=== PATIENT | female | born 1945 | race Caucasian/White ===

== ENCOUNTER → 2023-09-18 06:44 | Outpatient (REF) | payer MEDICARE, SELFPAY ==
[2023-09-18 07:55] LABS: Urine Albumin Trace (Neg - Trace); Urine Bilirubin Negative (Negative); Urine Character Clear (Clear); Urine Color Yellow; Urine Glucose Negative (Negative); Urine Ketone Negative (Negative); Urine Leukocyte Trace (Negative); Urine Nitrite Negative (Negative); Urine Occult Blood Negative (Negative); Urine Urobilinogen Negative (Neg - 1+)
[2023-09-18 08:10] LABS: Urine Bacteria Few (Negative); Urine Mucus Few; Urine Red Blood Cell 0-2 /HPF (0-2)
[2023-09-18 08:11] LABS: % Basophils 1.1 % (0-2); % Eosinophils 2.3 % (0-6); % Immature Granulocytes 0.2 % (0-0.5); % Lymphocytes 30.8 % (20.5-51.1); % Neutrophils 56.6 % (42.2-75.2); Absolute Basophils 0.1 10^3/uL (0-0.2); Absolute Eosinophils 0.1 10^3/uL (0-0.7); Absolute Lymphocytes 1.9 10^3/uL (1.2-3.4); Absolute Monocytes 0.6 10^3/uL (0.1-0.6); Absolute Neutrophils 3.5 10^3/uL (1.4-6.5); Hematocrit 37.8 % (37.0-47.0); Hemoglobin 12.3 g/dL (12.0-16.0); Mean Corp Hgb Conc. 32.5 g/dL (33.0-37.0); Mean Corpuscular Hgb 28.1 pg (27.0-31.0); Mean Corpuscular Volume 86.5 fL (81.0-99.0); Mean Platelet Volume 10.1 fL (7.4-10.4); Nucleated Red Blood Cells % 0 %; Platelet Count 242 10^3/uL (130-400); Red Blood Cell Count 4.37 10^6/uL (4.20-5.40); Red Cell Dist. Width 14.3 % (11.5-14.5); White Blood Cell Count 6.1 10^3/uL (4.8-10.8)
[2023-09-18 08:13] LABS: Erythrocyte Sed Rate 24 mm/hour (0-20)
[2023-09-18 08:42] LABS: ALT (SGPT) 26 U/L (0-35); AST (SGOT) 27 U/L (14-36); Albumin 3.7 g/dl (3.5-5.0); Alkaline Phosphatase 76 U/L (38-126); Blood Urea Nitrogen 29 mg/dl (7-17); Calcium 9.3 mg/dl (8.4-10.2); Carbon Dioxide 24 mmol/L (22-30); Chloride 105 mmol/L (98-107); Glucose 125 mg/dl (70-99); HDL Cholesterol 52 mg/dl; Iron 65 ug/dl (37-170); Potassium 3.9 mmol/L (3.5-5.1); Sodium 139 mmol/L (135-145); Total Bilirubin 0.5 mg/dl (0.2-1.3); Total Cholesterol 116 mg/dl (50-199); Total Protein 6.1 g/dl (6.3-8.2); eGFR > 60.00
[2023-09-18 08:52] LABS: Percent Saturation 19 % (20-50); Total Iron Binding Capacity 336 ug/dl (265-497)
[2023-09-18 09:01] LABS: LDL Cholesterol, Calculated 20 mg/dl; Triglyceride 224 mg/dl (10-149); Very Low Density Lipoprotein 44 mg/dl (0-30)
[2023-09-18 09:06] LABS: Free T4 1.33 ng/dl (0.78-2.19)
[2023-09-18 09:18] LABS: Glycohemoglobin (HgbA1c) 6.5 % (4.0-5.6)
[2023-09-18 09:24] LABS: Ferritin 33.6 ng/ml (11.1-264.0)
[2023-09-18 09:31] LABS: Vitamin D, 25-OH*** 46.7 ng/mL (30-80)
[2023-09-18 09:40] LABS: Microalbumin/creatinine Ratio 50.9 mg/g
[2023-09-18 09:52] LABS: CRP, Highly Sensitive 0.88 mg/L
[2023-09-18 09:56] LABS: Folate 13.1 ng/ml (2.76-20)
[2023-09-20 11:41] LABS: Lipoprotein a (Lp a) 8 mg/dL (<=29)
[2023-09-20 11:46] LABS: Apolipoprotein B 58 mg/dL (60-117)
[2023-09-21 17:02] LABS: Lyme Antibody Screen, EIA Negative (Negative)
[2023-09-23 13:58] LABS: TSH 1.57 uIU/ml (0.47-4.68)
== END ==
LOC: REG 06:44
PROVIDERS: ATTENDING PHYSICIAN Internal Medicine Hematology & Oncology; FAMILY PHYSICIAN Internal Medicine; REFERRING PHYSICIAN Ophthalmology Neuro-ophthalmology
DX: D50.0 Iron deficiency anemia secondary to blood loss (chronic) (principal); D51.9 Vitamin B12 deficiency anemia, unspecified; M31.6 Other giant cell arteritis; D64.9 Anemia, unspecified; Z78.9 Other specified health status; Z00.00 Encounter for general adult medical examination without abnormal findings; E55.9 Vitamin D deficiency, unspecified; E11.9 Type 2 diabetes mellitus without complications
CPT/HCPCS: 36415; 80053; 80061; 81003; 81015; 82043; 82172; 82306; 82570; 82728; 82746; 83036; 83540; 83550; 83695; 84439; 84443; 85025; 85652; 86140; 86141; 86618

== ENCOUNTER → 2023-09-28 11:19 | Outpatient (REF) | payer MEDICARE, SELFPAY | LOC: HWWDC 11:19 | PROVIDERS: ATTENDING PHYSICIAN Internal Medicine | DX: Z12.31 Encounter for screening mammogram for malignant neoplasm of breast (principal) | CPT/HCPCS: 77063; 77067 ==

== ENCOUNTER → 2023-10-05 14:36 | Outpatient (REF) | payer MEDICARE, SELFPAY | LOC: DHCBC HW 14:36 | PROVIDERS: ATTENDING PHYSICIAN Internal Medicine Cardiovascular Disease | DX: I51.7 Cardiomegaly (principal) | CPT/HCPCS: 93306 ==

== ENCOUNTER → 2023-10-07 06:54 | Outpatient (REF) | payer MEDICARE, SELFPAY | LOC: MRI 06:54 | PROVIDERS: ATTENDING PHYSICIAN Physician Assistant Medical; FAMILY PHYSICIAN Internal Medicine | DX: M48.062 Spinal stenosis, lumbar region with neurogenic claudication (principal) | CPT/HCPCS: 72148 ==

== ENCOUNTER → 2023-10-19 08:30 | Outpatient (REF) | payer MEDICARE, SELFPAY ==
[2023-10-19 10:25] LABS: % Basophils 1.3 % (0-2); % Eosinophils 1.7 % (0-6); % Immature Granulocytes 0.2 % (0-0.5); % Lymphocytes 21.9 % (20.5-51.1); % Monocytes 11.4 % (1.7-9.3); % Neutrophils 63.5 % (42.2-75.2); Absolute Basophils 0.1 10^3/uL (0-0.2); Absolute Eosinophils 0.1 10^3/uL (0-0.7); Absolute Lymphocytes 1.4 10^3/uL (1.2-3.4); Absolute Monocytes 0.7 10^3/uL (0.1-0.6); Absolute Neutrophils 4.1 10^3/uL (1.4-6.5); Hematocrit 42.2 % (37.0-47.0); Hemoglobin 13.2 g/dL (12.0-16.0); Mean Corp Hgb Conc. 31.3 g/dL (33.0-37.0); Mean Corpuscular Hgb 27.6 pg (27.0-31.0); Mean Corpuscular Volume 88.1 fL (81.0-99.0); Mean Platelet Volume 10.7 fL (7.4-10.4); Nucleated Red Blood Cells % 0 %; Platelet Count 213 10^3/uL (130-400); Red Blood Cell Count 4.79 10^6/uL (4.20-5.40); Red Cell Dist. Width 15.1 % (11.5-14.5); White Blood Cell Count 6.4 10^3/uL (4.8-10.8)
[2023-10-19 10:59] LABS: Erythrocyte Sed Rate 20 mm/hour (0-20)
[2023-10-19 11:04] LABS: Iron 42 ug/dl (37-170)
[2023-10-19 11:09] LABS: C-Reactive Protein < 5.00 mg/L (0.0-10.00)
[2023-10-19 11:16] LABS: Percent Saturation 12 % (20-50); Total Iron Binding Capacity 340 ug/dl (265-497)
[2023-10-19 11:45] LABS: Ferritin 29.2 ng/ml (11.1-264.0)
== END ==
LOC: REG 08:30
PROVIDERS: ATTENDING PHYSICIAN Internal Medicine Hematology & Oncology; FAMILY PHYSICIAN Internal Medicine; OTHER PHYSICIAN Ophthalmology; REFERRING PHYSICIAN Ophthalmology Neuro-ophthalmology
DX: D50.0 Iron deficiency anemia secondary to blood loss (chronic) (principal); D51.9 Vitamin B12 deficiency anemia, unspecified; M31.6 Other giant cell arteritis
CPT/HCPCS: 36415; 82728; 83540; 83550; 85025; 85652; 86140

== ENCOUNTER → 2023-10-21 09:13 | Outpatient (REF) | payer MEDICARE, SELFPAY | LOC: RCS 09:13 | PROVIDERS: ATTENDING PHYSICIAN Internal Medicine Cardiovascular Disease; FAMILY PHYSICIAN Internal Medicine | DX: I48.0 Paroxysmal atrial fibrillation (principal) | CPT/HCPCS: 93225; 93226 ==

== ENCOUNTER → 2023-11-25 06:54 | Outpatient (REF) | payer MEDICARE, SELFPAY ==
[2023-11-25 07:52] LABS: % Basophils 1.5 % (0-2); % Eosinophils 1.7 % (0-6); % Immature Granulocytes 0.2 % (0-0.5); % Monocytes 8.3 % (1.7-9.3); % Neutrophils 60.3 % (42.2-75.2); Absolute Basophils 0.1 10^3/uL (0-0.2); Absolute Eosinophils 0.1 10^3/uL (0-0.7); Absolute Lymphocytes 1.7 10^3/uL (1.2-3.4); Absolute Monocytes 0.5 10^3/uL (0.1-0.6); Absolute Neutrophils 3.6 10^3/uL (1.4-6.5); Hematocrit 39.6 % (37.0-47.0); Mean Corp Hgb Conc. 32.8 g/dL (33.0-37.0); Mean Corpuscular Hgb 28.3 pg (27.0-31.0); Mean Corpuscular Volume 86.1 fL (81.0-99.0); Mean Platelet Volume 9.9 fL (7.4-10.4); Nucleated Red Blood Cells % 0 %; Platelet Count 237 10^3/uL (130-400); Red Cell Dist. Width 14.5 % (11.5-14.5)
[2023-11-25 08:18] LABS: Urine Albumin Negative (Neg - Trace); Urine Bilirubin Negative (Negative); Urine Character Clear (Clear); Urine Color Yellow; Urine Glucose Negative (Negative); Urine Ketone Negative (Negative); Urine Leukocyte Negative (Negative); Urine Nitrite Negative (Negative); Urine Occult Blood Negative (Negative); Urine Specific Gravity 1.015 (<1.030); Urine Urobilinogen Negative (Neg - 1+)
[2023-11-25 09:18] LABS: Iron 66 ug/dl (37-170)
[2023-11-25 09:27] LABS: Percent Saturation 18 % (20-50); Total Iron Binding Capacity 364 ug/dl (265-497)
[2023-11-25 09:41] LABS: Erythrocyte Sed Rate 18 mm/hour (0-20)
[2023-11-25 09:53] LABS: ALT (SGPT) 38 U/L (0-35); AST (SGOT) 35 U/L (14-36)
[2023-11-25 09:55] LABS: ALT (SGPT) 38 U/L (0-35); AST (SGOT) 35 U/L (14-36); Albumin 4.3 g/dl (3.5-5.0); Alkaline Phosphatase 98 U/L (38-126); Blood Urea Nitrogen 27 mg/dl (7-17); Calcium 9.5 mg/dl (8.4-10.2); Carbon Dioxide 23 mmol/L (22-30); Chloride 109 mmol/L (98-107); Glucose 122 mg/dl (70-99); HDL Cholesterol 67 mg/dl; LDL Cholesterol, Calculated 32 mg/dl; Potassium 4.4 mmol/L (3.5-5.1); Sodium 138 mmol/L (135-145); Total Bilirubin 0.3 mg/dl (0.2-1.3); Total Cholesterol 134 mg/dl (50-199); Total Protein 6.8 g/dl (6.3-8.2); Triglyceride 177 mg/dl (10-149); Very Low Density Lipoprotein 35 mg/dl (0-30); eGFR > 60.00
[2023-11-25 10:11] LABS: C-Reactive Protein < 5.00 mg/L (0.0-10.00)
[2023-11-25 10:28] LABS: Ferritin 22.8 ng/ml (11.1-264.0)
[2023-11-25 12:12] LABS: Glycohemoglobin (HgbA1c) 6.4 % (4.0-5.6)
== END ==
LOC: REG 06:54
PROVIDERS: ATTENDING PHYSICIAN Ophthalmology; FAMILY PHYSICIAN Internal Medicine; OTHER PHYSICIAN Internal Medicine Hematology & Oncology; OTHER PHYSICIAN Ophthalmology Neuro-ophthalmology; REFERRING PHYSICIAN Internal Medicine Cardiovascular Disease
DX: D50.0 Iron deficiency anemia secondary to blood loss (chronic) (principal); D51.9 Vitamin B12 deficiency anemia, unspecified; E78.2 Mixed hyperlipidemia; E11.9 Type 2 diabetes mellitus without complications; N39.0 Urinary tract infection, site not specified; H40.013 Open angle with borderline findings, low risk, bilateral; H43.813 Vitreous degeneration, bilateral; H34.11 Central retinal artery occlusion, right eye; D50.1 Sideropenic dysphagia
CPT/HCPCS: 36415; 80053; 80061; 81003; 82728; 83036; 83540; 83550; 84450; 84460; 85025; 85652; 86140

== ENCOUNTER → 2023-12-07 13:48 | Outpatient (REF) | payer MEDICARE, SELFPAY ==
[2023-12-07 14:17] LABS: % Immature Granulocytes 0.3 % (0-0.5); % Lymphocytes 22.6 % (20.5-51.1); % Monocytes 12.7 % (1.7-9.3); % Neutrophils 62.4 % (42.2-75.2); Absolute Lymphocytes 0.9 10^3/uL (1.2-3.4); Absolute Monocytes 0.5 10^3/uL (0.1-0.6); Absolute Neutrophils 2.4 10^3/uL (1.4-6.5); Hematocrit 40.1 % (37.0-47.0); Mean Corp Hgb Conc. 32.4 g/dL (33.0-37.0); Mean Corpuscular Hgb 28.3 pg (27.0-31.0); Mean Corpuscular Volume 87.4 fL (81.0-99.0); Mean Platelet Volume 9.8 fL (7.4-10.4); Nucleated Red Blood Cells % 0 %; Platelet Count 185 10^3/uL (130-400); Red Blood Cell Count 4.59 10^6/uL (4.20-5.40); Red Cell Dist. Width 14.3 % (11.5-14.5); White Blood Cell Count 3.9 10^3/uL (4.8-10.8)
[2023-12-07 14:21] LABS: Urine Albumin Trace (Neg - Trace); Urine Bilirubin Negative (Negative); Urine Character Clear (Clear); Urine Color Yellow; Urine Glucose Negative (Negative); Urine Ketone Trace (Negative); Urine Leukocyte Negative (Negative); Urine Nitrite Negative (Negative); Urine Occult Blood Negative (Negative); Urine Specific Gravity 1.015 (<1.030); Urine Urobilinogen Negative (Neg - 1+)
[2023-12-07 14:48] LABS: ALT (SGPT) 43 U/L (0-35); AST (SGOT) 44 U/L (14-36); Alkaline Phosphatase 78 U/L (38-126); Blood Urea Nitrogen 21 mg/dl (7-17); Calcium 8.9 mg/dl (8.4-10.2); Carbon Dioxide 24 mmol/L (22-30); Chloride 105 mmol/L (98-107); Glucose 145 mg/dl (70-99); Lipase 100 U/L (23-300); Potassium 3.9 mmol/L (3.5-5.1); Sodium 136 mmol/L (135-145); Total Bilirubin 0.3 mg/dl (0.2-1.3); Total Protein 6.5 g/dl (6.3-8.2); eGFR > 60.00
[2023-12-07 15:02] LABS: Urine Mucus Few
[2023-12-07 15:03] LABS: Urine Bacteria Few (Negative); Urine Red Blood Cell 0-2 /HPF (0-2); Urine White Cell 0-2 /HPF (0-5)
== END ==
LOC: REG 13:48
PROVIDERS: ATTENDING PHYSICIAN Internal Medicine
DX: R10.9 Unspecified abdominal pain (principal)
CPT/HCPCS: 36415; 80053; 81003; 81015; 83690; 85025; 87086

== ENCOUNTER → 2023-12-08 08:08 | Outpatient (REF) | payer MEDICARE, SELFPAY | LOC: HWRAD 08:08 | PROVIDERS: ATTENDING PHYSICIAN Internal Medicine | DX: R10.9 Unspecified abdominal pain (principal) | CPT/HCPCS: 74177; Q9967 ==

== ENCOUNTER 2023-12-14 09:26 | Inpatient (IN) | payer MEDICARE, SELFPAY ==
[2023-12-11 16:24] VITALS: BP 158/71
[2023-12-11] MEDS: TYLENOL 650 MG PO (17:03)
[2023-12-11 17:07] LABS: COVID-19 Antigen Negative (Negative)
--- NOTE | 2023-12-11 19:18 | ED.GENMED ---
History of Present Illness
General
Chief Complaint: Weakness
Source: patient, spouse and physician
Exam Limitations: none
Time Seen by Provider: 12/11/23 18:58
Nursing documentation reviewed up to this point in time: agreed with
Travel History
Have you had any contact with someone who has COVID-19?: No
Do you have any symptoms of coronavirus? Fever > 100 degrees, chills, cough, shortness of breath, sore throat, loss of taste or smell, muscle aches, or headache?: No
History of Present Illness
History of Present Illness:
78-year-old female presents the emergency department complaining of weakness, numbness and tingling, back pain and neck pain. She has worse pain in her legs. She denies any fecal incontinence, she does have urinary incontinence, but is unchanged.
No groin numbness. She has been having diarrhea, and is on Augmentin for diverticulitis.
Past History
Past History
ED Past Medical History: GERD, HTN, Hypercholesterolemia, NIDDM, Valvular disease, Other (Vertigo, retinal migraine, chronic lacunar frontal lobe, COVID-19 12/2021) and Other (pancreatic cysts, fatty liver, psoriasis, iron deficiency, epidural
steroids lumbar spine)
ED Past Surgical History: Cardiac (aortic valve replacement 2009), Cholecystectomy, Gynecological (hysterectomy 1978), Orthopedic (right carpal tunnel release, cervical spine discectomy 1996, bilateral knee replacements), Tonsilectomy, Urological
(ureteral stent and removal 2013) and Other (cataract extractions OU, lumbar rhizotomy)
Social History
Tobacco: Non-smoker
Alcohol: None
Drug: None
Personal:
Living: with family
Employment: Retired
Family History
Family History: Other
Review of Systems
Review of Systems
Allergies reviewed?: Yes
All Other Systems: Not applicable
Constitutional: Reports no symptoms
EENT: Reports no symptoms
Respiratory: Reports no symptoms
Cardiac: Reports no symptoms
ABD/GI: Reports abdominal pain
: Reports no symptoms
Musculoskeletal: Reports back pain
Skin: Reports no symptoms
Neurological: Reports no symptoms
Endocrine: Reports no symptoms
Hematologic/Lymphatic: Reports no symptoms
Phy Exam
Physical Exam
Physical Exam:
Physical Exam
General: Appears uncomfortable temperature 99.5
Neck: supple. no meningeal signs. normal posterior pharynx
Heart: s1/s2 regular rate and rhythm, no murmur. equal radial
pulses.
HEENT: Pupils equal round reactive to light, EOMI
Lungs: no acute respiratory distress. clear bilaterally
Abdomen: normal bowel sounds. Diffuse abdominal tenderness. no CVAT
Neuro: alert and oriented. no focal neurological deficits cranial nerves II through XII intact
Skin: no rash
Psychiatric: well kept. interactive and cooperative
Extremities: no edema. no calf tenderness. negative homans. good distal pulses, full range of motion of the lower legs, but with pain
Course
Orders/Labs/Results
Orders:
Orders
12/11/23 16:32
Acetaminophen [Tylenol] 650 mg .ROUTE .STK-MED ONE
12/11/23 16:38
COVID-19 Antigen Urgent
Source: Nasal Swab
Influenza A+B Rapid Molecular Urgent
FRANCOISE Source: Nasal Swab
Specimen Description:
12/11/23 17:03
Acetaminophen [Tylenol] 650 mg PO NOW STA
12/11/23 19:16
Iohexol [Omnipaque] See Protocol PO NOW STA
12/11/23 19:17
CT Abd/pel W Iv And Oral Contr Urgent
Comment:
Reason For Exam: diffuse abdominal pain, worsening, diarrhea
12/11/23 19:20
Complete Blood Count/With Diff Urgent
Prothrombin Time Urgent
12/11/23 19:22
Ondansetron Injectable [Zofran] 4 mg IV NOW STA
12/11/23 19:23
Electrocardiogram (*1) Stat
Reason for Study: Fatigue / Weakness
Electrocardiogram (*1) Urgent
EKG- Treatment ONCE
12/11/23 19:46
STOOL [C difficile Antigen & Toxins] Urgent
FRANCOISE Source: Feces/Stool
Specimen Description:
Stool Culture Urgent
FRANCOISE Source: Feces/Stool
Specimen Description:
12/11/23 19:54
Basic Metabolic Panel Urgent
12/11/23 21:19
Potassium Urgent
12/11/23 21:25
CT Head W/o Iv Contrast Urgent
Comment:
Reason For Exam: headache
Abnormal Lab Results
12/11/23 12/11/23 12/11/23
19:20 19:54 22:25
Absolute Monos (auto) 0.9 H 10^3/uL
(0.1-0.6)
Lymphocytes % 19.4 L %
(20.5-51.1)
Monocytes % 11.4 H %
(1.7-9.3)
PT 29.3 H Sec
(11.4-14.6)
Chloride 108 H mmol/L
(98-107)
BUN 23 H mg/dl
(7-17)
Glucose 122 H mg/dl
(70-99)
POC Glucose 116 H mg/dl
(70-99)
12/11/23 19:20
12/11/23 21:19
Vital Signs
Initial and Last Documented VS:
Initial Vital Signs
Temp Pulse Resp BP Pulse Ox
99.5 F 74 18 158/71 99
12/11/23 16:24 12/11/23 16:24 12/11/23 16:24 12/11/23 16:24 12/11/23 16:24
Last Documented Vital Signs
Temp Pulse Resp BP Pulse Ox
98.2 F 65 14 182/57 97
12/11/23 19:41 12/11/23 21:00 12/11/23 21:00 12/11/23 21:00 12/11/23 19:45
MDM/Problems Addressed
Differential Diagnosis Includes:
Cauda equina, sepsis, diverticulitis
MDM/Problems Addressed:
78-year-old female with weakness, diarrhea, CT concerning for possible inflammatory bowel, fever. Unclear etiology of fever. Possibly viral diarrhea. Patient with difficulty walking. Will admit to hospitalist. Patient also with a headache, no
concerning neurologic findings. Low back pain with radiculopathy. Do not suspect cauda equina.
Chronic conditions affecting care: HTN and Other (Aortic stenosis)
Acute Exacerbation and/or Progression of Chronic Illness: HTN and Other (Aortic stenosis)
*Radiology
Radiology exam reviewed: radiology read reviewed (CT head no acute finding, CT abdomen pelvis shows possible inflammatory bowel disease of terminal ileum, left adrenal mass, diverticulosis, rectosigmoid nondistention)
*Pulse Oximetry
Patient hypoxic: no
*EKG
Interpreted by ED Provider?: Yes
EKG Intrepretation Date: 12/11/23
EKG Intrepretation Time: 19:40
Interpretation: abnormal
Comparison EKG: changes noted
Heart Rate: 54
Rate: bradycardiac
Rhythm: sinus
Paoli: left axis deviation
Interval: normal interval
QRS Pattern: left bundle branch block
Ischemia: no ischemia
*Resistance Machine Welder Setter Interpretation
Rate: bradycardiac
Interpretation: abnormal
Heart Rate: 55
Rhythm: sinus
*Critical Care Note
Total Time (30-74mins, 75-104mins- exclusive of procedures): Not Applicable
Data Reviewed
Source: physician (INR 3.8 at office today)
Patient Management
Social determinants of health affecting care: Living situation
Discussion with other providers: Hospitalist
Escalation/DeEscalation of care consider admission/obs:
admit indicated
ED Attending Note
-
Portions of this chart may have been created with voice recognition software.� Occasional wrong word or��sound alike� substitutions may have occurred due to the inherent limitations of voice recognition software.
Discharge Plan
Departure
Patient Disposition: Admit
Date of Disposition: 12/11/23
Time of Disposition: 23:09
Admit to: Telemetry
Presentation/result/management discussed w/ accepting MD/DO: Hospitalist
Patient with high blood pressure during this ER visit?: Yes
Condition: Fair
Discharge Problem:
Weakness, Diarrhea, Low back pain, Headache
Prescriptions:
No Action
omeprazole 40 MG capsule,delayed release(DR/EC)
40 mg PO DAILY
riboflavin (vitamin B2) 400 MG tablet
400 mg PO DAILY
warfarin 5 mg tablet
2.5 mg PO SUFRSA
Patient Comments:
12/11/2023: Pt checked INR today, and then rechecks thursday for new dose
furosemide 20 mg tablet
20 mg PO DAILY
potassium chloride 20 mEq tablet extended release
20 meq PO DAILY
rosuvastatin 20 mg tablet
20 mg PO DAILY Qty: 90 0RF
losartan 50 mg tablet
50 mg PO BID
latanoprost 0.005 % drops
1 drp BOTH EYES HS
magnesium oxide 500 mg magnesium Tablet
500 mg PO TID
dorzolamide-timolol 22.3-6.8 mg/mL drops
1 drp BOTH EYES BID
amoxicillin-pot clavulanate 875-125 mg tablet
1 tab PO Q12H
insulin glargine [Lantus Solostar U-100 Insulin] 100 unit/mL (3 mL) insulin pen
6 unit SC DAILY
PreserVision AREDS 2,148 mcg-113 mg-45 mg-17.4mg Tablet
1 tab PO DAILY
Referrals:
Silvia Pena MD [Family Provider] -
Interventions
Interventions:
*Risk Screen - Suicide Last Done: 12/11/23 16:24
*General Assessment Last Done: 12/11/23 16:24
*Neglect/Abuse Screening Last Done: 12/11/23 16:24
ED- Cardiac Assessment Last Done: 12/11/23 21:27
ED- Neurological Assessment Last Done: 12/11/23 21:27
ED- Pulmonary Assessment Last Done: 12/11/23 21:27
Discharge Date and Time
Print Language: MOLDOVAN
[2023-12-11 19:26] LABS: % Basophils 0.5 % (0-2); % Eosinophils 0.4 % (0-6); % Immature Granulocytes 0.3 % (0-0.5); % Lymphocytes 19.4 % (20.5-51.1); % Monocytes 11.4 % (1.7-9.3); Absolute Lymphocytes 1.5 10^3/uL (1.2-3.4); Absolute Monocytes 0.9 10^3/uL (0.1-0.6); Absolute Neutrophils 5.3 10^3/uL (1.4-6.5); Hemoglobin 12.2 g/dL (12.0-16.0); Mean Corpuscular Hgb 28.6 pg (27.0-31.0); Mean Corpuscular Volume 86.7 fL (81.0-99.0); Mean Platelet Volume 9.7 fL (7.4-10.4); Nucleated Red Blood Cells % 0 %; Platelet Count 208 10^3/uL (130-400); Red Blood Cell Count 4.27 10^6/uL (4.20-5.40); Red Cell Dist. Width 13.7 % (11.5-14.5); White Blood Cell Count 7.8 10^3/uL (4.8-10.8)
[2023-12-11] MEDS: OMNIPAQUE 50 ML PO (19:32)
[2023-12-11] MEDS: ZOFRAN 4 MG IV (19:32)
[2023-12-11 19:37] LABS: INR 2.79; PT 29.3 Sec (11.4-14.6)
[2023-12-11 19:41] VITALS: BP 176/61
[2023-12-11 19:42] VITALS: BP 176/61
[2023-12-11 20:34] LABS: Blood Urea Nitrogen 23 mg/dl (7-17); Calcium 8.9 mg/dl (8.4-10.2); Carbon Dioxide 22 mmol/L (22-30); Chloride 108 mmol/L (98-107); Glucose 122 mg/dl (70-99); Sodium 136 mmol/L (135-145); eGFR > 60.00
[2023-12-11 21:00] VITALS: BP 182/57
[2023-12-11 21:54] LABS: Potassium 3.7 mmol/L (3.5-5.1)
[2023-12-11 22:27] VITALS: BP 166/58
[2023-12-11 22:27] LABS: Glucose - Point of Care 116 mg/dl (70-99)
[2023-12-11 23:00] VITALS: BP 147/56
--- NOTE | 2023-12-11 23:31 | HPS.HSE ---
Family Physician
-
Family Physician: Silvia Pena
Chief Complaint
-
Ongoing diarrhea, generalized weakness, bilateral knee pain, chronic headaches, right-sided rib pain
History of Present Illness
78-year-old female complaining of acute generalized weakness arms, legs and pain in her knees today. She saw her PCP in the office today who sent her to the ER for evaluation because she had a temperature of 100 F in the office. She has history of
lumbar back pain with history of lumbar epidurals and lumbar rhizotomy left side. She has been having right-sided back pain and is scheduled for an epidural with her pain management in [place]. She also complains of right posterior back pain
along the 12th rib area denies any injury. On Thursday she reports she had abdominal cramping with some pudding-like and pencil like stools she called her PCP who placed her on Augmentin for concern of diverticulitis since she had first episode in
August. She has not told her doctor or GI doctor that she has pencil like stools and pudding-like stools with her urinary incontinence since August that is ongoing. I advised the patient we will consult GI given her CT shows possible
inflammatory bowel disease possible Crohn's. She denies sore throat, chest pain, palpitations, cough, shortness of breath, current abdominal pain, nausea, vomiting, watery diarrhea, blood in stool, mucus in stool, dysuria, suprapubic tenderness.
She is also complaining of her chronic daily migraine headaches for which she takes Tylenol 1000 mg in the a.m. She was given Tylenol 1000 mg in the ER for pain.
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
stenosis, DM2 chronic diastolic CHF, HLD, obesity, CVA small right frontal periventricular chronic hemorrhagic lacunar infarct, small chronic lacunar infarct involving the right brachium pontis, recurrent melena and iron deficiency anemia, gastric
antral vascular ectasia with GI bleed Hx, GERD, diverticulosis with colonic polyps, fatty liver, vertigo, psoriasis, COVID 19 Dec 2021.
Medical History
Past Medical History
Past Medical History: Reports Other
Additional Past Medical History:
1. Aortic stenosis with previous mechanical AVR in July
� � 2009.
2. Chronic diastolic heart failure with preserved ejection
� � fraction, EF 55-60 percent.
3. Pulmonary hypertension
4. Left bundle branch block
5. Transient complete heart block
6. Paroxysmal atrial fibrillation
7. Sick sinus syndrome
8. Recurrent melena and iron deficiency anemia.
9. 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
10.Gastroesophageal reflux disease.
11.Diverticulosis and colon polyps.
12.Diabetes.
13.Hypertension.
14.Hyperlipidemia.
15.Fatty liver.
16. Vertigo
17. Retinal migraine
18. CVA
19. Pancreatic cyts
20. Psoriasis
Past Surgical History: Reports Other
Additional Past Surgical History:
Cardiac (mechanical aortic valve replacement 2009), Cholecystectomy, Gynecological (hysterectomy 1978), Orthopedic (right carpal tunnel release, cervical spine discectomy 1996, bilateral knee replacements), Tonsilectomy, Urological (ureteral stent
and removal 2013) and Other (cataract extractions OU, lumbar rhizotomy)
Social History
Tobacco: Non-smoker
Alcohol: None
Drug: None
Personal:
Living: With Family
Family History
Family History: Not pertinent
Allergies / Home Medications
Allergies reflects when Allergies were last updated in [employer].
Home Medications with original date entered in [employer]
Allergy/Medication List:
Allergies
Allergy/AdvReac Type Severity Reaction Status Date / Time
rizatriptan Allergy Foggy/Scared Verified 12/11/23 19:29
feeling
sumatriptan Allergy Foggy/Scared Verified 12/11/23 19:29
feeling
topiramate Allergy Foggy/Scared Verified 12/11/23 19:29
feeling
valproic acid Allergy Foggy/Scared Verified 12/11/23 19:29
feeling
Home Medications
omeprazole 40 mg capsule,delayed release 40 mg PO DAILY Gastrointestinal issue 06/24/19
riboflavin (vitamin B2) 400 mg tablet 400 mg PO DAILY Supplement 02/18/22
warfarin 5 mg tablet 2.5 mg PO SUFRSA Blood clot prevention/tx 07/02/22
furosemide 20 mg tablet 20 mg PO DAILY Fluid Retention/Swelling 11/25/22
potassium chloride 20 mEq tablet,extended release 20 meq PO DAILY Electrolyte Repletion 11/25/22
rosuvastatin 20 mg tablet 20 mg PO DAILY #90 tabs 12/24/22
amoxicillin 875 mg-potassium clavulanate 125 mg tablet 1 tab PO Q12H 12/11/23
dorzolamide 22.3 mg-timolol 6.8 mg/mL eye drops 1 drp BOTH EYES BID 12/11/23
insulin glargine 100 unit/mL (3 mL) subcutaneous pen (Lantus Solostar U-100 Insulin) 6 unit SC DAILY 12/11/23
latanoprost 0.005 % eye drops 1 drp BOTH EYES HS 12/11/23
losartan 50 mg tablet 50 mg PO BID 12/11/23
magnesium oxide 500 mg PO TID 12/11/23
vitamins A,C,I-drxw-dwlvzv 2,148 mcg-113 mg-45 mg-17.4 mg tablet (PreserVision AREDS) 1 tab PO DAILY 12/11/23
Review of Systems
-
History Source: Patient
A 12 point ROS was completed and negative except as noted: Yes
Constitutional: Reports Fever; Denies Weight Gain, Weight Loss or Chills
EENT: Denies Sore Throat or Runny Nose
Respiratory: Reports Other (Right-sided rib pain along 12th rib); Denies Cough or Trouble Breathing
Cardiac: Denies Chest Pain, Diaphoresis, Palpitations or Syncope
Abdomen/GI: Reports Diarrhea (Ongoing pencillike/pudding-like stools); Denies Abdominal Pain, Nausea, Vomiting, Constipated, Bloody Stools, Black Stools or Anorexia
: Reports Incontinence (Chronic urinary); Denies Dysuria, Frequency, Flank Pain, Difficulty Voiding or Urgency
Musculoskeletal: Reports Joint Pain (Bilateral knee pain); Denies Joint Swelling or Edema
Skin: Denies Itching or Rash
Neurological: Reports Headache (Chronic daily) and Weakness (Generalized with no focal deficits); Denies Dizzy or Numbness
Endocrine: Reports No Symptoms
Hematologic/Lymphatic: Reports No Symptoms
Psych: Reports Calm
Physical Exam
Vital Signs
Vital Signs
Temp Pulse Resp BP Pulse Ox
98.2 F 65 14 182/57 97
12/11/23 19:41 12/11/23 21:00 12/11/23 21:00 12/11/23 21:00 12/11/23 19:45
Physical Exam
General: Comfortable, Conversant and Obese; No Fever or Chills
HEENT: NormoCephalic, Anicteric, Moist mucous membranes, PERRLA, [place] Conjunctivae and No Ptosis
Respiratory: Clear and Other (Tenderness along right posterior 12th rib muscle on palpation); No Wheezes, Rales or Rhonchi
Cardiac: S1/S2, Bradycardia (Sinus bradycardia) and Other (Systolic with known mechanical AVR); No Murmur, Rub, Gallop, Peripheral Edema, Calf Tenderness or JVD
Breast: Deferred by me
GI: Soft, Non Tender, Non Distended, Normal Bowel Sounds and No Hepatosplenomegaly
Rectal: Deferred by Provider
Genito-urinary: Deferred by me
Musculoskeletal: No Clubbing, No Cyanosis, No Edema and Other (History of bilateral knee replacements no joint effusions no rashes)
Skin: Warm and Dry; No Rash or Jaundice
Neuro: AO x 3, No Motor Deficits, Nonfocal/grossly intact, Cranial Nerves Intact and No Sensory Deficits; No Slurred Speech, Facial Droop or Tremors
Psych: Calm
Laboratory Results
-
12/11/23 19:20
12/11/23 21:19
Laboratory Results
PT 29.3 Sec (11.4-14.6) H 12/11/23 19:20
INR 2.79 12/11/23 19:20
Total Bilirubin Cancelled 12/11/23 19:54
AST Cancelled 12/11/23 19:54
ALT Cancelled 12/11/23 19:54
Alkaline Phosphatase Cancelled 12/11/23 19:54
Data Reviewed
-
CT Scan: Report Reviewed by me
Lab Data: Labs Reviewed by me
Impression/Plan
-
Impression/plan:
Observation MedSurg
#Ongoing diarrhea concern for inflammatory bowel disease/Rectosigmoid region mild distention cannot rule out mass
Has been taking Augmentin for diverticulitis by PCP will STOP as no diverticulitis on CT
-Stool cultures, stool WBC, C. difficile if watery diarrhea
-Consult GI
-PT/OT/case management consult
-
CT abdomen pelvis with IV and oral contrast:
1. Possible inflammatory bowel disease of the terminal ileum such as Crohn's. Peristalsis cannot be excluded�new mild left adrenal mass
2. Persistent mild nondistention of the rectosigmoid region mass cannot be excluded
3. Cystic pancreatic masses previously evaluated on MRI showed only a mass in pancreatic head no malignancy
4. Stable left adrenal mass noted to be benign adenoma by MRI
5. Diverticulosis no diverticulitis
CT head: No acute intracranial normality. Mild atrophy stable
#Acute on chronic lumbar back pain right side/rib pain due to musculoskeletal strain
#History of lumbar epidural/lumbar rhizotomy left-sided
-Patient follows with pain management Dr. Segura in [place] is due for right-sided epidural
-Lidoderm patch to right rib
#Acute on chronic daily headaches
#Retinal migraines
#Ischemic optic neuropathy right eye
-Continue Tylenol 1000 mg a.m. and as needed twice daily
-Continue latanoprost 1 drop both eyes at bedtime
-Continue B2 400 mg daily
#Acute on chronic bilateral knee pain with ambulatory dysfunction
#History of bilateral knee replacements
Follows with Dr. Dang
Continue Tylenol in a.m. and twice daily as needed follow-up with pain management
-PT/OT/case management eval
#Iron deficiency
-Patient reports has appointment end of December with Dr. Cortez for iron infusion
Hgb 12.2, MCV 86.7
#HTN�benign
BP 171/84
-Continue losartan 50 mg twice daily
#Hypomagnesemia hx
-Check mag level
-Hold Mag-Ox 500 mg 3 times daily due to persistent diarrhea
#Chronic urinary incontinence
Denies dysuria or suprapubic tenderness
#Paroxysmal A-fib on Coumadin
#Hx LBBB
EKG: Sinus bradycardia with PVCs 54 bpm, LBBB has replaced incomplete RBBB QTc 477 MS
2D echo 10/05/2023: EF 55 to 60%, no wall normality, mild to moderate MR, mechanical aortic valve with peak mean gradient 32/17 mmHg, trace aortic regurgitation. MR has progressed from mild to moderate
-Follows with [facility] cardiology
-INR 2.79
# Aortic stenosis status post mechanical AVR 2009
Patient on Coumadin INR 2.79
-Continue Coumadin 2.5 mg Thursday
-Follow INR
#Hx transient heart block/SSS
-EKG: Sinus bradycardia with PVCs 54 bpm, LBBB has replaced incomplete RBBB QTc 477 MS
#Hx CVA
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
#Chronic diastolic heart failure
I/O, daily weights
Hold Lasix 20 mg daily
#DM2
Accu-Cheks with SSI, check HgbA1c
-Lantus 6 units subcu daily
#HLD
-Continue Crestor 20 mg daily
#GERD
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
-Continue omeprazole 40 mg daily
#Obesity due to excess calorie consumption
Weight loss recommended low-fat diet
Other PMH:
recurrent melena
diverticulosis with colonic polyps
fatty liver
vertigo
psoriasis
COVID 19 Dec 2021
DVT prophylaxis
Continue [facility] Coumadin
Full code
[2023-12-11 23:56] VITALS: BMI 32.2
[2023-12-12] VITALS (9 sets, daily range): BP systolic 129–163; BP diastolic 50–84; PULSE 53; O2SAT 95; BMI 30.3
[2023-12-12] MEDS: LIDOCAINE 4% PATCH 1 PATCH TOPICAL (00:49)
[2023-12-12] MEDS: TYLENOL 650 MG PO (00:49)
--- NOTE | 2023-12-12 00:52 | W.PN.UPDATE ---
Update Note
Progress Note Update
Patient seen independently and in conjunction with RACHEAL. I agree with the findings on history and physical exam and I agree with the assessment and plan as stated.
Briefly disease a 78-year-old with multiple medical problems including history of diverticulitis, hypertension, hyperlipidemia, chronic paretic cyst, diabetes and atrial fibrillation as well chronic osteoarthritis status post bilateral knee
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
difficulties. Reviewed the patient's diarrhea is likely from prior. He has chronic incontinence with pencillike stool. She does not have watery diarrhea. She has no evidence of dehydration. She had been placed on Augmentin for abdominal cramps
after discussing with PMD few days ago. She has no fevers or chills. She has no dysuria. Urinary frequency and incontinence unchanged from prior. She has no signs of a UTI otherwise. Patient shows no focal deficits on history.
On exam she has stable vital signs she is hemodynamically stable and in no acute distress. No focal neurological deficits. Abdominal exam was benign. Labs unremarkable.
Diarrhea�I agree with the PA, and no evidence of watery diarrhea or significant volume loss. She has a change in the caliber and consistency of stool which has been persistent for several months. CT shows no evidence of acute diverticulitis. We
are discontinuing the Augmentin and she does not need for antibiotics at this time. Holding MagOx. If low mag, consider slow-MAG for supplementation. CT scan cannot rule out a mass. Patient needs urgent visualization. Will consult GI. She can
ultimately have colonoscopy as an outpatient.
Weakness/lowback pain and ambulatory dysfunction�no focal neurological deficit. She does have chronic osteoarthritis as well as chronic spinal disease. She shows no signs of myelopathy. Will consult PT evaluation. She can continue pain regimen
and follow-up with pain management as an outpatient.
Atrial fibrillation�continue current management with anticoagulation on warfarin
Diabetes�continue lispro with sliding scale insulin
Full Code
--- NOTE | 2023-12-12 03:00 | PTCARENOTE ---
Rc'd patient from ED, AAOx3. No c/o pain at this time. Ambulated to bed with one assist. POC reviewed with patient.
[2023-12-12 07:17] LABS: % Basophils 0.7 % (0-2); % Eosinophils 0.9 % (0-6); % Immature Granulocytes 0.3 % (0-0.5); % Lymphocytes 28.4 % (20.5-51.1); % Monocytes 14.9 % (1.7-9.3); % Neutrophils 54.8 % (42.2-75.2); Absolute Basophils 0.1 10^3/uL (0-0.2); Absolute Eosinophils 0.1 10^3/uL (0-0.7); Absolute Neutrophils 3.8 10^3/uL (1.4-6.5); Hematocrit 35.6 % (37.0-47.0); Hemoglobin 11.9 g/dL (12.0-16.0); Mean Corp Hgb Conc. 33.4 g/dL (33.0-37.0); Mean Corpuscular Hgb 28.4 pg (27.0-31.0); Mean Platelet Volume 9.7 fL (7.4-10.4); Nucleated Red Blood Cells % 0 %; Platelet Count 212 10^3/uL (130-400); Red Blood Cell Count 4.19 10^6/uL (4.20-5.40); Red Cell Dist. Width 13.8 % (11.5-14.5); White Blood Cell Count 6.9 10^3/uL (4.8-10.8)
[2023-12-12 07:21] LABS: INR 2.68; PT 28.4 Sec (11.4-14.6)
[2023-12-12 07:25] LABS: Glucose - Point of Care 114 mg/dl (70-99)
[2023-12-12] MEDS: NOVOLOG FLEXPEN-LOW RESISTANCE SC ×2 (08:37→16:55)
[2023-12-12] MEDS: LASIX 20 MG PO (08:52)
[2023-12-12] MEDS: CRESTOR 20 MG PO (08:52)
[2023-12-12] MEDS: KCL 20 MEQ PO (08:53)
[2023-12-12] MEDS: COZAAR 50 MG PO ×2 (08:53→19:41)
[2023-12-12] MEDS: PROTONIX 40 MG PO (08:53)
[2023-12-12 08:54] LABS: ALT (SGPT) 72 U/L (0-35); AST (SGOT) 56 U/L (14-36); Albumin 3.6 g/dl (3.5-5.0); Alkaline Phosphatase 80 U/L (38-126); Blood Urea Nitrogen 17 mg/dl (7-17); Carbon Dioxide 25 mmol/L (22-30); Chloride 107 mmol/L (98-107); Estimated Creatinine Clearance 66 ml/min; Glucose 106 mg/dl (70-99); Magnesium 2.1 mg/dl (1.6-2.3); Sodium 138 mmol/L (135-145); Total Bilirubin 0.3 mg/dl (0.2-1.3); Total Protein 6.1 g/dl (6.3-8.2); eGFR > 60.00
[2023-12-12] MEDS: LANTUS 0.0599999999999999978 UNITS SC (08:54)
[2023-12-12] MEDS: COSOPT EYE DROPS 1 DROP BOTH EYES ×2 (08:54→19:42)
[2023-12-12] MEDS: COUMADIN 2.5 MG PO (08:56)
--- NOTE | 2023-12-12 09:29 | W.PN.HOSP.TC ---
Today's Communication/Plan
-
Spoke with GI
Hold Coumadin, Heparin Bridging to start soon, anticipated colonoscopy early next week -- per GI outpatient colonoscopy would be too high risk
PT/OT
Assessment / Plan
Assessment / Plan
Physical Exam
General: Not in acute distress
HEENT: Normocephalic
Respiratory: Clear to Auscultation Bilaterally
Cardiac: S1/S2, Bradycardia, Systolic murmur with known mechanical AVR
GI: Soft, Non Tender, Non Distended, Normal Bowel Sounds
Musculoskeletal: No Cyanosis, No Edema and Other (History of bilateral knee replacements no joint effusions no rashes)
Skin: Warm and Dry
Neuro: AAO x 3, Strength 5/5 in bilateral lower extremities, Sensation grossly intact bilaterally, Cranial Nerves Grossly Intact
Psych: Calm

CT abdomen pelvis with IV and oral contrast (as per radiologist's report):
1. Possible inflammatory bowel disease of the terminal ileum such as Crohn's. Peristalsis cannot be excluded�new mild left adrenal mass
2. Persistent mild nondistention of the rectosigmoid region mass cannot be excluded
3. Cystic pancreatic masses previously evaluated on MRI showed only a mass in pancreatic head no malignancy
4. Stable left adrenal mass noted to be benign adenoma by MRI
5. Diverticulosis no diverticulitis
CT head (as per radiologist's report): No acute intracranial normality. Mild atrophy stable

Assessment/Plan
78-year-old with multiple medical problems including history of diverticulitis, hypertension, hyperlipidemia, chronic paretic cyst, diabetes and atrial fibrillation as well chronic osteoarthritis status post bilateral knee replacement, degenerative
disc disease of the lumbosacral spine, history of duodenal bleeding gastric ectasia presented to the emergency department with the immediate of complaints but mostly diarrhea, weakness, low back pain with ambulatory difficulties. On admission, it
was reviewed -- the patient's diarrhea is likely from prior. He has chronic incontinence with pencil-like stool. She does not have watery diarrhea. She has no evidence of dehydration. She had been placed on Augmentin for abdominal cramps after
discussing with PMD few days ago. She had no fevers or chills, dysuria on admission. She had no signs or symptoms or urinary tract infection on admission. Urinary frequency and incontinence unchanged from prior. Patient shows no focal neurological
deficits on history.
#Ongoing diarrhea concern for inflammatory bowel disease/Rectosigmoid region mild distention cannot rule out mass
-Has been taking Augmentin for diverticulitis by PCP -- STOPPED it as no diverticulitis on CT
-Hold MagOx as that can cause diarrhea
-Monitor magnesium level
-Initial CT imaging could not rule out a mass
-Stool cultures, stool WBC, C. difficile if watery diarrhea
-GI consulted, recommendations appreciated: inpatient colonoscopy early next week -- per GI colonoscopy would be higher risk outpatient
-Hold Coumadin, monitor daily INR
-Heparin Bridge to start once INR is less than 2 to 2.5
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
-Consulted cardiology as patient wants cardiology on board
-PT/OT/case management consult
#Generalized Weakness
-Possibly from diarrhea vs. possible mass vs. possible inflammatory process
-Reported chronic back pain but no saddle anesthesia, bowel incontinence, has chronic (but not new urinary incontinence) and on neuro exam is able to demonstrate good strength in the bilateral upper and lower extremities
-Check TSH, vitamin B12
-PT/OT
#Chronic osteoarthritis
#Chronic spinal disease
#Acute on chronic lumbar back pain right side/rib pain due to musculoskeletal strain
#History of lumbar epidural/lumbar rhizotomy left-sided
-Patient follows with pain management Dr. Segura in [place] is due for right-sided epidural
-Lidoderm patch to right rib
-Pain control
-PT/OT
#Acute on chronic daily headaches
#Retinal migraines
#Ischemic optic neuropathy right eye
-Continue Tylenol 1000 mg a.m. and as needed twice daily
-Continue latanoprost 1 drop both eyes at bedtime
-Continue B2 400 mg daily
#Acute on chronic bilateral knee pain with ambulatory dysfunction
#History of bilateral knee replacements
Follows with Dr. Dang
Continue Tylenol in a.m. and twice daily as needed follow-up with pain management
-PT/OT/case management eval
#Iron deficiency
-Patient reports has appointment end of December with Dr. Cortez for iron infusion
Hgb 12.2, MCV 86.7
#HTN�benign
BP 171/84
-Continue losartan 50 mg twice daily
#Hypomagnesemia hx
-Magnesium level okay
-Monitor magnesium level give diarrhea
-Hold Mag-Ox 500 mg 3 times daily due to persistent diarrhea
#Chronic urinary incontinence
Denies dysuria or suprapubic tenderness
#Paroxysmal A-fib on Coumadin
#Hx LBBB
-EKG: Sinus bradycardia with PVCs 54 bpm, LBBB has replaced incomplete RBBB QTc 477 MS
-2D echo 10/05/2023: EF 55 to 60%, no wall normality, mild to moderate MR, mechanical aortic valve with peak mean gradient 32/17 mmHg, trace aortic regurgitation. MR has progressed from mild to moderate
-Follows with [facility]
-INR 2.79, coming down
-Holding Coumadin for now
-Monitor INR
-Heparin Bridge soon depending on INR (patient is anticipated to get a colonoscopy)
# Aortic stenosis status post mechanical AVR 2009
-Patient on Coumadin INR 2.79
-Hold Coumadin 2.5 mg Thursday
-Heparin Bridge once INR goes down to less than 2.5
-Follow INR
#Hx transient heart block/SSS
#Hx CVA
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
#Chronic diastolic heart failure
I/O, daily weights
Hold Lasix 20 mg daily given diarrhea
#DM2
Accu-Cheks with SSI, check HgbA1c
-Lantus 6 units subcu daily
#HLD
-Continue Crestor 20 mg daily
#GERD
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
-Continue omeprazole 40 mg daily
#Obesity due to excess calorie consumption
Weight loss recommended low-fat diet
Other PMH:
recurrent melena
diverticulosis with colonic polyps
fatty liver
vertigo
psoriasis
COVID 19 Dec 2021
DVT prophylaxis -- SCDs. Hold Coumadin with anticipated Heparin Bridging soon
Full code
Anticipated Discharge: > 48 hours
Subjective/Interval History
-
Date of Service: December 12, 2023
Patient was seen and examined. She reported bilateral lower extremity weakness and bilateral upper extremity weakness, she mentioned she pain in her knees which was thought to possibly be contributing to the weakness.
Objective Data
-
Labs:
Laboratory Results
12/11/23 12/12/23
21:19 06:12
WBC 6.9
Hgb 11.9 L
Hct 35.6 L
Plt Count 212
PT 28.4 H
INR 2.68
Sodium 138
Potassium 3.7 4.0
Chloride 107
Carbon Dioxide 25
BUN 17
Creatinine 0.7
Glucose 106 H
Calcium 9.0
Total Bilirubin 0.3
AST 56 H
ALT 72 H
Alkaline Phosphatase 80
Vital Signs:
Vital Signs
Temp Pulse Resp BP Pulse Ox
97.9 F 49 16 150/60 97
12/12/23 07:10 12/12/23 08:53 12/12/23 07:10 12/12/23 08:53 12/12/23 07:10
I&O
12/11/23 12/12/23 12/13/23
06:59 06:59 06:59
Intake Total 240 / 240
Balance 240 / 240
--- NOTE | 2023-12-12 10:03 | CON.GI ---
Addendum entered and electronically signed by Jacob Mckeon MD 12/12/23 11:46:
I saw and examined the patient.
The CLEARANCE DIVER's note was reviewed and I agree with the note.
Problem list:
-Change of bowel habits/abdominal discomfort-possible differential-colitis versus post diverticulitis versus IBS etc
(Abnormal CT findings showing concern for possible inflammatory small bowel disease, mild non-distention of the rectosigmoid area). Colonoscopy 2020-colon polyp +/diverticulosis. No colitis noted
--Recent diverticulitis August 2023, first episode
- history of pancreatic cysts, last MRI in April 2023 stable
-History of GAVE
-History of severe status post aortic valve replacement on Coumadin. 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
plan
Discussed benefits and risk of colonoscopy. Patient verbalized understanding and is agreeable for the procedure. Will tentatively plan colonoscopy for next week based on INR (preferably <1.5 )
Will discuss with medical team/cardiology about holding Coumadin with heparin bridge
If diarrhea persist will recommend stool studies
Lactose-free low-fat diet
Continue PPI
Will follow
Addendum entered and electronically signed by Imelda Howell NP 12/12/23 11:23:
Weakness being work-up by primary team. TT sent to Dr. Mcmullen re: GI recommendations.
Original Note:
Consultation
-
Date/Time Consultation Requested: 12/12/23 @ 00:29
Date/Time Consultation Performed: 12/12/23 @ 10:00
Requesting Provider: RACHEAL Delgadillo
Performing Provider: RACHEAL Metcalf; Dr. Mckeon
Reason for Consultation: Rectosigmoid thickening concern for mass, ongoing diarrhea since August
Medical History
Chief Complaint / HPI
Chief Complaint: Ongoing diarrhea, generalized weakness, chronic headaches, right-sided rib
History of Present Illness:
The patient is a 78-year-old female with a past medical history significant for paroxysmal atrial fibrillation on Coumadin, history of severe aortic stenosis status post [facility] aortic valve replacement in 2009, hypertension,
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
anemia, overactive bladder, prior cholecystectomy, who presents to the emergency room with a multitude of complaints including diarrhea, generalized weakness, chronic headaches, whom we are being asked to evaluate for in regards to abnormal CT
findings with diarrhea. Upon review of prior records, she is known to Dr. Ward outpatient, following with him secondary to iron deficiency anemia and known pancreatic cyst. Noted that she does have a history of GAVE and did have GI bleeding
several years ago which was treated with APC. She does follow with hematology and is getting intermittent iron infusions. She was placed on PPI twice daily, with continued observation of her blood counts. with no obvious signs of GI bleeding. In
regards to her known pancreatic cyst she had prior EUS as noted above, with MRI imaging this past April which did not show any alarming features or changes with plans to repeat her MRI next year. Of note, she did have CT imaging in August
for left lower quadrant pain which did show moderate acute distal sigmoid colon diverticulitis without evidence of abscess or perforation. She was placed on antibiotics by her PCP and did improve clinically. She did have imaging again on 12/07 due
to recurrent abdominal pain which did not show any evidence of diverticulitis, but did show a focal area of non-distention of the rectosigmoid junction which it was recommended for direct visualization. Today she reports having acute onset of
weakness as of yesterday. She notes that she could not walk which is not baseline for her as she is normally independent. In addition in regards to her weakness, since having diverticulitis in August she has had ongoing change of bowel habits.
She notes that her bowels are often soft and a pudding consistency and at other times within described as 'wormlike.' She denies any obvious signs of bleeding such as melena or hematochezia, but does continue to be iron deficient and is following
with hematology outpatient for IV iron infusions intermittently. She does admit to some crampiness in her abdomen primarily in the lower abdomen but no overt abdominal pain. She does admit to urgency with bowel movements but denies incontinence.
She denies any unintentional weight loss and notes that she is actively trying to lose weight with changes in her diet. She notes she has been eating more leafy green vegetables. She does admit to some mild nausea but denies any vomiting. She is
on chronic PPI. She otherwise denies any fevers, chest pain, shortness of breath, dysphagia, odynophagia, constipation, diarrhea, or swelling of the lower extremities. Prior EGD and colonoscopy as noted below. She denies use of NSAIDs or alcohol.
She is on Coumadin which she takes chronically for history of aortic valve replacement and A-fib. She follows with Dr. Rasheed from cardiology outpatient. She denies any family history of IBD or colon cancers or disorders. On admission she
underwent repeat CT imaging of the abdomen and pelvis with IV and oral contrast which did show some question of inflammatory bowel disease in the terminal ileum versus peristalsis along with persistent mild non-distention of the rectosigmoid region
as seen on prior CT, along with cystic pancreatic masses and a stable left adrenal mass. Also findings of diverticulosis without diverticulitis. CT of the head was done also which showed no acute intracranial abnormalities. Routine labs on
admission showed no overtly concerning findings, but mild abnormalities include BUN of 23, glucose 122, AST 56, ALT 72, total protein 6.1, and hemoglobin 11.9. She was observed off antibiotics, placed on a regular diabetic diet, and admitted for
further evaluation by GI.
Past Medical History
Past Medical History: Arrhythmias (Paroxysmal atrial fibrillation on Coumadin), CHF, CVA (Chronic hemorrhagic lacunar infarct), GERD, HTN, Hypercholesterolemia, NIDDM, Valvular Disease (History of severe aortic stenosis status post [facility] aortic
valve replacement in 2009) and Other (Pancreatic cyst status post EUS in 2019, diverticulosis-diverticulitis, fatty liver disease, history of GAVE with GI bleeding status post APC in July 2022, chronic migraine,adenomatous colon polyps, iron
deficiency anemia, overactive bladder, chronic back pain, ischemic optic neuropathy, obesity)
Past Surgical History: Cardiac ([facility] aortic valve replacement), Cholecystectomy, Gynecological (Hysterectomy), Orthopedic (Bilateral total knee arthroplasty, cervical spine surgery with discectomy and foraminotomy, left femur fracture with samantha
placement and removal, right carpal tunnel release), Tonsilectomy and Other (Cataract extraction, ureteral stent placement and extraction)
Social History
Tobacco: Non-Smoker
Alcohol: None
Drug: None
Personal:
Living: With Family
Family History
Family History: Reviewed & Not Pertinent
Allergies / Home Medications
Allergy/AdvReac Type Severity Reaction Status Date / Time
rizatriptan Allergy Foggy/Scared Verified 12/11/23 19:29
feeling
sumatriptan Allergy Foggy/Scared Verified 12/11/23 19:29
feeling
topiramate Allergy Foggy/Scared Verified 12/11/23 19:29
feeling
valproic acid Allergy Foggy/Scared Verified 12/11/23 19:29
feeling
�Medication �Instructions �Recorded
omeprazole 40 mg capsule,delayed 40 mg PO DAILY Gastrointestinal 06/24/19
release issue
riboflavin (vitamin B2) 400 mg 400 mg PO DAILY Supplement 02/18/22
tablet
warfarin 5 mg tablet 2.5 mg PO SUFRSA Blood clot 07/02/22
prevention/tx
furosemide 20 mg tablet 20 mg PO DAILY Fluid 11/25/22
Retention/Swelling
potassium chloride 20 mEq 20 meq PO DAILY Electrolyte 11/25/22
tablet,extended release Repletion
rosuvastatin 20 mg tablet 20 mg PO DAILY #90 tabs 12/24/22
amoxicillin 875 mg-potassium 1 tab PO Q12H 12/11/23
clavulanate 125 mg tablet
dorzolamide 22.3 mg-timolol 6.8 1 drp BOTH EYES BID 12/11/23
mg/mL eye drops
insulin glargine 100 unit/mL (3 6 unit SC DAILY 12/11/23
mL) subcutaneous pen (Lantus
Solostar U-100 Insulin)
latanoprost 0.005 % eye drops 1 drp BOTH EYES HS 12/11/23
losartan 50 mg tablet 50 mg PO BID 12/11/23
magnesium oxide 500 mg PO TID 12/11/23
vitamins A,C,Q-mbdn-haadfc 2,148 1 tab PO DAILY 12/11/23
mcg-113 mg-45 mg-17.4 mg tablet
(PreserVision AREDS)
Review of Systems
-
All other systems: A 12 pt ROS was Negative except as stated above in HPI
Vital Signs
Temp Pulse Resp BP Pulse Ox
97.9 F 49 16 150/60 97
12/12/23 07:10 12/12/23 08:53 12/12/23 07:10 12/12/23 08:53 12/12/23 07:10
Physical Exam
Exam
General: Well Developed, Well Nourished and No Apparent Distress
HEENT: Normocephalic, Anicteric and Atraumatic
Respiratory: Clear
Cardiac: S1/S2 and Regular Rhythm
Breast: Deferred by me
GI: Soft, Non Distended, Normal Bowel Sounds and Tender (Mildly tender in the right lower quadrant upon palpation)
Rectal: Deferred by Provider
Musculoskeletal: No Edema
Skin: Warm and Dry
Neuro: Awake, Alert and Oriented
Psych: Calm
Results
WBC 6.9 10^3/uL (4.8-10.8) 12/12/23 06:12
Hgb 11.9 g/dL (12.0-16.0) L 12/12/23 06:12
Hct 35.6 % (37.0-47.0) L 12/12/23 06:12
MCV 85.0 fL (81.0-99.0) 12/12/23 06:12
Plt Count 212 10^3/uL (130-400) 12/12/23 06:12
Absolute Neuts (auto) 3.8 10^3/uL (1.4-6.5) 12/12/23 06:12
PT 28.4 Sec (11.4-14.6) H 12/12/23 06:12
INR 2.68 12/12/23 06:12
Sodium 138 mmol/L (135-145) 12/12/23 06:12
Potassium 4.0 mmol/L (3.5-5.1) 12/12/23 06:12
Chloride 107 mmol/L (98-107) 12/12/23 06:12
Carbon Dioxide 25 mmol/L (22-30) 12/12/23 06:12
BUN 17 mg/dl (7-17) 12/12/23 06:12
Creatinine 0.7 mg/dL (0.6-1.0) 12/12/23 06:12
Calcium 9.0 mg/dl (8.4-10.2) 12/12/23 06:12
Total Bilirubin 0.3 mg/dl (0.2-1.3) 12/12/23 06:12
AST 56 U/L (14-36) H 12/12/23 06:12
ALT 72 U/L (0-35) H 12/12/23 06:12
Alkaline Phosphatase 80 U/L (38-126) 12/12/23 06:12
Diagnostic Image Results:
12/11/23 CT Head: IMPRESSION: No acute intracranial abnormality noted. Mild atrophy. Stable
12/11/23 CT A/P w/Iv and oral contrast: IMPRESSION: 'Possible inflammatory bowel disease of the terminal ileum such as Crohn's disease. Peristalsis cannot be excluded. New. Mild. Left adrenal mass. Persistent mild nondistention of the rectosigmoid
region. A mass cannot be excluded. Direct visualization recommended. Cystic pancreatic masses. These have been previously evaluated by MRI which showed only a mass in pancreatic head and no signs of malignancy. Repeat nonurgent MRI examination
recommended to exclude pancreatic body masses. Stable left adrenal mass shown to be a benign adenoma by MRI examination. Diverticulosis. No evidence of acute diverticulitis.'
12/08/2023 CT A/P: IMPRESSION:
1. There is diverticulosis. No definite CT evidence for diverticulitis, the previous examination 08/07/2023 revealed significant sigmoid wall thickening and adjacent inflammatory stranding. This is not present on the current exam.
2. There is a focal area of nondistention at the rectosigmoid junction, direct visualization is recommended to exclude malignancy.
3. There is a small amount of free fluid in the pelvis with Hounsfield units consistent with simple fluid, nonspecific. This could be reactive or indicating very early mild diverticulitis, no abscess or discrete fluid collection. Consider
treatment for very mild diverticulitis, followed by direct visualization of the rectosigmoid region.
4. The remainder of the exam is not significantly changed. Multiple incidental findings have been followed with abdomen MRI, continued annual screening is recommended with abdomen MRI.
Prior GI Procedures:
EGD: 07/04/2022, Dr. Kerns: Small hiatal hernia. Blebs found in the esophagus. Gastric antral vascular ectasia with bleeding. Treated with argon plasma coagulation (APC) Normal examined duodenum. No specimens collected.
Colonoscopy: 04/04/2021, Dr. Akbar: One 8 mm polyp in the ascending colon, removed using injection-lift and a hot snare. Resected and retrieved. Normal mucosa in the entire examined colon. Biopsied. Diverticulosis in the sigmoid colon. Non-bleeding
internal hemorrhoids. Path showing sessile serrated adenomatous polyp with normal random biopsies of the colon.
01/27/2018, Dr. Cleary: The examined portion of the ileum was normal. One 4 mm polyp at the hepatic flexure, removed with a jumbo cold forceps. Resected and retrieved. One 6 mm polyp at the ileocecal valve, removed with a cold snare. Resected
and retrieved. One 8 mm polyp in the proximal transverse colon, removed with a cold snare. Resected and retrieved. One 4 mm polyp at 35 cm proximal to the anus, removed with a jumbo cold forceps. Resected and retrieved. Two 4 to 5 mm polyps at 25
cm proximal to the anus, removed with a cold snare. Resected and retrieved. Diverticulosis in the descending colon. Non-bleeding external hemorrhoids. Three biopsies were obtained in the descending colon and in the ascending colon. Pathology
showing 3 adenomatous polyps, otherwise benign polyps with random biopsies negative for colitis.
Assessment / Plan
-
The patient is a 78-year-old female with a past medical history significant for paroxysmal atrial fibrillation on Coumadin, history of severe aortic stenosis status post [facility] aortic valve replacement in 2009, hypertension,
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
hyperlipidemia, hypertension, iron deficiency anemia, overactive bladder, prior cholecystectomy, who presents to the emergency room with a multitude of complaints including diarrhea, generalized weakness, chronic headaches, whom we are being asked
to evaluate for in regards to abnormal CT findings with diarrhea. The patient notes a change of bowel habits after having diverticulitis in August, with ongoing softer/thin stools with intermittent abdominal cramping. Also with some complaints of
weakness in which she was unable to walk prior to presentation with bilateral knee pain. CT imaging on admission showed findings concerning for possible inflammatory disease of the small bowel at the terminal ileum with persistent mild
non-distention of the rectosigmoid region, along with cystic pancreatic masses that were previously seen on MRI, and a stable left adrenal mass of benign etiology. There was no evidence for diverticulitis therefore antibiotics were deferred. CT of
the head was also negative. She is not having any diarrhea therefore it is unlikely to have some kind of infectious stool etiology although gastroenteritis is possible. Last colonoscopy was done in 2020 with known history of sessile serrated
adenomas and several adenomatous polyps in 2018. She also does have chronic iron deficiency anemia and gets intermittent iron infusions. Her hemoglobin appears stable here. There were no signs of obvious infection such as fevers or leukocytosis.
Problem list:
-Change of bowel habits
-Abnormal CT findings showing concern for possible inflammatory small bowel disease, mild non-distention of the rectosigmoid area (and other non-GI findings as above)
-Known history of pancreatic cysts, last MRI in April 2023 stable
-History of severe status post aortic valve replacement on Coumadin
-Mildly elevated AST/ALT
-Recent diverticulitis August 2023, first episode
-Chronic anticoagulation as above
-History of GAVE
-History of adenomatous colon polyps
Other part medical history:
-Hypertension
-CVA
-Hyperlipidemia
-Fatty liver disease
-History of atrial fibrillation
-History of ocular stroke
-Overactive bladder
-History of CCY
-GERD
Recommendations:
-Etiology of abdominal pain with change of bowel habits unclear, possibly related to diverticular disease given recent episode of diverticulitis at the time of onset v inflammatory bowel disease v other. Cannot rule out stricture or mass given CT
findings.
--- She is not having any diarrhea but her stool consistency has changed to softer/pudding-like. No signs of obstruction on CT imaging, but concern for possible inflammatory disease in the small bowel along with persistent mild non-distention of
the rectosigmoid colon which is nonspecific.
-Discussed with the patient at the bedside that she ultimately will need a colonoscopy, which ideally should be done inpatient given her reported history of ocular stroke off her blood thinner and with a mechanical aortic valve. Discussed direct
visualization would be best to evaluate for change of bowel habits and CT findings. The patient is agreeable to colonoscopy. Discussed with with Dr. Mckeon, timing to be determined pending her INR and workup of her weakness.
-Trend INR daily
-Would advise initiating heparin drip and holding further Coumadin dosage in hope for plans of inpatient colonoscopy sometime this. To consider cardiology evaluation for cardiac optimization prior to procedure given her history
(She has noted Dr. Rasheed)
-Will send fecal calprotectin, ESR, and CRP to evaluate for signs of inflammation
-Can continue with diet for now, but would recommend low residue low lactose given her GI symptoms
-If overt diarrhea would send infectious stool studies but currently without signs of infection
-Continue PPI daily with history of bleeding GAVE
-Will follow
-
-
Thank you for consultation and allowing me to participate in the patient's care. Please call the merchandising execution associate GI physician during the after hours with any questions or concerns.
--- NOTE | 2023-12-12 12:06 | CM ---
Reviewed the chart notes and spoke with the patient at the bedside. [facility]AE[facility] letter provided and explained. The patient had no questions with regards to the letter.
The patient resides with her spouse in two story home with no steps to enter. The patient has in the home a cane, rolling walker, and a recliner lift chair. The patient confirmed her pharmacy of choice is the [facility].
continues to be available to patient/family and is monitoring medical plan for needs at discharge.
Plan: Discharge plans will depend on the patient's progress.
[2023-12-12 12:26] LABS: Glucose - Point of Care 197 mg/dl (70-99)
[2023-12-12 12:40] LABS: Erythrocyte Sed Rate 29 mm/hour (0-20)
[2023-12-12] MEDS: NOVOLOG FLEXPEN-LOW RESISTANCE 1 UNITS SC (13:32)
[2023-12-12 16:53] LABS: Glucose - Point of Care 109 mg/dl (70-99)
--- NOTE | 2023-12-12 17:10 | CON.CAR ---
Consultation
Consultation Request
Date/Time Consultation Requested: 12/12/23, 2pm
Date/Time Consultation Performed: 12/12/23, 3pm
Requesting Provider: Kemi
Performing Provider: Serene
Reason for Consultation: warfarin management
Medical History
-
Chief Complaint: diarrhea
History of Present Illness:
78 yo female with PMH of mechanical AVR (2009), paroxysmal A fib, on warfarin, prior retinal artery occlusion, chronic HFPEF, HTN is admitted for evaluation for diarrhea. She has no cardiac complaints. She is admitted because she will need heparin
bridge while INR sub-therapeutic.
Past Medical History
Past Medical History: CHF (chronic HFPEF), HTN, Hypercholesterolemia and Valvular Disease
Past Surgical History: Cardiac (mechanical AVR 2009)
Social History
Tobacco: Non-Smoker
Family History
Family History: Early CAD (none)
Allergies / Home Medications
Allergy/AdvReac Type Severity Reaction Status Date / Time
rizatriptan Allergy Foggy/Scared Verified 12/11/23 19:29
feeling
sumatriptan Allergy Foggy/Scared Verified 12/11/23 19:29
feeling
topiramate Allergy Foggy/Scared Verified 12/11/23 19:29
feeling
valproic acid Allergy Foggy/Scared Verified 12/11/23 19:29
feeling
�Medication �Instructions �Recorded �Confirmed �Type
omeprazole 40 mg capsule,delayed 40 mg PO DAILY Gastrointestinal 06/24/19 12/11/23 History
release issue
riboflavin (vitamin B2) 400 mg 400 mg PO DAILY Supplement 02/18/22 12/11/23 History
tablet
warfarin 5 mg tablet 2.5 mg PO SUFRSA Blood clot 07/02/22 12/11/23 History
prevention/tx
furosemide 20 mg tablet 20 mg PO DAILY Fluid 11/25/22 12/11/23 History
Retention/Swelling
potassium chloride 20 mEq 20 meq PO DAILY Electrolyte 11/25/22 12/11/23 History
tablet,extended release Repletion
rosuvastatin 20 mg tablet 20 mg PO DAILY #90 tabs 12/24/22 12/11/23 Rx
amoxicillin 875 mg-potassium 1 tab PO Q12H 12/11/23 12/11/23 History
clavulanate 125 mg tablet
dorzolamide 22.3 mg-timolol 6.8 1 drp BOTH EYES BID 12/11/23 12/11/23 History
mg/mL eye drops
insulin glargine 100 unit/mL (3 6 unit SC DAILY 12/11/23 12/11/23 History
mL) subcutaneous pen (Lantus
Solostar U-100 Insulin)
latanoprost 0.005 % eye drops 1 drp BOTH EYES HS 12/11/23 12/11/23 History
losartan 50 mg tablet 50 mg PO BID 12/11/23 12/11/23 History
magnesium oxide 500 mg PO TID 12/11/23 12/11/23 History
vitamins A,C,S-giox-tqyyqn 2,148 1 tab PO DAILY 12/11/23 12/11/23 History
mcg-113 mg-45 mg-17.4 mg tablet
(PreserVision AREDS)
Review of Systems
-
All other systems: Negative unless noted
Abdomen/GI: Diarrhea
Physical Exam
Vital Signs
Temp Pulse Resp BP Pulse Ox
98.0 F 49 16 135/61 99
12/12/23 15:31 12/12/23 15:31 12/12/23 15:31 12/12/23 15:31 12/12/23 15:31
Lab Results
12/12/23 06:12
12/12/23 06:12
Physical Exam
General: Well Developed and Well Nourished
HEENT: Normocephalic and Anicteric
Respiratory: Non Labored Respirations
Cardiac: S1/S2 (normal), Regular Rhythm, Murmur (none), Peripheral Edema (none) and Other (+mechanical valve click)
GI: Soft, Non Tender and Non Distended
Musculoskeletal: No Clubbing, No Cyanosis and No Edema
Skin: Warm and Dry
Neuro: AO x 3
Psych: Calm
Impression / Plan
-
78 yo female with PMH of mechanical AVR (2009), paroxysmal A fib, on warfarin, prior retinal artery occlusion, chronic HFPEF, HTN is admitted for evaluation for diarrhea. She has no cardiac complaints. She is admitted because she will need heparin
bridge while INR sub-therapeutic.
# Mechanical AVR
-also with paroxysmal A fib and embolic event
-at home takes coumadin and ASA 81mg, with INR goal 2.5-3.5
-high risk for holding coumadin given paroxysmal A fib and embolic event
-holding coumadin for colonoscopy, and will need heparin bridge once INR sub-therapeutic
-requires close monitoring of PTT
# Chronic HFPEF
-appears euvolemic: cont PO lasix
# Paroxysmal A fib
-stable in sinus allison with LBBB; not on AV ryan agent due to bradycardia
-plan for OAC as above
# HTN
-BP is at goal: continue losartan
Data Reviewed
-
EKG: Tracing Personally Visualized and interpreted (SB 54, LBBB)
Medical Tests (Nuc Med, Echo etc): Report Reviewed by me (echo 10/05/23: EF 55-60%, mild/mod MR, [facility] AVR (, trace AR))
Labs: Labs Reviewed by me
[2023-12-12] MEDS: LOW STRENGTH ASPIRIN 81 MG PO (17:30)
[2023-12-12] MEDS: XALATAN OPHTHALMIC SOLUTION 1 DROP BOTH EYES (21:57)
[2023-12-12 22:02] LABS: Glucose - Point of Care 116 mg/dl (70-99)
[2023-12-13] VITALS (7 sets, daily range): BP systolic 114–142; BP diastolic 42–67; PULSE 48–55; BMI 29.6
[2023-12-13 07:17] LABS: Glucose - Point of Care 140 mg/dl (70-99)
[2023-12-13] MEDS: NOVOLOG FLEXPEN-LOW RESISTANCE SC (07:45)
[2023-12-13] MEDS: CRESTOR 20 MG PO (08:05)
[2023-12-13] MEDS: COSOPT EYE DROPS 1 DROP BOTH EYES ×2 (08:05→19:22)
[2023-12-13] MEDS: LOW STRENGTH ASPIRIN 81 MG PO (08:05)
[2023-12-13] MEDS: PROTONIX 40 MG PO (08:05)
[2023-12-13] MEDS: KCL 20 MEQ PO (08:05)
[2023-12-13] MEDS: LASIX 20 MG PO (08:07)
[2023-12-13] MEDS: COZAAR 50 MG PO ×2 (08:07→19:22)
[2023-12-13] MEDS: LANTUS 0.0599999999999999978 UNITS SC (08:08)
[2023-12-13 09:16] LABS: % Basophils 1.2 % (0-2); % Eosinophils 1.8 % (0-6); % Immature Granulocytes 0.4 % (0-0.5); % Lymphocytes 30.6 % (20.5-51.1); % Monocytes 10.9 % (1.7-9.3); % Neutrophils 55.1 % (42.2-75.2); Absolute Basophils 0.1 10^3/uL (0-0.2); Absolute Eosinophils 0.1 10^3/uL (0-0.7); Absolute Lymphocytes 1.7 10^3/uL (1.2-3.4); Absolute Monocytes 0.6 10^3/uL (0.1-0.6); Absolute Neutrophils 3.1 10^3/uL (1.4-6.5); Hematocrit 34.2 % (37.0-47.0); Hemoglobin 11.2 g/dL (12.0-16.0); Mean Corp Hgb Conc. 32.7 g/dL (33.0-37.0); Mean Corpuscular Hgb 28.3 pg (27.0-31.0); Mean Corpuscular Volume 86.4 fL (81.0-99.0); Mean Platelet Volume 10.2 fL (7.4-10.4); Nucleated Red Blood Cells % 0 %; Platelet Count 221 10^3/uL (130-400); Red Blood Cell Count 3.96 10^6/uL (4.20-5.40); Red Cell Dist. Width 13.8 % (11.5-14.5); White Blood Cell Count 5.6 10^3/uL (4.8-10.8)
[2023-12-13 09:36] LABS: INR 2.84; PT 29.7 Sec (11.4-14.6)
[2023-12-13 09:46] LABS: ALT (SGPT) 48 U/L (0-35); AST (SGOT) 35 U/L (14-36); Albumin 3.2 g/dl (3.5-5.0); Alkaline Phosphatase 71 U/L (38-126); Blood Urea Nitrogen 21 mg/dl (7-17); Calcium 8.9 mg/dl (8.4-10.2); Carbon Dioxide 24 mmol/L (22-30); Chloride 106 mmol/L (98-107); Estimated Creatinine Clearance 66 ml/min; Glucose 120 mg/dl (70-99); Magnesium 2.2 mg/dl (1.6-2.3); Sodium 138 mmol/L (135-145); Total Bilirubin 0.4 mg/dl (0.2-1.3); Total Protein 5.6 g/dl (6.3-8.2); eGFR > 60.00
--- NOTE | 2023-12-13 09:58 | W.PN.UPDATE ---
Update Note
Progress Note Update
INR this am is 2.84. Coumadin on hold since 12/12/2023. Start on heparin drip when INR is <2.5 as per cardiology. Timing of colonoscopy will be decided next week based on INR value in the following days.
[2023-12-13 11:22] LABS: TSH Reflex To Free T4 2.54 uIU/ml (0.47-4.68)
[2023-12-13 11:32] LABS: Glucose - Point of Care 176 mg/dl (70-99)
[2023-12-13 11:41] LABS: Vitamin B12 840 pg/ml (239-931)
[2023-12-13] MEDS: NOVOLOG FLEXPEN-LOW RESISTANCE 1 UNITS SC ×2 (12:18→18:21)
[2023-12-13 13:24] LABS: Creatine Phosphokinase 49 U/L (30-135)
--- NOTE | 2023-12-13 14:17 | W.PN.HOSP.TC ---
Today's Communication/Plan
-
Continue monitoring INR; once INR is subtherapeutic (less than 2.5) will need Heparin Drip Bridge
Colonoscopy anticipated once INR is sufficiently low
Assessment / Plan
Assessment / Plan
Physical Exam
General: Not in acute distress
HEENT: Normocephalic
Respiratory: Clear to Auscultation Bilaterally
Cardiac: S1/S2, Bradycardia, Systolic murmur with known mechanical AVR
GI: Soft, Non Tender, Non Distended, Normal Bowel Sounds
Musculoskeletal: No Cyanosis, No Edema and Other (History of bilateral knee replacements no joint effusions no rashes)
Skin: Warm and Dry
Neuro: AAO x 3, Strength 5/5 in bilateral lower extremities, Sensation grossly intact bilaterally, Cranial Nerves Grossly Intact
Psych: Calm

CT abdomen pelvis with IV and oral contrast (as per radiologist's report):
1. Possible inflammatory bowel disease of the terminal ileum such as Crohn's. Peristalsis cannot be excluded�new mild left adrenal mass
2. Persistent mild nondistention of the rectosigmoid region mass cannot be excluded
3. Cystic pancreatic masses previously evaluated on MRI showed only a mass in pancreatic head no malignancy
4. Stable left adrenal mass noted to be benign adenoma by MRI
5. Diverticulosis no diverticulitis
CT head (as per radiologist's report): No acute intracranial normality. Mild atrophy stable

Assessment/Plan
78-year-old with multiple medical problems including history of diverticulitis, hypertension, hyperlipidemia, chronic paretic cyst, diabetes and atrial fibrillation as well chronic osteoarthritis status post bilateral knee replacement, degenerative
disc disease of the lumbosacral spine, history of duodenal bleeding gastric ectasia presented to the emergency department with the immediate of complaints but mostly diarrhea, weakness, low back pain with ambulatory difficulties. On admission, it
was reviewed -- the patient's diarrhea is likely from prior. He has chronic incontinence with pencil-like stool. She does not have watery diarrhea. She has no evidence of dehydration. She had been placed on Augmentin for abdominal cramps after
discussing with PMD few days ago. She had no fevers or chills, dysuria on admission. She had no signs or symptoms or urinary tract infection on admission. Urinary frequency and incontinence unchanged from prior. Patient shows no focal neurological
deficits on history.
#Ongoing diarrhea concern for inflammatory bowel disease/Rectosigmoid region mild distention cannot rule out mass
-Has been taking Augmentin for diverticulitis by PCP -- STOPPED it as no diverticulitis on CT
-Hold MagOx as that can cause diarrhea
-Monitor magnesium level
-Initial CT imaging could not rule out a mass
-Stool cultures, stool WBC, C. difficile if watery diarrhea
-GI consulted, recommendations appreciated: inpatient colonoscopy early next week -- per GI colonoscopy would be higher risk outpatient
-Hold Coumadin, monitor daily INR
-Heparin Bridge to start once INR is less than 2.5
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
-Consulted cardiology as patient wants cardiology on board
-PT/OT/case management consult
#Generalized Weakness - IMPROVING
#Lightheadedness
-Recheck CBC, CMP, lactic acid, troponin, ekg and CT Head on December 13, 2023 due to lightheadedness --> these were negative/unremarkable.
-Orthostatic vital signs on December 13, 2023 negative.
-Possibly from diarrhea vs. possible mass vs. possible inflammatory process
-Reported chronic back pain but no saddle anesthesia, bowel incontinence, has chronic (but not new urinary incontinence) and on neuro exam is able to demonstrate good strength in the bilateral upper and lower extremities
-TSH and Vitamin B12 within normal limits
-PT/OT
#Chronic osteoarthritis
#Chronic spinal disease
#Acute on chronic lumbar back pain right side/rib pain due to musculoskeletal strain
#History of lumbar epidural/lumbar rhizotomy left-sided
-Patient follows with pain management Dr. Segura in [place] is due for right-sided epidural
-Lidoderm patch to right rib
-Pain control
-PT/OT
#Acute on chronic daily headaches
#Retinal migraines
#Ischemic optic neuropathy right eye
-Continue Tylenol 1000 mg a.m. and as needed twice daily
-Continue latanoprost 1 drop both eyes at bedtime
-Continue Vitamin B2 400 mg daily
#Acute on chronic bilateral knee pain with ambulatory dysfunction
#History of bilateral knee replacements
-Follows with Dr. Dang
-Continue Tylenol in a.m. and twice daily as needed follow-up with pain management
-PT/OT/case management eval
#Iron deficiency
-Patient reports has appointment end of December with Dr. Cortez for iron infusion
#HTN�benign
-Continue losartan 50 mg twice daily
#Hypomagnesemia hx
-Magnesium level okay
-Monitor magnesium level give diarrhea
-Hold Mag-Ox 500 mg 3 times daily due to persistent diarrhea
#Chronic urinary incontinence
-Denies dysuria or suprapubic tenderness
#Paroxysmal A-fib on Coumadin
#Hx LBBB
-EKG: Sinus bradycardia with PVCs 54 bpm, LBBB has replaced incomplete RBBB QTc 477 MS
-2D echo 10/05/2023: EF 55 to 60%, no wall normality, mild to moderate MR, mechanical aortic valve with peak mean gradient 32/17 mmHg, trace aortic regurgitation. MR has progressed from mild to moderate
-Follows with [facility]
-INR 2.79, coming down
-Holding Coumadin for now
-Monitor INR
-Heparin Bridge once INR is subtherapeutic (INR less than 2.5)
# Aortic stenosis status post mechanical AVR 2009
-Patient on Coumadin
-Hold Coumadin
-Heparin Bridge once INR goes down to less than 2.5
-Follow INR
#Hx transient heart block/SSS
#Hx CVA
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
#Chronic diastolic heart failure
I/O, daily weights
Hold Lasix 20 mg daily given diarrhea
#DM2
Accu-Cheks with SSI, check HgbA1c
-Lantus 6 units subcu daily
#HLD
-Continue Crestor 20 mg daily
#GERD
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
-Continue omeprazole 40 mg daily
#Obesity due to excess calorie consumption
Weight loss recommended low-fat diet
Other PMH:
recurrent melena
diverticulosis with colonic polyps
fatty liver
vertigo
psoriasis
COVID 19 Dec 2021
DVT prophylaxis -- SCDs. Hold Coumadin with anticipated Heparin Bridging soon
Full code
Anticipated Discharge: > 48 hours
Subjective/Interval History
-
Date of Service: December 13, 2023
Patient was seen and examined. Earlier in the day she reported she felt better and stronger, but later in the day she reported more fatigue and lightheadedness. Orthostatic vital signs were ordered and negative.
Objective Data
-
Labs:
Laboratory Results
12/13/23 12/13/23
07:11 14:15
WBC 5.6 Pending
Hgb 11.2 L Pending
Hct 34.2 L Pending
Plt Count 221 Pending
PT 29.7 H
INR 2.84
Sodium 138 Pending
Potassium 4.0 Pending
Chloride 106 Pending
Carbon Dioxide 24 Pending
BUN 21 H Pending
Creatinine 0.7 Pending
Glucose 120 H Pending
Calcium 8.9 Pending
Total Bilirubin 0.4 Pending
AST 35 Pending
ALT 48 H Pending
Alkaline Phosphatase 71 Pending
Vital Signs:
Vital Signs
Temp Pulse Resp BP Pulse Ox
97.8 F 54 16 114/46 97
12/13/23 11:00 12/13/23 11:00 12/13/23 11:00 12/13/23 11:00 12/13/23 11:00
I&O
12/12/23 12/13/23 12/14/23
06:59 06:59 06:59
Intake Total 240 / 240 960 / 960
Balance 240 / 240 960 / 960
[2023-12-13 15:09] LABS: % Eosinophils 2.1 % (0-6); % Immature Granulocytes 0.3 % (0-0.5); % Lymphocytes 30.1 % (20.5-51.1); % Monocytes 9.1 % (1.7-9.3); % Neutrophils 57.4 % (42.2-75.2); Absolute Basophils 0.1 10^3/uL (0-0.2); Absolute Eosinophils 0.1 10^3/uL (0-0.7); Absolute Monocytes 0.6 10^3/uL (0.1-0.6); Absolute Neutrophils 3.8 10^3/uL (1.4-6.5); Hematocrit 34.8 % (37.0-47.0); Hemoglobin 11.7 g/dL (12.0-16.0); Mean Corp Hgb Conc. 33.6 g/dL (33.0-37.0); Mean Corpuscular Hgb 28.5 pg (27.0-31.0); Mean Corpuscular Volume 84.9 fL (81.0-99.0); Mean Platelet Volume 9.9 fL (7.4-10.4); Nucleated Red Blood Cells % 0 %; Platelet Count 229 10^3/uL (130-400); Red Cell Dist. Width 13.7 % (11.5-14.5); White Blood Cell Count 6.7 10^3/uL (4.8-10.8)
[2023-12-13 15:23] LABS: Lactic Acid 1.2 mmol/L (0.7-2.0)
[2023-12-13 15:24] LABS: ALT (SGPT) 47 U/L (0-35); AST (SGOT) 39 U/L (14-36); Albumin 3.4 g/dl (3.5-5.0); Alkaline Phosphatase 74 U/L (38-126); Blood Urea Nitrogen 24 mg/dl (7-17); Calcium 9.2 mg/dl (8.4-10.2); Carbon Dioxide 24 mmol/L (22-30); Chloride 106 mmol/L (98-107); Estimated Creatinine Clearance 57 ml/min; Glucose 173 mg/dl (70-99); Potassium 4.1 mmol/L (3.5-5.1); Sodium 138 mmol/L (135-145); Total Bilirubin 0.4 mg/dl (0.2-1.3); Total Protein 5.9 g/dl (6.3-8.2); eGFR > 60.00
[2023-12-13 15:34] LABS: NT-proBNP 263 pg/ml
[2023-12-13 15:50] LABS: Glucose - Point of Care 172 mg/dl (70-99)
--- NOTE | 2023-12-13 15:56 | W.PN.CD ---
Today's Communication / Plan
-
trend tele
trend INR
Impression / Plan
-
78 yo female with PMH of mechanical AVR (2009), paroxysmal A fib, on warfarin, prior retinal artery occlusion, chronic HFPEF, HTN is admitted for evaluation for diarrhea. She has no cardiac complaints. She is admitted because she will need heparin
bridge while INR sub-therapeutic.
# Mechanical AVR
-also with paroxysmal A fib and embolic event
-at home takes coumadin and ASA 81mg, with INR goal 2.5-3.5
-high risk for holding coumadin given paroxysmal A fib and embolic event
-holding coumadin for colonoscopy, and will need heparin bridge once INR sub-therapeutic
-INR is 2.84 today
# Sinus allison, LBBB
-HR 40s-60s on monitor, no advanced heart block
-she reports dizziness/weakness: I told her I did not think it was caused by HR 40s, but will continue to monitor while she is here
# Chronic HFPEF
-appears euvolemic: cont PO lasix
# Paroxysmal A fib
-stable in sinus allison with LBBB; not on AV ryan agent due to bradycardia
-plan for OAC as above
# HTN
-BP is at goal: continue losartan
Physical Exam
Vital Signs/Labs
Vital Signs
Temp Pulse Resp BP Pulse Ox
97.8 F 54 16 114/46 97
12/13/23 11:00 12/13/23 11:00 12/13/23 11:00 12/13/23 11:00 12/13/23 11:00
12/12/23 12/13/23 12/14/23
06:59 06:59 06:59
Actual Weight 77.564 kg 75.841 kg
12/13/23 14:36
12/13/23 14:36
PT 29.7 Sec (11.4-14.6) H 12/13/23 07:11
INR 2.84 12/13/23 07:11
Magnesium 2.2 mg/dl (1.6-2.3) 12/13/23 07:11
12/13/23
14:36
[id number]-M-[id number] Pept 263
Physical Exam
Constitutional: No acute distress and Comfortable
EENT: Moist mucous membranes
Cardiovascular: Rhythm & rate is regular, Pedal edema is absent, JVD pressure is normal and Other (+mechanical valve click)
Respiratory: Respiratory effort normal and Lungs clear to auscul.
GI: Soft, Distention absent and Flat
Neuro/Psych: AO x 3
Data Reviewed
-
Date of Service: December 13, 2023
EKG: Other (SR/SB 40s-60s)
Labs: Labs Reviewed by me
[2023-12-13 16:23] LABS: Troponin I < 0.012 ng/ml
[2023-12-13 19:02] LABS: Magnesium 2.1 mg/dl (1.6-2.3)
[2023-12-13] MEDS: XALATAN OPHTHALMIC SOLUTION 1 DROP BOTH EYES (20:45)
[2023-12-13 21:04] LABS: Troponin I < 0.012 ng/ml
[2023-12-13 21:38] LABS: Glucose - Point of Care 183 mg/dl (70-99)
[2023-12-14] VITALS (8 sets, daily range): BP systolic 114–161; BP diastolic 52–79; PULSE 44; O2SAT 97; BMI 29.4
[2023-12-14 02:33] LABS: Troponin I < 0.012 ng/ml
[2023-12-14 07:31] LABS: Glucose - Point of Care 138 mg/dl (70-99)
[2023-12-14] MEDS: NOVOLOG FLEXPEN-LOW RESISTANCE SC ×2 (07:39→16:44)
--- NOTE | 2023-12-14 07:59 | W.PN.HOSP.TC ---
Today's Communication/Plan
-
see bold
Assessment / Plan
Assessment / Plan
78-year-old with multiple medical problems including history of diverticulitis, hypertension, hyperlipidemia, chronic paretic cyst, diabetes and atrial fibrillation as well chronic osteoarthritis status post bilateral knee replacement, degenerative
disc disease of the lumbosacral spine, history of duodenal bleeding gastric ectasia presented to the emergency department with the immediate of complaints but mostly diarrhea, weakness, low back pain with ambulatory difficulties. On admission, it
was reviewed -- the patient's diarrhea is likely from prior. He has chronic incontinence with pencil-like stool. She does not have watery diarrhea. She has no evidence of dehydration. She had been placed on Augmentin for abdominal cramps after
discussing with PMD few days ago. She had no fevers or chills, dysuria on admission. She had no signs or symptoms or urinary tract infection on admission. Urinary frequency and incontinence unchanged from prior. Patient shows no focal neurological
deficits on history.
Gen: NAD, AAOx3.
Eyes: EOMI, PERRLA, no scleral icterus.
Neck: supple.
CV: allison, +S1/S2, no m/r/g.
Resp: CTAB, no rales, wheezes, or rhonchi.
Abd: +BS, soft, NT, ND
Skin: No rashes.
Neuro: CN 2-12 intact, non-focal.
Psych: Normal mood and affect.
CT A/P w/IV+PO:
1. Possible inflammatory bowel disease of the terminal ileum such as Crohn's. Peristalsis cannot be excluded�new mild left adrenal mass
2. Persistent mild nondistention of the rectosigmoid region mass cannot be excluded
3. Cystic pancreatic masses previously evaluated on MRI showed only a mass in pancreatic head no malignancy
4. Stable left adrenal mass noted to be benign adenoma by MRI
5. Diverticulosis no diverticulitis
CT head: No acute intracranial normality. Mild atrophy.
Ongoing diarrhea:
-concern for inflammatory bowel disease/Rectosigmoid region mild distention cannot rule out mass
-Had been taking Augmentin for diverticulitis by PCP (stopped as no diverticulitis on CT)
-Holding MgO as that can cause diarrhea
-C diff NEG, follow rest of stool studies
-GI following, for colonoscopy once INR down
-Hold Coumadin, monitor daily INR
-Heparin Bridge to start once INR is less than 2.5
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
Generalized Weakness:
-with lightheadedness
-ECG, CT brain, orthostatic VS on 12/13/23 all NEG
-PT/OT
PAF:
-on coumadin BLOCK SORTER which is on hold
-start heparin gtt as INR now <2.5 ( s/p mechanica AVR 2009)
-discussed with cardiology
Chronic osteoarthritis, spinal disease with acute on chronic lumbar back pain right side/rib pain due to musculoskeletal strain
-h/o lumbar epidural/lumbar rhizotomy left-sided
-Patient follows with pain management Dr. Segura in [place] is due for right-sided epidural
-Lidoderm patch to right rib
-Pain control
-PT/OT
Other problems:
Chronic daily headaches/Retinal migraines
Ischemic optic neuropathy right eye
Acute on chronic bilateral knee pain with ambulatory dysfunction, h/o bilateral knee replacements
Chronic Iron deficiency, pt reports has appointment end of December with Dr. Cortez for iron infusion
Essential HTN: cont Losartan
h/o Hypomagnesemia
Chronic urinary incontinence
h/o LBBB
h/o transient heart block/SSS
h/o CVA: cont ASA/statin
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
Chronic HFpEF: cont Lasix
DM2: a1c 6.4%, cont Lantus/SSI/accuchecks
HLD: cont statin
GERD: Cont PPI
Obesity due to excess calories:
FULL/SCDs
Total time spent on today's encounter was 50 minutes which included time spent in counseling the patient/family regarding diagnosis and treatment plan as listed above, goals of care, and symptom management. Case was discussed with nursing staff,
specialists, and care coordinators/case management. All labs and imaging personally reviewed by me. Remainder the time spent in detailed review of previous records, lab data, imaging, and other medical provider documentation.
Anticipated Discharge: 24 - 48 hours
Subjective/Interval History
-
Date of Service: December 14, 2023
Denies CP/SOB. No diarrhea, states she's becoming constipated.
Objective Data
-
Labs:
Laboratory Results
12/14/23
07:52
WBC Pending
Hgb Pending
Hct Pending
Plt Count Pending
PT Pending
INR Pending
Sodium Pending
Potassium Pending
Chloride Pending
Carbon Dioxide Pending
BUN Pending
Creatinine Pending
Glucose Pending
Calcium Pending
Total Bilirubin Pending
AST Pending
ALT Pending
Alkaline Phosphatase Pending
Vital Signs:
Vital Signs
Temp Pulse Resp BP Pulse Ox
97.9 F 43 16 114/52 98
12/14/23 03:33 12/14/23 03:33 12/14/23 03:33 12/14/23 03:33 12/14/23 03:33
I&O
12/13/23 12/14/23 12/15/23
06:59 06:59 06:59
Intake Total 960 / 960 480 / 480
Balance 960 / 960 480 / 480
[2023-12-14] MEDS: LANTUS 0.0599999999999999978 UNITS SC (08:10)
[2023-12-14] MEDS: LOW STRENGTH ASPIRIN 81 MG PO (08:10)
[2023-12-14] MEDS: CRESTOR 20 MG PO (08:10)
[2023-12-14] MEDS: LASIX 20 MG PO (08:10)
[2023-12-14] MEDS: PROTONIX 40 MG PO (08:10)
[2023-12-14] MEDS: KCL 20 MEQ PO (08:10)
[2023-12-14] MEDS: COSOPT EYE DROPS 1 DROP BOTH EYES ×2 (08:11→20:57)
[2023-12-14] MEDS: COZAAR 50 MG PO ×2 (08:11→20:55)
--- NOTE | 2023-12-14 08:15 | W.PN.CD ---
Addendum entered and electronically signed by Dayday Cast MD 12/14/23 09:46:
78 yo female with PMH of mechanical AVR, paroxysmal A fib, retinal artery occlusion, sinus bradycardia is being evaluated for diarrhea. She needs colonoscopy. She is admitted for heparin bridge given her high risk of thromboembolic event. Exam
with allison, regular rhythm, +mechanical valve click, no edema.
INR goal 2.5-3.5.
INR is 2.5 today with coumadin held. Start heparin drip.
Addendum entered and electronically signed by RACHEAL Berman 12/14/23 09:00:
INR 2.21- initiate heparin drip.
Original Note:
Today's Communication / Plan
-
AM labs pending including INR- will review when available. Will plan to start heparin drip when INR <2.5.
Continue to follow telemetry
Impression / Plan
-
78 yo female with PMH of mechanical AVR (2009), paroxysmal A fib, on warfarin, prior retinal artery occlusion, chronic HFPEF, HTN is admitted for evaluation for diarrhea. She has no cardiac complaints. She is admitted because she will need heparin
bridge while INR sub-therapeutic.
# Mechanical AVR
-also with paroxysmal A fib and embolic event
-at home takes coumadin and ASA 81mg, with INR goal 2.5-3.5
-high risk for holding coumadin given paroxysmal A fib and embolic event
-holding coumadin for colonoscopy, and will need heparin bridge once INR sub-therapeutic
-INR today pending- will review when available
# Sinus allison, LBBB
-HR 40s-60s on monitor, no advanced heart block
-she reports dizziness/weakness: Not likely from HR 40s, but will continue to monitor while she is here
# Chronic HFPEF
-appears euvolemic: cont PO lasix
# Paroxysmal A fib
-stable in sinus allison with LBBB; not on AV ryan agent due to bradycardia
-plan for AC as above
# HTN
-BP is at goal: continue losartan
Subjective:
Feeling less weak than when she came in
No SOB
still has dizzy feeling at times, usually in AM
Physical Exam
Vital Signs/Labs
Vital Signs
Temp Pulse Resp BP Pulse Ox
97.9 F 43 16 114/52 98
12/14/23 03:33 12/14/23 03:33 12/14/23 03:33 12/14/23 03:33 12/14/23 03:33
12/13/23 12/14/23 12/15/23
06:59 06:59 06:59
Actual Weight 75.841 kg 75.387 kg
PT 29.7 Sec (11.4-14.6) H 12/13/23 07:11
INR 2.84 12/13/23 07:11
Magnesium 2.1 mg/dl (1.6-2.3) 12/13/23 14:36
12/13/23
14:36
Idb-Q-Ukhylxmixuv Pept 263
LAB Results
12/13/23 12/13/23 12/14/23
14:36 20:25 02:01
Troponin I < 0.012 < 0.012 < 0.012
Physical Exam
Constitutional: No acute distress
EENT: Anicteric
Cardiovascular: Rhythm & rate is regular (SB ) and Other (mechanical heart sounds present)
Respiratory: Respiratory effort normal and Lungs clear to auscul.
Neuro/Psych: AO x 3
Other: Skin (warm and dry)
Data Reviewed
-
Date of Service: December 14, 2023
EKG: Other (tele SB)
[2023-12-14 08:24] LABS: INR 2.21; PT 24.4 Sec (11.4-14.6)
[2023-12-14 08:30] LABS: % Immature Granulocytes 0.2 % (0-0.5); % Lymphocytes 24.1 % (20.5-51.1); % Monocytes 8.6 % (1.7-9.3); % Neutrophils 64.1 % (42.2-75.2); Absolute Basophils 0.1 10^3/uL (0-0.2); Absolute Eosinophils 0.1 10^3/uL (0-0.7); Absolute Lymphocytes 1.5 10^3/uL (1.2-3.4); Absolute Monocytes 0.5 10^3/uL (0.1-0.6); Absolute Neutrophils 3.9 10^3/uL (1.4-6.5); Hematocrit 36.4 % (37.0-47.0); Hemoglobin 11.8 g/dL (12.0-16.0); Mean Corp Hgb Conc. 32.4 g/dL (33.0-37.0); Mean Corpuscular Hgb 28.2 pg (27.0-31.0); Mean Corpuscular Volume 87.1 fL (81.0-99.0); Mean Platelet Volume 9.8 fL (7.4-10.4); Nucleated Red Blood Cells % 0 %; Platelet Count 243 10^3/uL (130-400); Red Blood Cell Count 4.18 10^6/uL (4.20-5.40); Red Cell Dist. Width 13.7 % (11.5-14.5); White Blood Cell Count 6.1 10^3/uL (4.8-10.8)
[2023-12-14 08:35] LABS: Troponin I < 0.012 ng/ml
[2023-12-14 08:49] LABS: ALT (SGPT) 48 U/L (0-35); AST (SGOT) 34 U/L (14-36); Albumin 3.5 g/dl (3.5-5.0); Alkaline Phosphatase 71 U/L (38-126); Blood Urea Nitrogen 26 mg/dl (7-17); Carbon Dioxide 25 mmol/L (22-30); Chloride 109 mmol/L (98-107); Estimated Creatinine Clearance 65 ml/min; Glucose 122 mg/dl (70-99); Magnesium 2.2 mg/dl (1.6-2.3); Potassium 4.1 mmol/L (3.5-5.1); Sodium 140 mmol/L (135-145); Total Bilirubin 0.3 mg/dl (0.2-1.3); Total Protein 6.1 g/dl (6.3-8.2); eGFR > 60.00
[2023-12-14 09:09] LABS: APTT 51.1 Sec (23.4-35.0)
--- NOTE | 2023-12-14 09:41 | W.PN.GI.CBS2 ---
Today's Communication / Plan
-
Plan for colonoscopy when INR down with change in bowel pattern to eval for IBD, stricture, diverticular process vs other
2.21 today
will add Miralax 2 doses today then clears in AM
anticoagulation management per cardiology -- to start heparin gtt -- will need to hold prior to procedure
also noted bradycardia HR in 40's discussed with Dr. Cast stable for colonoscopy
CRP 47.5, ESR 29, fecal rachael pending
cont PPI daily
-Will follow
Assessment / Plan
-
The patient is a 78-year-old female with a past medical history significant for paroxysmal atrial fibrillation on Coumadin, history of severe aortic stenosis status post [facility] aortic valve replacement in 2009, hypertension,
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
hyperlipidemia, hypertension, iron deficiency anemia, overactive bladder, prior cholecystectomy, who presents to the emergency room with a multitude of complaints including diarrhea, generalized weakness, chronic headaches, whom we are being asked
to evaluate for in regards to abnormal CT findings with diarrhea. The patient notes a change of bowel habits after having diverticulitis in August, with ongoing softer/thin stools with intermittent abdominal cramping. Also with some complaints of
weakness in which she was unable to walk prior to presentation with bilateral knee pain. CT imaging on admission showed findings concerning for possible inflammatory disease of the small bowel at the terminal ileum with persistent mild
non-distention of the rectosigmoid region, along with cystic pancreatic masses that were previously seen on MRI, and a stable left adrenal mass of benign etiology. There was no evidence for diverticulitis therefore antibiotics were deferred. CT of
the head was also negative. She is not having any diarrhea therefore it is unlikely to have some kind of infectious stool etiology although gastroenteritis is possible. Last colonoscopy was done in 2020 with known history of sessile serrated
adenomas and several adenomatous polyps in 2018. She also does have chronic iron deficiency anemia and gets intermittent iron infusions. Her hemoglobin appears stable here. There were no signs of obvious infection such as fevers or leukocytosis.
Problem list:
-Change of bowel habits
-Abnormal CT findings showing concern for possible inflammatory small bowel disease, mild non-distention of the rectosigmoid area (and other non-GI findings as above)
-Known history of pancreatic cysts, last MRI in April 2023 stable
-History of severe status post aortic valve replacement on Coumadin
-Mildly elevated AST/ALT
-Recent diverticulitis August 2023, first episode
-Chronic anticoagulation as above
-bradycardia
-History of GAVE
-History of adenomatous colon polyps
Other part medical history:
-Hypertension
-CVA
-Hyperlipidemia
-Fatty liver disease
-History of atrial fibrillation
-History of ocular stroke
-Overactive bladder
-History of CCY
-GERD
Recommendations:
Plan for colonoscopy when INR down with change in bowel pattern to eval for IBD, stricture, diverticular process vs other
2.21 today
will add Miralax 2 doses today then clears in AM
anticoagulation management per cardiology -- to start heparin gtt -- will need to hold prior to procedure
also noted bradycardia HR in 40's discussed with Dr. Serene geller for colonoscopy
CRP 47.5, ESR 29, fecal rachael pending
cont PPI daily
-Will follow
Subjective
Subjective
Date of Service: December 14, 2023
on low residue diet, ADA diet
Objective
Data Reviewed
Laboratory Data:
Laboratory Results
12/14/23 07:52
12/14/23 07:52
Laboratory Results
PT 24.4 Sec (11.4-14.6) H 12/14/23 07:52
INR 2.21 12/14/23 07:52
APTT Cancelled 12/14/23 08:58
Magnesium 2.2 mg/dl (1.6-2.3) 12/14/23 07:52
Total Bilirubin 0.3 mg/dl (0.2-1.3) 12/14/23 07:52
AST 34 U/L (14-36) 12/14/23 07:52
ALT 48 U/L (0-35) H 12/14/23 07:52
Alkaline Phosphatase 71 U/L (38-126) 12/14/23 07:52
Vital Signs and I&O:
Vital Signs
Temp Pulse Resp BP Pulse Ox
98.4 F 44 16 115/54 98
12/14/23 08:00 12/14/23 08:11 12/14/23 08:00 12/14/23 08:11 12/14/23 08:00
I&O
12/13/23 12/14/23 12/15/23
06:59 06:59 06:59
Intake Total 960 / 960 480 / 480
Balance 960 / 960 480 / 480
Physical Exam
Physical Exam
HEENT: Anicteric and Moist mucous membranes
Cardiology: Other (bradycardia )
Pulmonary: Clear
GI: Soft, Non Distended and Non Tender
Neuro: Non Focal
[2023-12-14] MEDS: HEPARIN 4000 UNITS IV (10:41)
[2023-12-14] MEDS: MIRALAX 17 GRAMS PO ×2 (10:42→17:11)
[2023-12-14] MEDS: HEPARIN 25000 UNITS/250 ML IV (10:42)
[2023-12-14 11:24] LABS: Glucose - Point of Care 212 mg/dl (70-99)
[2023-12-14] MEDS: NOVOLOG FLEXPEN-LOW RESISTANCE 2 UNITS SC (12:34)
[2023-12-14 14:40] LABS: Troponin I < 0.012 ng/ml
--- NOTE | 2023-12-14 15:33 | CM ---
Diarrhea persists, Plan for colonoscopy when INR lowers. Therapy recommendation for HH PT. Will obtain preference and send referral for HH VN, PT/OT. Transitioned to inpatient. IMM signed.
[2023-12-14 15:57] LABS: Glucose - Point of Care 147 mg/dl (70-99)
[2023-12-14 17:52] LABS: APTT > 200 Sec (23.4-35.0)
--- NOTE | 2023-12-14 18:00 | PTCARENOTE ---
Patient started on Heparin this morning with a base PTT of 51.1, and initial rate of 9ml/hr with 4000units bolus. Repeat PTT this afternoon reads >200. Heparin drip stopped for 2hrs (per protocol) and to restart at 7ml/hr around 1950, Dr Morin
notified to make aware. Next PTT should be due at 0150am.
[2023-12-14] MEDS: XALATAN OPHTHALMIC SOLUTION 1 DROP BOTH EYES (20:57)
[2023-12-14 21:40] LABS: Glucose - Point of Care 147 mg/dl (70-99)
[2023-12-15 02:10] LABS: APTT 116.9 Sec (23.4-35.0)
[2023-12-15 03:21] VITALS: BP 125/58
[2023-12-15 06:00] VITALS: BMI 29.7
[2023-12-15 06:37] LABS: % Eosinophils 1.8 % (0-6); % Immature Granulocytes 0.2 % (0-0.5); % Lymphocytes 37.1 % (20.5-51.1); % Monocytes 9.1 % (1.7-9.3); % Neutrophils 50.8 % (42.2-75.2); Absolute Basophils 0.1 10^3/uL (0-0.2); Absolute Eosinophils 0.1 10^3/uL (0-0.7); Absolute Lymphocytes 2.3 10^3/uL (1.2-3.4); Absolute Monocytes 0.6 10^3/uL (0.1-0.6); Absolute Neutrophils 3.1 10^3/uL (1.4-6.5); Hematocrit 34.8 % (37.0-47.0); Hemoglobin 11.5 g/dL (12.0-16.0); Mean Corpuscular Hgb 28.4 pg (27.0-31.0); Mean Corpuscular Volume 85.9 fL (81.0-99.0); Mean Platelet Volume 10.1 fL (7.4-10.4); Nucleated Red Blood Cells % 0 %; Platelet Count 256 10^3/uL (130-400); Red Blood Cell Count 4.05 10^6/uL (4.20-5.40); Red Cell Dist. Width 13.4 % (11.5-14.5); White Blood Cell Count 6.2 10^3/uL (4.8-10.8)
[2023-12-15 06:48] LABS: INR 1.76; PT 20.3 Sec (11.4-14.6)
[2023-12-15 07:05] LABS: ALT (SGPT) 42 U/L (0-35); AST (SGOT) 35 U/L (14-36); Albumin 3.3 g/dl (3.5-5.0); Alkaline Phosphatase 68 U/L (38-126); Blood Urea Nitrogen 26 mg/dl (7-17); Carbon Dioxide 23 mmol/L (22-30); Chloride 108 mmol/L (98-107); Estimated Creatinine Clearance 66 ml/min; Glucose 104 mg/dl (70-99); Magnesium 2.1 mg/dl (1.6-2.3); Potassium 4.3 mmol/L (3.5-5.1); Sodium 138 mmol/L (135-145); Total Bilirubin 0.3 mg/dl (0.2-1.3); Total Protein 5.8 g/dl (6.3-8.2); eGFR > 60.00
[2023-12-15 07:11] VITALS: BP 138/59
--- NOTE | 2023-12-15 08:19 | W.PN.HOSP.TC ---
Today's Communication/Plan
-
see bold
Assessment / Plan
Assessment / Plan
78-year-old with multiple medical problems including history of diverticulitis, hypertension, hyperlipidemia, chronic paretic cyst, diabetes and atrial fibrillation as well chronic osteoarthritis status post bilateral knee replacement, degenerative
disc disease of the lumbosacral spine, history of duodenal bleeding gastric ectasia presented to the emergency department with the immediate of complaints but mostly diarrhea, weakness, low back pain with ambulatory difficulties. On admission, it
was reviewed -- the patient's diarrhea is likely from prior. He has chronic incontinence with pencil-like stool. She does not have watery diarrhea. She has no evidence of dehydration. She had been placed on Augmentin for abdominal cramps after
discussing with PMD few days ago. She had no fevers or chills, dysuria on admission. She had no signs or symptoms or urinary tract infection on admission. Urinary frequency and incontinence unchanged from prior. Patient shows no focal neurological
deficits on history.
Gen: NAD, AAOx3.
Eyes: EOMI, PERRLA, no scleral icterus.
Neck: supple.
CV: remains allison, +S1/S2, no m/r/g.
Resp: CTAB anteriorly, no rales, wheezes, or rhonchi.
Abd: remains +BS, soft, NT, ND
Skin: No rashes.
Neuro: CN 2-12 intact, non-focal.
Psych: Normal mood and affect.
CT A/P w/IV+PO:
1. Possible inflammatory bowel disease of the terminal ileum such as Crohn's. Peristalsis cannot be excluded�new mild left adrenal mass
2. Persistent mild nondistention of the rectosigmoid region mass cannot be excluded
3. Cystic pancreatic masses previously evaluated on MRI showed only a mass in pancreatic head no malignancy
4. Stable left adrenal mass noted to be benign adenoma by MRI
5. Diverticulosis no diverticulitis
CT head: No acute intracranial normality. Mild atrophy.
Ongoing diarrhea:
-concern for inflammatory bowel disease/Rectosigmoid region mild distention cannot rule out mass
-Had been taking Augmentin for diverticulitis by PCP (stopped as no diverticulitis on CT)
-Holding MgO as that can cause diarrhea
-C diff NEG, follow rest of stool studies
-GI following, for colonoscopy once INR down
-Holding Coumadin
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
Generalized Weakness:
-with lightheadedness
-ECG, CT brain, orthostatic VS on 12/13/23 all NEG
-PT/OT
PAF:
-on coumadin [facility] which is on hold
-currently on heparin gtt ( s/p mechanica AVR 2009)
Chronic osteoarthritis, spinal disease with acute on chronic lumbar back pain right side/rib pain due to musculoskeletal strain
-h/o lumbar epidural/lumbar rhizotomy left-sided
-Patient follows with pain management Dr. Segura in [place] is due for right-sided epidural
-Lidoderm patch to right rib
-Pain control
-PT/OT
Other problems:
Chronic daily headaches/Retinal migraines
Ischemic optic neuropathy right eye
Acute on chronic bilateral knee pain with ambulatory dysfunction, h/o bilateral knee replacements
Chronic Iron deficiency, pt reports has appointment end of December with Dr. Cortez for iron infusion
Essential HTN: cont Losartan
h/o Hypomagnesemia
Chronic urinary incontinence
h/o LBBB
h/o transient heart block/SSS
h/o CVA: cont ASA/statin
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
Chronic HFpEF: cont Lasix
DM2: a1c 6.4%, cont Lantus/SSI/accuchecks
HLD: cont statin
GERD: Cont PPI
Obesity due to excess calories:
FULL/SCDs
Anticipated Discharge: 24 - 48 hours
Subjective/Interval History
-
Date of Service: December 15, 2023
Denies CP/SOB/abd pain. Reports acute on chronic right lower back pain.
Objective Data
-
Labs:
Laboratory Results
12/15/23 12/15/23 12/15/23
01:49 05:26 06:28
WBC 6.2
Hgb 11.5 L
Hct 34.8 L
Plt Count 256
PT 20.3 H
INR 1.76
APTT 116.9 H 81.0 H
Sodium 138
Potassium 4.3
Chloride 108 H
Carbon Dioxide 23
BUN 26 H
Creatinine 0.7
Glucose 104 H
Calcium 9.0
Total Bilirubin 0.3
AST 35
ALT 42 H
Alkaline Phosphatase 68
Vital Signs:
Vital Signs
Temp Pulse Resp BP Pulse Ox
97.6 F 67 18 125/58 98
12/15/23 03:21 12/15/23 03:21 12/15/23 03:21 12/15/23 03:21 12/15/23 03:21
I&O
12/14/23 12/15/23 12/16/23
06:59 06:59 06:59
Intake Total 480 / 480 480 / 480
Balance 480 / 480 480 / 480
[2023-12-15 08:33] LABS: Glucose - Point of Care 123 mg/dl (70-99)
--- NOTE | 2023-12-15 09:10 | W.PN.CD ---
Today's Communication / Plan
-
hep gtt
monitor tele
gi procedure tomorrow
Impression / Plan
-
78 yo female with PMH of mechanical AVR (2009), paroxysmal A fib, on warfarin, prior retinal artery occlusion, chronic HFPEF, HTN is admitted for evaluation for diarrhea. She has no cardiac complaints. She is admitted because she will need heparin
bridge while INR sub-therapeutic.
# Mechanical AVR
-also with paroxysmal A fib and embolic event
-at home takes coumadin and ASA 81mg, with INR goal 2.5-3.5
-high risk for holding coumadin given paroxysmal A fib and embolic event
-holding coumadin for colonoscopy, now on heparin gtt
-given prior history of post c scope gi bleeding, would use heparing gtt to bridge post procedure
# Sinus alliosn, LBBB
-HR 40s-60s on monitor, no advanced heart block
-she reports dizziness/weakness: Not likely from HR 40s, but will continue to monitor while she is here
-will pursue op EP evaluation with Dr Marquez
# Chronic HFPEF
-appears euvolemic: cont PO lasix
# Paroxysmal A fib
-stable in sinus allison with LBBB; not on AV ryan agent due to bradycardia
-plan for AC as above
# HTN
-BP is at goal: continue losartan
Subjective:
feeling better awaits procedure
Physical Exam
Vital Signs/Labs
Vital Signs
Temp Pulse Resp BP Pulse Ox
98 F 48 24 138/59 96
12/15/23 07:11 12/15/23 07:11 12/15/23 07:11 12/15/23 07:11 12/15/23 07:11
12/14/23 12/15/23 12/16/23
06:59 06:59 06:59
Actual Weight 75.387 kg 76.067 kg
12/15/23 05:26
12/15/23 05:26
PT 20.3 Sec (11.4-14.6) H 12/15/23 05:26
INR 1.76 12/15/23 05:26
APTT 81.0 Sec (23.4-35.0) H 12/15/23 06:28
Magnesium 2.1 mg/dl (1.6-2.3) 12/15/23 05:26
12/13/23
14:36
Jkq-H-Bterfahjqiw Pept 263
LAB Results
12/13/23 12/13/23 12/14/23
14:36 20:25 02:01
Troponin I < 0.012 < 0.012 < 0.012
12/14/23 12/14/23
07:52 14:03
Troponin I < 0.012 < 0.012
Physical Exam
Constitutional: No acute distress
Cardiovascular: Rhythm & rate is regular, Pedal edema is absent, JVD pressure is normal and Systolic murmur absent
Respiratory: Respiratory effort normal, Lungs clear to auscul., Wheeze Absent, Crackles Absent and Rhonchi Absent
Neuro/Psych: AO x 3
Data Reviewed
-
Date of Service: December 15, 2023
Echo: Other (tele sinus with pacs)
[2023-12-15] MEDS: NOVOLOG FLEXPEN-LOW RESISTANCE SC ×3 (09:12→17:52)
[2023-12-15] MEDS: CRESTOR 20 MG PO (09:23)
[2023-12-15] MEDS: LASIX 20 MG PO (09:23)
[2023-12-15] MEDS: COZAAR 50 MG PO ×2 (09:24→19:57)
[2023-12-15] MEDS: COSOPT EYE DROPS 1 DROP BOTH EYES ×2 (09:25→19:57)
[2023-12-15] MEDS: KCL 20 MEQ PO (09:25)
[2023-12-15] MEDS: PROTONIX 40 MG PO (09:25)
[2023-12-15] MEDS: TYLENOL 650 MG PO (09:25)
[2023-12-15] MEDS: LOW STRENGTH ASPIRIN 81 MG PO (09:25)
[2023-12-15] MEDS: LANTUS 0.0599999999999999978 UNITS SC (09:37)
--- NOTE | 2023-12-15 10:25 | W.PN.GI.CBS2 ---
Addendum entered and electronically signed by Bev Yarbrough DO 12/15/23 11:16:
I saw and examined the patient.
The DELIVERY PERSON or PA's note was reviewed and I agree with the note.
Comment: INR down to 1.76 today, heparin gtt started. Plan to hold at 5 AM tomorrow morning. Will proceed with colonoscopy tomorrow. Patient agreeable to plan, all questions answered.
Original Note:
Today's Communication / Plan
-
Plan for colonoscopy tomorrow with change in bowel pattern to eval for IBD, stricture, diverticular process vs other
1.76 INR today
will give miralax now then prep later today
heparin gtt hold at 5am reviewed with cardiology
continued bradycardia reviewed with cardiology yesterday ok to proceed
CRP 47.5, ESR 29, fecal rachael pending
cont PPI daily
-Will follow
Assessment / Plan
-
The patient is a 78-year-old female with a past medical history significant for paroxysmal atrial fibrillation on Coumadin, history of severe aortic stenosis status post [facility] aortic valve replacement in 2009, hypertension,
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
hyperlipidemia, hypertension, iron deficiency anemia, overactive bladder, prior cholecystectomy, who presents to the emergency room with a multitude of complaints including diarrhea, generalized weakness, chronic headaches, whom we are being asked
to evaluate for in regards to abnormal CT findings with diarrhea. The patient notes a change of bowel habits after having diverticulitis in August, with ongoing softer/thin stools with intermittent abdominal cramping. Also with some complaints of
weakness in which she was unable to walk prior to presentation with bilateral knee pain. CT imaging on admission showed findings concerning for possible inflammatory disease of the small bowel at the terminal ileum with persistent mild
non-distention of the rectosigmoid region, along with cystic pancreatic masses that were previously seen on MRI, and a stable left adrenal mass of benign etiology. There was no evidence for diverticulitis therefore antibiotics were deferred. CT of
the head was also negative. She is not having any diarrhea therefore it is unlikely to have some kind of infectious stool etiology although gastroenteritis is possible. Last colonoscopy was done in 2020 with known history of sessile serrated
adenomas and several adenomatous polyps in 2018. She also does have chronic iron deficiency anemia and gets intermittent iron infusions. Her hemoglobin appears stable here. There were no signs of obvious infection such as fevers or leukocytosis.
Problem list:
-Change of bowel habits
-Abnormal CT findings showing concern for possible inflammatory small bowel disease, mild non-distention of the rectosigmoid area (and other non-GI findings as above)
-Known history of pancreatic cysts, last MRI in April 2023 stable
-History of severe status post aortic valve replacement on Coumadin
-Mildly elevated AST/ALT
-Recent diverticulitis August 2023, first episode
-Chronic anticoagulation as above
-bradycardia
-History of GAVE
-History of adenomatous colon polyps
Other part medical history:
-Hypertension
-CVA
-Hyperlipidemia
-Fatty liver disease
-History of atrial fibrillation
-History of ocular stroke
-Overactive bladder
-History of CCY
-GERD
Recommendations:
Plan for colonoscopy tomorrow with change in bowel pattern to eval for IBD, stricture, diverticular process vs other
1.76 INR today
will give miralax now then prep later today
heparin gtt hold at 5am reviewed with cardiology
continued bradycardia reviewed with cardiology yesterday ok to proceed
CRP 47.5, ESR 29, fecal rachael pending
cont PPI daily
-Will follow
Subjective
Subjective
Date of Service: December 15, 2023
small amount of stool on clear diet
Objective
Data Reviewed
Laboratory Data:
Laboratory Results
12/15/23 05:26
12/15/23 05:26
Laboratory Results
PT 20.3 Sec (11.4-14.6) H 12/15/23 05:26
INR 1.76 12/15/23 05:26
APTT 81.0 Sec (23.4-35.0) H 12/15/23 06:28
Magnesium 2.1 mg/dl (1.6-2.3) 12/15/23 05:26
Total Bilirubin 0.3 mg/dl (0.2-1.3) 12/15/23 05:26
AST 35 U/L (14-36) 12/15/23 05:26
ALT 42 U/L (0-35) H 12/15/23 05:26
Alkaline Phosphatase 68 U/L (38-126) 12/15/23 05:26
Vital Signs and I&O:
Vital Signs
Temp Pulse Resp BP Pulse Ox
98 F 48 24 138/59 96
12/15/23 07:11 12/15/23 09:24 12/15/23 07:11 12/15/23 09:24 12/15/23 07:11
I&O
12/14/23 12/15/23 12/16/23
06:59 06:59 06:59
Intake Total 480 / 480 480 / 480
Balance 480 / 480 480 / 480
Physical Exam
Physical Exam
HEENT: Anicteric and Moist mucous membranes
Cardiology: Normal Sinus Rhythm
Pulmonary: Clear
GI: Soft, Non Distended and Non Tender
Extremities: No Edema
Neuro: Non Focal
[2023-12-15] MEDS: MIRALAX 51 GRAMS PO (11:25)
[2023-12-15 11:49] VITALS: BP 136/62
[2023-12-15 12:15] LABS: Glucose - Point of Care 122 mg/dl (70-99)
[2023-12-15 15:10] VITALS: BP 165/68
--- NOTE | 2023-12-15 16:00 | CM ---
Colonoscopy scheduled for 12/16/23. Discharge plan at this time is home with [facility] and PT/OT. Will continue to follow should needs change.
--- NOTE | 2023-12-15 16:03 | VNURNOTE ---
Home Health Liaison met with patient and significant other at 1530 to discuss [facility] nurse/therapy, visits, schedule and homebound status. Patient is agreeable and understands that visits at home will be 2-3 x per week to assess and teach medical
management.
[facility] brochure provided with contact information. Patient is aware that [facility] will contact her for start of care in 1-2 days after discharge from .
[facility] referral completed and accepted previously in [facility].
[2023-12-15 16:47] LABS: Glucose - Point of Care 105 mg/dl (70-99)
[2023-12-15] MEDS: NULYTELY SOLUTION 4 LITERS PO (17:56)
[2023-12-15] MEDS: HEPARIN 25000 UNITS/250 ML IV (17:56)
[2023-12-15 19:33] VITALS: BP 171/68
[2023-12-15 19:56] LABS: APTT 94.4 Sec (23.4-35.0)
[2023-12-15 20:16] LABS: Calprotectin, Fecal 129 ug/g (<=49)
[2023-12-15 21:24] LABS: Glucose - Point of Care 94 mg/dl (70-99)
[2023-12-15] MEDS: XALATAN OPHTHALMIC SOLUTION 1 DROP BOTH EYES (22:06)
[2023-12-15 23:24] VITALS: BP 160/64
[2023-12-16] VITALS (11 sets, daily range): BP systolic 96–176; BP diastolic 49–81; PULSE 59; BMI 29.5
[2023-12-16 03:00] LABS: APTT 116.4 Sec (23.4-35.0)
--- NOTE | 2023-12-16 04:25 | DOWNTIME ---
There was a [employer] Downtime on 12/15/2023 from 0100 to 12/16/2023 at 0300. Downtime documentation of patient's care, including medication administrations, has been reconciled in the electronic record per guidelines. Refer to the
patient's paper chart under the miscellaneous tab to see printed paper medication records and downtime forms.
[2023-12-16 04:39] LABS: Glucose - Point of Care 94 mg/dl (70-99)
--- NOTE | 2023-12-16 05:02 | PTCARENOTE ---
Heparin gtt placed on HOLD per order for procedure later this AM. Pt aware of her current NPO status, updated on POC. Pt without questions at this time.
[2023-12-16 05:56] LABS: INR 1.45; PT 17.4 Sec (11.4-14.6)
[2023-12-16 06:14] LABS: % Basophils 1.5 % (0-2); % Eosinophils 1.7 % (0-6); % Immature Granulocytes 0.2 % (0-0.5); % Lymphocytes 34.2 % (20.5-51.1); % Monocytes 9.2 % (1.7-9.3); % Neutrophils 53.2 % (42.2-75.2); Absolute Basophils 0.1 10^3/uL (0-0.2); Absolute Eosinophils 0.1 10^3/uL (0-0.7); Absolute Lymphocytes 1.6 10^3/uL (1.2-3.4); Absolute Monocytes 0.4 10^3/uL (0.1-0.6); Absolute Neutrophils 2.5 10^3/uL (1.4-6.5); Hemoglobin 12.3 g/dL (12.0-16.0); Mean Corp Hgb Conc. 33.2 g/dL (33.0-37.0); Mean Corpuscular Hgb 28.4 pg (27.0-31.0); Mean Corpuscular Volume 85.5 fL (81.0-99.0); Mean Platelet Volume 9.7 fL (7.4-10.4); Nucleated Red Blood Cells % 0 %; Platelet Count 240 10^3/uL (130-400); Red Blood Cell Count 4.33 10^6/uL (4.20-5.40); Red Cell Dist. Width 13.5 % (11.5-14.5); White Blood Cell Count 4.7 10^3/uL (4.8-10.8)
[2023-12-16 06:29] LABS: ALT (SGPT) 59 U/L (0-35); AST (SGOT) 69 U/L (14-36); Albumin 3.6 g/dl (3.5-5.0); Alkaline Phosphatase 74 U/L (38-126); Blood Urea Nitrogen 18 mg/dl (7-17); Calcium 9.3 mg/dl (8.4-10.2); Carbon Dioxide 22 mmol/L (22-30); Chloride 110 mmol/L (98-107); Estimated Creatinine Clearance 76 ml/min; Glucose 94 mg/dl (70-99); Magnesium 2.2 mg/dl (1.6-2.3); Potassium 4.2 mmol/L (3.5-5.1); Sodium 141 mmol/L (135-145); Total Bilirubin 0.5 mg/dl (0.2-1.3); Total Protein 6.2 g/dl (6.3-8.2); eGFR > 60.00
[2023-12-16 08:27] LABS: Glucose - Point of Care 92 mg/dl (70-99)
--- NOTE | 2023-12-16 08:38 | PTCARENOTE ---
Report given to GI dept. Patient has completed her prep solution to the best of her ability, reports feeling clear.
[2023-12-16] MEDS: NOVOLOG FLEXPEN-LOW RESISTANCE SC ×3 (09:01→17:15)
[2023-12-16] MEDS: CRESTOR PO (09:02)
[2023-12-16] MEDS: COSOPT EYE DROPS BOTH EYES (09:02)
[2023-12-16] MEDS: COZAAR PO (09:02)
[2023-12-16] MEDS: LASIX PO (09:03)
[2023-12-16] MEDS: KCL PO (09:03)
[2023-12-16] MEDS: LOW STRENGTH ASPIRIN PO (09:03)
[2023-12-16] MEDS: LANTUS SC (09:03)
[2023-12-16] MEDS: PROTONIX PO (09:03)
[2023-12-16 10:09] LABS: Glucose - Point of Care 91 mg/dl (70-99)
--- NOTE | 2023-12-16 10:23 | W.PN.HOSP.TC ---
Today's Communication/Plan
-
see bold
Assessment / Plan
Assessment / Plan
78-year-old with multiple medical problems including history of diverticulitis, hypertension, hyperlipidemia, chronic paretic cyst, diabetes and atrial fibrillation as well chronic osteoarthritis status post bilateral knee replacement, degenerative
disc disease of the lumbosacral spine, history of duodenal bleeding gastric ectasia presented to the emergency department with the immediate of complaints but mostly diarrhea, weakness, low back pain with ambulatory difficulties. On admission, it
was reviewed -- the patient's diarrhea is likely from prior. He has chronic incontinence with pencil-like stool. She does not have watery diarrhea. She has no evidence of dehydration. She had been placed on Augmentin for abdominal cramps after
discussing with PMD few days ago. She had no fevers or chills, dysuria on admission. She had no signs or symptoms or urinary tract infection on admission. Urinary frequency and incontinence unchanged from prior. Patient shows no focal neurological
deficits on history.
Gen: NAD, AAOx3.
Eyes: EOMI, PERRLA, no scleral icterus.
Neck: supple.
CV: continues to remain allison, +S1/S2, no m/r/g.
Resp: remains CTAB anteriorly, no rales, wheezes, or rhonchi.
Abd: +BS, soft, NT, ND
Skin: No rashes.
Neuro: CN 2-12 intact, non-focal.
Psych: slightly depressed affect.
CT A/P w/IV+PO:
1. Possible inflammatory bowel disease of the terminal ileum such as Crohn's. Peristalsis cannot be excluded�new mild left adrenal mass
2. Persistent mild nondistention of the rectosigmoid region mass cannot be excluded
3. Cystic pancreatic masses previously evaluated on MRI showed only a mass in pancreatic head no malignancy
4. Stable left adrenal mass noted to be benign adenoma by MRI
5. Diverticulosis no diverticulitis
CT head: No acute intracranial normality. Mild atrophy.
Colonoscopy 12/16/23: The examined portion of the ileum was normal. Biopsied. One 4 mm polyp at the ileocecal valve, removed with a cold snare. Resected and retrieved. Diverticulosis in the sigmoid colon. Non-bleeding internal hemorrhoids. Biopsies
were taken with a cold forceps from the right colon and left colon for evaluation of microscopic colitis.
Ongoing diarrhea:
-concern for inflammatory bowel disease/Rectosigmoid region mild distention cannot rule out mass based on imaging on admission
-Had been taking Augmentin for diverticulitis by PCP (stopped as no diverticulitis on CT)
-Holding MgO as that can cause diarrhea
-C diff NEG, stool Cx NEG
-GI following
-Colonoscopy 12/16/23 above, fairly unremarkable. Bleeding could have been done due to diverticula or internal hemorrhoids. Follow biopsy pathology.
-restart Heparin/Coumadin bridge (discussed with GI)
Generalized Weakness:
-with lightheadedness
-ECG, CT brain, orthostatic VS on 12/13/23 all NEG
-PT/OT
PAF:
-restart Heparin/Coumadin bridge (discussed with GI)
-h/o s/p mechanical AVR 2009
Chronic osteoarthritis, spinal disease with acute on chronic lumbar back pain right side/rib pain due to musculoskeletal strain
-h/o lumbar epidural/lumbar rhizotomy left-sided
-Patient follows with pain management Dr. Segura in [place] is due for right-sided epidural
-Lidoderm patch to right rib
-Pain control
-PT/OT
Other problems:
Chronic daily headaches/Retinal migraines
Ischemic optic neuropathy right eye
Acute on chronic bilateral knee pain with ambulatory dysfunction, h/o bilateral knee replacements
Chronic Iron deficiency, pt reports has appointment end of December with Dr. Cortez for iron infusion
Essential HTN: cont Losartan
h/o Hypomagnesemia
Chronic urinary incontinence
h/o LBBB
h/o transient heart block/SSS
h/o CVA: cont ASA/statin
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
Chronic HFpEF: cont Lasix
DM2: a1c 6.4%, cont Lantus/SSI/accuchecks
HLD: cont statin
GERD: Cont PPI
Obesity due to excess calories: encourage wt loss, affects all aspects of care
Pt's updated at bedside. Case discussed with cardiology.
FULL/SCDs
Anticipated Discharge: 24 - 48 hours
Subjective/Interval History
-
Date of Service: December 16, 2023
Denies CP/SOB.
Objective Data
-
Labs:
Laboratory Results
12/16/23 12/16/23
01:40 05:32
WBC 4.7 L
Hgb 12.3
Hct 37.0
Plt Count 240
PT 17.4 H
INR 1.45
APTT 116.4 H
Sodium 141
Potassium 4.2
Chloride 110 H
Carbon Dioxide 22
BUN 18 H
Creatinine 0.6
Glucose 94
Calcium 9.3
Total Bilirubin 0.5
AST 69 H
ALT 59 H
Alkaline Phosphatase 74
Vital Signs:
Vital Signs
Temp Pulse Resp BP Pulse Ox
97.3 F 54 21 135/49 97
12/16/23 10:00 12/16/23 10:15 12/16/23 10:15 12/16/23 10:15 12/16/23 10:15
I&O
12/15/23 12/16/23 12/17/23
06:59 06:59 06:59
Intake Total 480 / 480 1440 / 1440
Balance 480 / 480 1440 / 1440
--- NOTE | 2023-12-16 11:29 | PTCARENOTE ---
Patient had colonoscopy procedure this morning (well tolerated). Resuming Heparin drip at previous rate and follow up with algorithm, per Dr Morin; and will bridge with coumadin tonight. Plan confirmed with Cardiology, at bedside.
[2023-12-16 12:04] LABS: Glucose - Point of Care 92 mg/dl (70-99)
[2023-12-16] MEDS: PROTONIX 40 MG PO (12:43)
[2023-12-16] MEDS: COZAAR 50 MG PO ×2 (12:44→19:59)
[2023-12-16] MEDS: LASIX 20 MG PO (12:44)
[2023-12-16] MEDS: LANTUS 0.0599999999999999978 UNITS SC (12:44)
[2023-12-16] MEDS: CRESTOR 20 MG PO (12:44)
[2023-12-16] MEDS: KCL 20 MEQ PO (12:45)
--- NOTE | 2023-12-16 13:11 | W.PN.CD ---
Today's Communication / Plan
-
cont heparin gtt to warfarin bridge
Impression / Plan
-
78 yo female with PMH of mechanical AVR (2009), paroxysmal A fib, on warfarin, prior retinal artery occlusion, chronic HFPEF, HTN is admitted for evaluation for diarrhea. She has no cardiac complaints. She is admitted because she will need heparin
bridge while INR sub-therapeutic.
# Mechanical AVR
-also with paroxysmal A fib and embolic event
-at home takes coumadin and ASA 81mg, with INR goal 2.5-3.5
-high risk for holding coumadin given paroxysmal A fib and embolic event
-restart coumadin now on heparin gtt
-given prior history of post c scope gi bleeding, would use heparin gtt to bridge post procedure
# Sinus allison, LBBB
-HR 40s-60s on monitor, no advanced heart block
-she reports dizziness/weakness: Not likely from HR 40s, but will continue to monitor while she is here
-will pursue op EP evaluation with Dr Marquez, I discussed with her ongoing eval of bradycardia and she understands will be seen as outpt
# Chronic HFPEF
-appears euvolemic: cont PO lasix
# Paroxysmal A fib
-stable in sinus allison with LBBB; not on AV ryan agent due to bradycardia
-plan for AC as above
# HTN
-BP is at goal: continue losartan
Subjective:
feeling better awaits procedure
Physical Exam
Vital Signs/Labs
Vital Signs
Temp Pulse Resp BP Pulse Ox
97.6 F 43 16 157/54 100
12/16/23 11:00 12/16/23 12:44 12/16/23 11:00 12/16/23 12:44 12/16/23 11:00
12/15/23 12/16/23 12/17/23
06:59 06:59 06:59
Actual Weight 167 lb 11.2 oz 166 lb 4 oz
12/16/23 05:32
12/16/23 05:32
PT 17.4 Sec (11.4-14.6) H 12/16/23 05:32
INR 1.45 12/16/23 05:32
APTT 116.4 Sec (23.4-35.0) H 12/16/23 01:40
Magnesium 2.2 mg/dl (1.6-2.3) 12/16/23 05:32
12/13/23
14:36
Tbk-P-Yhwcpsfords Pept 263
LAB Results
12/13/23 12/13/23 12/14/23
14:36 20:25 02:01
Troponin I < 0.012 < 0.012 < 0.012
12/14/23 12/14/23
07:52 14:03
Troponin I < 0.012 < 0.012
Physical Exam
Constitutional: No acute distress
EENT: Anicteric
Cardiovascular: Rhythm & rate is regular and Pedal edema is absent
Respiratory: Respiratory effort normal and Lungs clear to auscul.
GI: Soft
Neuro/Psych: AO x 3
Data Reviewed
-
Date of Service: December 16, 2023
Medical Decision Making: Reviewed Test Results
EKG: Tracing Personally Visualized and interpreted (sr)
Echo: Report Reviewed by me
Labs: Labs Reviewed by me
--- NOTE | 2023-12-16 14:47 | CM ---
Colonoscopy completed on this date with several biopsies. Discharge Plan of Care remains: [facility] and PT/OT. Will continue to follow should needs change.
[2023-12-16 15:36] LABS: APTT 34.9 Sec (23.4-35.0)
[2023-12-16 17:00] LABS: Glucose - Point of Care 142 mg/dl (70-99)
[2023-12-16] MEDS: COUMADIN 5 MG PO (17:34)
[2023-12-16] MEDS: COSOPT EYE DROPS 1 DROP BOTH EYES (19:58)
[2023-12-16] MEDS: HEPARIN 25000 UNITS/250 ML IV (20:01)
[2023-12-16] MEDS: XALATAN OPHTHALMIC SOLUTION 1 DROP BOTH EYES (21:07)
[2023-12-16 21:22] LABS: Glucose - Point of Care 178 mg/dl (70-99)
[2023-12-16 22:15] LABS: APTT 88.8 Sec (23.4-35.0)
[2023-12-17 03:52] VITALS: BP 158/62
[2023-12-17 04:01] LABS: INR 1.41; PT 17.3 Sec (11.4-14.6)
[2023-12-17 04:03] LABS: APTT 105.1 Sec (23.4-35.0)
[2023-12-17 04:18] LABS: Magnesium 2.1 mg/dl (1.6-2.3)
[2023-12-17 05:45] VITALS: BMI 29.4
[2023-12-17 07:00] VITALS: BP 141/61
[2023-12-17 07:14] LABS: Glucose - Point of Care 130 mg/dl (70-99)
[2023-12-17] MEDS: NOVOLOG FLEXPEN-LOW RESISTANCE SC ×2 (08:20→17:58)
[2023-12-17] MEDS: CRESTOR 20 MG PO (08:31)
[2023-12-17] MEDS: COZAAR 50 MG PO ×2 (08:31→20:38)
[2023-12-17] MEDS: LASIX 20 MG PO (08:32)
[2023-12-17] MEDS: LANTUS 0.0599999999999999978 UNITS SC (08:32)
[2023-12-17] MEDS: PROTONIX 40 MG PO (08:32)
[2023-12-17] MEDS: KCL 20 MEQ PO (08:32)
[2023-12-17] MEDS: COSOPT EYE DROPS 1 DROP BOTH EYES ×2 (08:33→20:38)
[2023-12-17] MEDS: LOW STRENGTH ASPIRIN 81 MG PO (08:37)
--- NOTE | 2023-12-17 09:59 | W.PN.HOSP.TC ---
Today's Communication/Plan
-
see bold
Assessment / Plan
Assessment / Plan
78-year-old with multiple medical problems including history of diverticulitis, hypertension, hyperlipidemia, chronic paretic cyst, diabetes and atrial fibrillation as well chronic osteoarthritis status post bilateral knee replacement, degenerative
disc disease of the lumbosacral spine, history of duodenal bleeding gastric ectasia presented to the emergency department with the immediate of complaints but mostly diarrhea, weakness, low back pain with ambulatory difficulties. On admission, it
was reviewed -- the patient's diarrhea is likely from prior. He has chronic incontinence with pencil-like stool. She does not have watery diarrhea. She has no evidence of dehydration. She had been placed on Augmentin for abdominal cramps after
discussing with PMD few days ago. She had no fevers or chills, dysuria on admission. She had no signs or symptoms or urinary tract infection on admission. Urinary frequency and incontinence unchanged from prior. Patient shows no focal neurological
deficits on history.
Gen: NAD, AAOx3.
Eyes: EOMI, PERRLA, no scleral icterus.
Neck: supple.
CV: allison, +S1/S2, no m/r/g.
Resp: continues to remain CTAB anteriorly, no rales, wheezes, or rhonchi.
Abd: +BS, soft, NT, ND
Skin: No rashes.
Neuro: CN 2-12 intact, non-focal.
Psych: normal mood and affect.
CT A/P w/IV+PO:
1. Possible inflammatory bowel disease of the terminal ileum such as Crohn's. Peristalsis cannot be excluded�new mild left adrenal mass
2. Persistent mild nondistention of the rectosigmoid region mass cannot be excluded
3. Cystic pancreatic masses previously evaluated on MRI showed only a mass in pancreatic head no malignancy
4. Stable left adrenal mass noted to be benign adenoma by MRI
5. Diverticulosis no diverticulitis
CT head: No acute intracranial normality. Mild atrophy.
Colonoscopy 12/16/23: The examined portion of the ileum was normal. Biopsied. One 4 mm polyp at the ileocecal valve, removed with a cold snare. Resected and retrieved. Diverticulosis in the sigmoid colon. Non-bleeding internal hemorrhoids. Biopsies
were taken with a cold forceps from the right colon and left colon for evaluation of microscopic colitis.
Ongoing diarrhea:
-concern for inflammatory bowel disease/Rectosigmoid region mild distention cannot rule out mass based on imaging on admission
-Had been taking Augmentin for diverticulitis by PCP (stopped as no diverticulitis on CT)
-Holding MgO as that can cause diarrhea
-C diff NEG, stool Cx NEG
-GI following
-Colonoscopy 12/16/23 above, fairly unremarkable. Bleeding could have been done due to diverticula or internal hemorrhoids. Follow biopsy pathology.
-cont Heparin/Coumadin bridge
Generalized Weakness:
-with lightheadedness
-ECG, CT brain, orthostatic VS on 12/13/23 all NEG
-PT/OT
PAF:
-cont Heparin/Coumadin bridge
-h/o s/p mechanical AVR 2009
Chronic osteoarthritis, spinal disease with acute on chronic lumbar back pain right side/rib pain due to musculoskeletal strain
-h/o lumbar epidural/lumbar rhizotomy left-sided
-Patient follows with pain management Dr. Segura in [place] is due for right-sided epidural
-Lidoderm patch to right rib
-Pain control
-PT/OT
Other problems:
Mild transaminitis, trend
Chronic daily headaches/Retinal migraines
Ischemic optic neuropathy right eye
Acute on chronic bilateral knee pain with ambulatory dysfunction, h/o bilateral knee replacements
Chronic Iron deficiency, pt reports has appointment end of December with Dr. Cortez for iron infusion
Essential HTN: cont Losartan
h/o Hypomagnesemia
Chronic urinary incontinence
h/o LBBB
h/o transient heart block/SSS
h/o CVA: cont ASA/statin
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
Chronic HFpEF: cont Lasix
DM2: a1c 6.4%, cont Lantus/SSI/accuchecks
HLD: cont statin
GERD: Cont PPI
Obesity due to excess calories: encourage wt loss, affects all aspects of care
FULL/heparin gtt
Anticipated Discharge: 24 - 48 hours
Subjective/Interval History
-
Date of Service: December 17, 2023
c/o R low back pain with BMs.
Objective Data
-
Labs:
Laboratory Results
12/16/23 12/17/23 12/17/23
21:57 03:40 06:00
PT 17.3 H Cancelled
INR 1.41 Cancelled
APTT 88.8 H 105.1 H
Vital Signs:
Vital Signs
Temp Pulse Resp BP Pulse Ox
98 F 49 16 141/61 99
12/17/23 07:00 12/17/23 08:32 12/17/23 07:00 12/17/23 08:32 12/17/23 07:00
I&O
12/16/23 12/17/23 12/18/23
06:59 06:59 06:59
Intake Total 1440 / 1440 1308 / 1308
Output Total 200 / 200
Balance 1440 / 1440 1108 / 1108
--- NOTE | 2023-12-17 10:31 | W.PN.CD ---
Addendum entered and electronically signed by Davie Mcghee MD 12/17/23 12:02:
I saw and examined the patient.
The POLICY ADVISER's note was reviewed and I agree with the note.
Comment: -continue heparin gtt, continue warfarin (bridge). Daily INR's- goal 2.5-3.5. Follow telemetry.
Original Note:
Today's Communication / Plan
-
-continue heparin gtt, continue warfarin (bridge). Daily INR's- goal 2.5-3.5. Follow telemetry.
Impression / Plan
-
78 yo female with PMH of mechanical AVR (2009), paroxysmal A fib, on warfarin, prior retinal artery occlusion, chronic HFPEF, HTN is admitted for evaluation for diarrhea. She has no cardiac complaints. She is admitted because she will need heparin
bridge while INR sub-therapeutic.
# Mechanical AVR
-also with paroxysmal A fib and embolic event
-at home takes coumadin and ASA 81mg, with INR goal 2.5-3.5
-high risk for holding coumadin given paroxysmal A fib and embolic event
-given prior history of post c scope gi bleeding, using heparin gtt to bridge post procedure
-warfarin restarted and remains on heparin gtt- still subtherapeutic- daily INR's. Heparin monitoring per protocol.
# Sinus allison, LBBB
-HR 40s-60s on monitor, no advanced heart block. Currently 40's SR. Occasional PVC's. No prolonged pauses.
-she reports dizziness/weakness: Not likely from HR 40s, but will continue to monitor while she is here
-will pursue op EP evaluation with Dr Marquez. Dr. Mcghee discussed with her ongoing eval of bradycardia and she understands will be seen as outpt.
# Chronic HFPEF
-appears euvolemic: cont PO Lasix
# Paroxysmal A fib
-stable in sinus allison with LBBB; not on AV ryan agent due to bradycardia
-plan for AC as above
# HTN
-BP is at goal: continue losartan
Subjective:
Feeling improved overall
Denies SOB
Physical Exam
Vital Signs/Labs
Vital Signs
Temp Pulse Resp BP Pulse Ox
98 F 49 16 141/61 99
12/17/23 07:00 12/17/23 08:32 12/17/23 07:00 12/17/23 08:32 12/17/23 07:00
12/16/23 12/17/23 12/18/23
06:59 06:59 06:59
Actual Weight 75.41 kg 75.325 kg
12/16/23 05:32
12/16/23 05:32
PT Cancelled 12/17/23 06:00
INR Cancelled 12/17/23 06:00
APTT 105.1 Sec (23.4-35.0) H 12/17/23 03:40
Magnesium 2.1 mg/dl (1.6-2.3) 12/17/23 03:40
12/13/23
14:36
Pgk-[id number] Pept 263
LAB Results
12/14/23
14:03
Troponin I < 0.012
Physical Exam
Constitutional: No acute distress
EENT: Anicteric
Cardiovascular: Rhythm & rate is regular (SB)
Respiratory: Respiratory effort normal and Lungs clear to auscul.
Neuro/Psych: AO x 3
Data Reviewed
-
Date of Service: December 17, 2023
EKG: Other (tele SB, occ PVC's)
[2023-12-17 11:00] VITALS: BP 154/68
[2023-12-17 11:23] LABS: ALT (SGPT) 42 U/L (0-35); AST (SGOT) 33 U/L (14-36); Albumin 3.6 g/dl (3.5-5.0); Alkaline Phosphatase 70 U/L (38-126); Direct Bilirubin 0.2 mg/dl (0.0-0.4); Total Bilirubin 0.3 mg/dl (0.2-1.3); Total Protein 6.2 g/dl (6.3-8.2)
[2023-12-17 12:11] LABS: Glucose - Point of Care 171 mg/dl (70-99)
[2023-12-17] MEDS: NOVOLOG FLEXPEN-LOW RESISTANCE 1 UNITS SC (12:52)
[2023-12-17 15:00] VITALS: BP 141/62
--- NOTE | 2023-12-17 15:17 | CM ---
Heparin gtt continues. Discharge Plan of Care: Home with [facility]N and PT/OT.
[2023-12-17 17:22] LABS: Glucose - Point of Care 139 mg/dl (70-99)
[2023-12-17] MEDS: COUMADIN 5 MG PO (18:32)
[2023-12-17 20:07] VITALS: BP 117/51
[2023-12-17] MEDS: XALATAN OPHTHALMIC SOLUTION 1 DROP BOTH EYES (20:40)
[2023-12-17 22:09] LABS: Glucose - Point of Care 140 mg/dl (70-99)
[2023-12-17 23:33] VITALS: BP 137/54
[2023-12-18] MEDS: HEPARIN 25000 UNITS/250 ML IV (01:52)
[2023-12-18] MEDS: TYLENOL 650 MG PO ×2 (02:25→17:23)
[2023-12-18 03:30] VITALS: BP 118/48
[2023-12-18 05:41] VITALS: BMI 29.2
[2023-12-18 06:30] LABS: Hematocrit 36.9 % (37.0-47.0); Hemoglobin 12.4 g/dL (12.0-16.0); Mean Corp Hgb Conc. 33.6 g/dL (33.0-37.0); Mean Corpuscular Hgb 28.8 pg (27.0-31.0); Mean Corpuscular Volume 85.6 fL (81.0-99.0); Mean Platelet Volume 10.2 fL (7.4-10.4); Platelet Count 271 10^3/uL (130-400); Red Blood Cell Count 4.31 10^6/uL (4.20-5.40); Red Cell Dist. Width 13.6 % (11.5-14.5); White Blood Cell Count 6.9 10^3/uL (4.8-10.8)
[2023-12-18 06:42] LABS: INR 1.53; PT 18.5 Sec (11.4-14.6)
[2023-12-18 07:00] VITALS: BP 115/50
[2023-12-18 07:00] LABS: APTT > 200 Sec (23.4-35.0)
[2023-12-18 07:08] LABS: Glucose - Point of Care 113 mg/dl (70-99)
[2023-12-18] MEDS: PROTONIX 40 MG PO (08:22)
[2023-12-18] MEDS: LOW STRENGTH ASPIRIN 81 MG PO (08:22)
[2023-12-18] MEDS: NOVOLOG FLEXPEN-LOW RESISTANCE SC ×2 (08:22→17:21)
[2023-12-18] MEDS: COZAAR 50 MG PO ×2 (08:23→20:35)
[2023-12-18] MEDS: CRESTOR 20 MG PO (08:24)
[2023-12-18] MEDS: KCL 20 MEQ PO (08:24)
[2023-12-18] MEDS: LASIX 20 MG PO (08:24)
[2023-12-18] MEDS: COSOPT EYE DROPS 1 DROP BOTH EYES ×2 (08:27→20:35)
[2023-12-18] MEDS: LANTUS 0.0599999999999999978 UNITS SC (08:27)
--- NOTE | 2023-12-18 08:38 | W.PN.HOSP.TC ---
Today's Communication/Plan
-
see bold
Assessment / Plan
Assessment / Plan
78-year-old with multiple medical problems including history of diverticulitis, hypertension, hyperlipidemia, chronic paretic cyst, diabetes and atrial fibrillation as well chronic osteoarthritis status post bilateral knee replacement, degenerative
disc disease of the lumbosacral spine, history of duodenal bleeding gastric ectasia presented to the emergency department with the immediate of complaints but mostly diarrhea, weakness, low back pain with ambulatory difficulties. On admission, it
was reviewed -- the patient's diarrhea is likely from prior. He has chronic incontinence with pencil-like stool. She does not have watery diarrhea. She has no evidence of dehydration. She had been placed on Augmentin for abdominal cramps after
discussing with PMD few days ago. She had no fevers or chills, dysuria on admission. She had no signs or symptoms or urinary tract infection on admission. Urinary frequency and incontinence unchanged from prior. Patient shows no focal neurological
deficits on history.
Gen: remains NAD, AAOx3.
Eyes: EOMI, PERRLA, no scleral icterus.
Neck: supple.
CV: remains allison, +S1/S2, no m/r/g.
Resp: CTAB anteriorly, no rales, wheezes, or rhonchi.
Abd: +BS, soft, NT, ND
Skin: No rashes.
Neuro: CN 2-12 intact, non-focal.
Psych: normal mood and affect.
CT A/P w/IV+PO:
1. Possible inflammatory bowel disease of the terminal ileum such as Crohn's. Peristalsis cannot be excluded�new mild left adrenal mass
2. Persistent mild nondistention of the rectosigmoid region mass cannot be excluded
3. Cystic pancreatic masses previously evaluated on MRI showed only a mass in pancreatic head no malignancy
4. Stable left adrenal mass noted to be benign adenoma by MRI
5. Diverticulosis no diverticulitis
CT head: No acute intracranial normality. Mild atrophy.
Colonoscopy 12/16/23: The examined portion of the ileum was normal. Biopsied. One 4 mm polyp at the ileocecal valve, removed with a cold snare. Resected and retrieved. Diverticulosis in the sigmoid colon. Non-bleeding internal hemorrhoids. Biopsies
were taken with a cold forceps from the right colon and left colon for evaluation of microscopic colitis.
Ongoing diarrhea:
-concern for inflammatory bowel disease/Rectosigmoid region mild distention cannot rule out mass based on imaging on admission
-Had been taking Augmentin for diverticulitis by PCP (stopped as no diverticulitis on CT)
-Holding MgO as that can cause diarrhea
-C diff NEG, stool Cx NEG
-GI following
-Colonoscopy 12/16/23 above, fairly unremarkable. Bleeding could have been done due to diverticula or internal hemorrhoids. Follow biopsy pathology.
-cont Heparin/Coumadin bridge (7.5mg coumadin tonight)
Generalized Weakness:
-with lightheadedness
-ECG, CT brain, orthostatic VS on 12/13/23 all NEG
-PT/OT
PAF:
-cont Heparin/Coumadin bridge (7.5mg coumadin tonight)
-h/o s/p mechanical AVR 2009
Chronic osteoarthritis, spinal disease with acute on chronic lumbar back pain right side/rib pain due to musculoskeletal strain
-h/o lumbar epidural/lumbar rhizotomy left-sided
-Patient follows with pain management Dr. Segura in [place] is due for right-sided epidural
-Lidoderm patch to right rib
-Pain control
-PT/OT
Other problems:
Mild transaminitis, trend
Chronic daily headaches/Retinal migraines
Ischemic optic neuropathy right eye
Acute on chronic bilateral knee pain with ambulatory dysfunction, h/o bilateral knee replacements
Chronic Iron deficiency, pt reports has appointment end of December with Dr. Cortez for iron infusion
Essential HTN: cont Losartan
h/o Hypomagnesemia
Chronic urinary incontinence
h/o LBBB
h/o transient heart block/SSS
h/o CVA: cont ASA/statin
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
Chronic HFpEF: cont Lasix
DM2: a1c 6.4%, cont Lantus/SSI/accuchecks
HLD: cont statin
GERD: Cont PPI
Obesity due to excess calories: encourage wt loss, affects all aspects of care
FULL/heparin gtt
Anticipated Discharge: 24 - 48 hours
Subjective/Interval History
-
Date of Service: December 18, 2023
No new complaints.
Objective Data
-
Labs:
Laboratory Results
12/18/23
05:38
WBC 6.9
Hgb 12.4
Hct 36.9 L
Plt Count 271
PT 18.5 H
INR 1.53
APTT > 200 H*
Vital Signs:
Vital Signs
Temp Pulse Resp BP Pulse Ox
97.6 F 40 16 115/50 96
12/18/23 07:00 12/18/23 08:23 12/18/23 07:00 12/18/23 08:23 12/18/23 07:00
I&O
12/17/23 12/18/23 12/19/23
06:59 06:59 06:59
Intake Total 1308 / 1308 960 / 960
Output Total 200 / 200
Balance 1108 / 1108 960 / 960
--- NOTE | 2023-12-18 09:25 | W.PN.CD ---
Today's Communication / Plan
-
heparin bridge, coumadin
Impression / Plan
-
78 yo female with PMH of mechanical AVR (2009), paroxysmal A fib, on warfarin, prior retinal artery occlusion, chronic HFPEF, HTN is admitted for evaluation for diarrhea. She has no cardiac complaints. She is admitted because she will need heparin
bridge while INR sub-therapeutic.
# Mechanical AVR
-also with paroxysmal A fib and embolic event
-at home takes coumadin and ASA 81mg, with INR goal 2.5-3.5
-high risk for holding coumadin given paroxysmal A fib and embolic event
-given prior history of post c scope gi bleeding, using heparin gtt to bridge post procedure
-warfarin restarted and remains on heparin gtt
-requires monitoring of PTT and Hgb
# Sinus allison, LBBB
-HR 40s-60s on monitor, no advanced heart block. Occasional PVC's. No prolonged pauses.
-she reports dizziness/weakness: Not likely from HR 40s, but will continue to monitor while she is here
-will pursue op EP evaluation with Dr Marquez. Discussed with her ongoing eval of bradycardia and she understands will be seen as outpt.
# Chronic HFPEF
-appears euvolemic: cont PO Lasix
# Paroxysmal A fib
-stable in sinus allison with LBBB; not on AV ryan agent due to bradycardia
-plan for AC as above
# HTN
-BP is at goal: continue losartan
Subjective:
No cardiac complaints
Physical Exam
Vital Signs/Labs
Vital Signs
Temp Pulse Resp BP Pulse Ox
97.6 F 40 16 115/50 96
12/18/23 07:00 12/18/23 08:23 12/18/23 07:00 12/18/23 08:23 12/18/23 07:00
12/17/23 12/18/23 12/19/23
06:59 06:59 06:59
Actual Weight 75.325 kg 74.871 kg
12/18/23 05:38
12/16/23 05:32
PT 18.5 Sec (11.4-14.6) H 12/18/23 05:38
INR 1.53 12/18/23 05:38
APTT > 200 Sec (23.4-35.0) H* 12/18/23 05:38
Magnesium 2.0 mg/dl (1.6-2.3) 12/18/23 05:38
12/13/23
14:36
Xss-Y-Gpjlzsgglvz Pept 263
Physical Exam
Constitutional: No acute distress and Comfortable
EENT: Moist mucous membranes
Cardiovascular: Rhythm & rate is regular, Pedal edema is absent, JVD pressure is normal, Systolic murmur absent and Other (+mechanical valve click)
Respiratory: Respiratory effort normal and Lungs clear to auscul.
GI: Soft, Distention absent and Flat
Neuro/Psych: AO x 3
Data Reviewed
-
Date of Service: December 18, 2023
EKG: Other (Tele: SR/SB 40s-60s, PVC's)
Labs: Labs Reviewed by me
[2023-12-18 11:00] VITALS: BP 121/51
[2023-12-18 12:11] LABS: Glucose - Point of Care 156 mg/dl (70-99)
[2023-12-18] MEDS: NOVOLOG FLEXPEN-LOW RESISTANCE 1 UNITS SC (12:58)
--- NOTE | 2023-12-18 14:11 | CM ---
Heparin/Coumadin bridge. PT/OT with no needs. Will proceed with [facility] for VN services.
[2023-12-18 15:53] VITALS: BP 114/44
[2023-12-18 16:30] LABS: APTT 86.6 Sec (23.4-35.0)
[2023-12-18 16:38] LABS: Glucose - Point of Care 144 mg/dl (70-99)
[2023-12-18] MEDS: COUMADIN 7.5 MG PO (17:21)
[2023-12-18 19:15] VITALS: BP 109/40
[2023-12-18] MEDS: XALATAN OPHTHALMIC SOLUTION 1 DROP BOTH EYES (21:20)
[2023-12-18 22:16] LABS: Glucose - Point of Care 159 mg/dl (70-99)
[2023-12-18 22:49] LABS: APTT 93.1 Sec (23.4-35.0)
[2023-12-18 23:08] VITALS: BP 137/53
[2023-12-19 03:43] VITALS: BP 123/58
[2023-12-19 05:53] VITALS: BMI 29.4
[2023-12-19 06:00] VITALS: BMI 29.4
[2023-12-19 06:17] LABS: INR 2.04; PT 22.9 Sec (11.4-14.6)
[2023-12-19 06:18] LABS: APTT 93.1 Sec (23.4-35.0)
[2023-12-19 07:00] VITALS: BP 135/54
[2023-12-19 07:10] LABS: Glucose - Point of Care 126 mg/dl (70-99)
--- NOTE | 2023-12-19 08:01 | W.PN.HOSP.TC ---
Today's Communication/Plan
-
see bold
Assessment / Plan
Assessment / Plan
78-year-old with multiple medical problems including history of diverticulitis, hypertension, hyperlipidemia, chronic paretic cyst, diabetes and atrial fibrillation as well chronic osteoarthritis status post bilateral knee replacement, degenerative
disc disease of the lumbosacral spine, history of duodenal bleeding gastric ectasia presented to the emergency department with the immediate of complaints but mostly diarrhea, weakness, low back pain with ambulatory difficulties. On admission, it
was reviewed -- the patient's diarrhea is likely from prior. He has chronic incontinence with pencil-like stool. She does not have watery diarrhea. She has no evidence of dehydration. She had been placed on Augmentin for abdominal cramps after
discussing with PMD few days ago. She had no fevers or chills, dysuria on admission. She had no signs or symptoms or urinary tract infection on admission. Urinary frequency and incontinence unchanged from prior. Patient shows no focal neurological
deficits on history.
Gen: Continues to remain NAD, AAOx3.
Eyes: EOMI, PERRLA, no scleral icterus.
Neck: supple.
CV: Continues to remain allison, +S1/S2, no m/r/g.
Resp: Remains CTAB anteriorly, no rales, wheezes, or rhonchi.
Abd: +BS, soft, NT, ND
Skin: No rashes.
Neuro: CN 2-12 intact, non-focal.
Psych: normal mood and affect.
CT A/P w/IV+PO:
1. Possible inflammatory bowel disease of the terminal ileum such as Crohn's. Peristalsis cannot be excluded�new mild left adrenal mass
2. Persistent mild nondistention of the rectosigmoid region mass cannot be excluded
3. Cystic pancreatic masses previously evaluated on MRI showed only a mass in pancreatic head no malignancy
4. Stable left adrenal mass noted to be benign adenoma by MRI
5. Diverticulosis no diverticulitis
CT head: No acute intracranial normality. Mild atrophy.
Colonoscopy 12/16/23: The examined portion of the ileum was normal. Biopsied. One 4 mm polyp at the ileocecal valve, removed with a cold snare. Resected and retrieved. Diverticulosis in the sigmoid colon. Non-bleeding internal hemorrhoids. Biopsies
were taken with a cold forceps from the right colon and left colon for evaluation of microscopic colitis.
Ongoing diarrhea:
-concern for inflammatory bowel disease/Rectosigmoid region mild distention cannot rule out mass based on imaging on admission
-Had been taking Augmentin for diverticulitis by PCP (stopped as no diverticulitis on CT)
-Holding MgO as that can cause diarrhea
-C diff NEG, stool Cx NEG
-GI following
-Colonoscopy 12/16/23 above, fairly unremarkable. Bleeding could have been done due to diverticula or internal hemorrhoids. Follow biopsy pathology.
-cont Heparin/Coumadin bridge (7.5mg coumadin tonight)
Generalized Weakness:
-with lightheadedness
-ECG, CT brain, orthostatic VS on 12/13/23 all NEG
-PT/OT
PAF:
-cont Heparin/Coumadin bridge (7.5mg coumadin tonight)
-h/o s/p mechanical AVR 2009
Chronic osteoarthritis, spinal disease with acute on chronic lumbar back pain right side/rib pain due to musculoskeletal strain
-h/o lumbar epidural/lumbar rhizotomy left-sided
-Patient follows with pain management Dr. Segura in [place] is due for right-sided epidural
-Lidoderm patch to right rib
-Pain control
-PT/OT
Other problems:
Mild transaminitis, trend
Chronic daily headaches/Retinal migraines
Ischemic optic neuropathy right eye
Acute on chronic bilateral knee pain with ambulatory dysfunction, h/o bilateral knee replacements
Chronic Iron deficiency, pt reports has appointment end of December with Dr. Cortez for iron infusion
Essential HTN: cont Losartan
h/o Hypomagnesemia
Chronic urinary incontinence
h/o LBBB
h/o transient heart block/SSS
h/o CVA: cont ASA/statin
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
Chronic HFpEF: cont Lasix
DM2: a1c 6.4%, cont Lantus/SSI/accuchecks
HLD: cont statin
GERD: Cont PPI
Obesity due to excess calories: encourage wt loss, affects all aspects of care
FULL/heparin gtt
Anticipated Discharge: Within 24 hours
Subjective/Interval History
-
Date of Service: December 19, 2023
No new complaints.
Objective Data
-
Labs:
Laboratory Results
12/18/23 12/19/23
22:25 05:14
PT 22.9 H
INR 2.04
APTT 93.1 H 93.1 H
Vital Signs:
Vital Signs
Temp Pulse Resp BP Pulse Ox
97.7 F 47 18 135/54 98
12/19/23 07:00 12/19/23 07:00 12/19/23 07:00 12/19/23 07:00 12/19/23 07:00
I&O
12/18/23 12/19/23 12/20/23
06:59 06:59 06:59
Intake Total 960 / 960 480 / 480
Balance 960 / 960 480 / 480
[2023-12-19] MEDS: LANTUS 0.0599999999999999978 UNITS SC (08:09)
[2023-12-19] MEDS: NOVOLOG FLEXPEN-LOW RESISTANCE SC (08:12)
[2023-12-19] MEDS: COZAAR 50 MG PO ×2 (08:13→19:53)
[2023-12-19] MEDS: COSOPT EYE DROPS 1 DROP BOTH EYES ×2 (08:13→19:53)
[2023-12-19] MEDS: LASIX 20 MG PO (08:14)
[2023-12-19] MEDS: KCL 20 MEQ PO (08:14)
[2023-12-19] MEDS: PROTONIX 40 MG PO (08:14)
[2023-12-19] MEDS: LOW STRENGTH ASPIRIN 81 MG PO (08:14)
[2023-12-19] MEDS: CRESTOR 20 MG PO (08:14)
--- NOTE | 2023-12-19 09:33 | W.PN.CD ---
Today's Communication / Plan
-
Continue bridge
Impression / Plan
-
78 yo female with PMH of mechanical AVR (2009), paroxysmal A fib, on warfarin, prior retinal artery occlusion, chronic HFPEF, HTN is admitted for evaluation for diarrhea. She has no cardiac complaints. She is admitted because she will need heparin
bridge while INR sub-therapeutic.
# Mechanical AVR INR now rising goal 2.5-3.5
-also with paroxysmal A fib and embolic event
-at home takes coumadin and ASA 81mg, with INR goal 2.5-3.5
-high risk for holding coumadin given paroxysmal A fib and embolic event
-given prior history of post c scope gi bleeding, using heparin gtt to bridge post procedure
-warfarin restarted and remains on heparin gtt
-requires monitoring of PTT and Hgb
# Sinus allison, LBBB
-HR 40s-60s on monitor, no advanced heart block. Occasional PVC's. No prolonged pauses.
-she reports dizziness/weakness: Not likely from HR 40s, but will continue to monitor while she is here
-will pursue op EP evaluation with Dr Marquez. Discussed with her ongoing eval of bradycardia and she understands will be seen as outpt.
# Chronic HFPEF
-appears euvolemic: cont PO Lasix
# Paroxysmal A fib
-stable in sinus allison with LBBB; not on AV ryan agent due to bradycardia
-plan for AC as above
# HTN
-BP is at goal: continue losartan
Subjective:
No cardiac complaints
Physical Exam
Vital Signs/Labs
Vital Signs
Temp Pulse Resp BP Pulse Ox
97.7 F 47 18 135/54 98
12/19/23 07:00 12/19/23 08:14 12/19/23 07:00 12/19/23 08:14 12/19/23 07:00
12/18/23 12/19/23 12/20/23
06:59 06:59 06:59
Actual Weight 165 lb 1 oz 165 lb 12.8 oz
12/18/23 05:38
12/16/23 05:32
PT 22.9 Sec (11.4-14.6) H 12/19/23 05:14
INR 2.04 12/19/23 05:14
APTT 93.1 Sec (23.4-35.0) H 12/19/23 05:14
Magnesium 2.0 mg/dl (1.6-2.3) 12/19/23 05:14
12/13/23
14:36
Rzf-C-Hynfwpryqeb Pept 263
Physical Exam
Constitutional: No acute distress
EENT: Anicteric
Cardiovascular: Rhythm & rate is regular
Respiratory: Respiratory effort normal and Lungs clear to auscul.
GI: Soft
Neuro/Psych: AO x 3
Data Reviewed
-
Date of Service: December 19, 2023
Medical Decision Making: Reviewed Test Results
EKG: Tracing Personally Visualized and interpreted (sr)
Labs: Labs Reviewed by me
[2023-12-19 11:00] VITALS: BP 117/51
[2023-12-19] MEDS: TYLENOL 650 MG PO ×2 (11:26→17:54)
[2023-12-19 11:56] LABS: Glucose - Point of Care 156 mg/dl (70-99)
[2023-12-19] MEDS: NOVOLOG FLEXPEN-LOW RESISTANCE 1 UNITS SC ×2 (12:34→17:50)
[2023-12-19 15:05] VITALS: BP 136/49
--- NOTE | 2023-12-19 15:14 | PTCARENOTE ---
patient noted to have scant blood in her stool and feeling weak. no s/s of distress noted. aware. no new orders at this time. Continue to monitor per md. plan of care ongoing. vs stable and documented.
[2023-12-19 17:07] LABS: Glucose - Point of Care 152 mg/dl (70-99)
[2023-12-19] MEDS: HEPARIN 25000 UNITS/250 ML IV (17:42)
[2023-12-19] MEDS: COUMADIN 7.5 MG PO (17:51)
[2023-12-19 19:39] VITALS: BP 134/49
[2023-12-19] MEDS: XALATAN OPHTHALMIC SOLUTION 1 DROP BOTH EYES (19:57)
[2023-12-19 22:34] LABS: Glucose - Point of Care 241 mg/dl (70-99)
[2023-12-19 23:17] VITALS: BP 139/49
[2023-12-20] MEDS: TYLENOL 650 MG PO (03:10)
[2023-12-20 03:21] VITALS: BP 133/56
[2023-12-20 06:00] VITALS: BMI 29.4
[2023-12-20 06:21] LABS: Hematocrit 34.1 % (37.0-47.0); Hemoglobin 11.3 g/dL (12.0-16.0); Mean Corp Hgb Conc. 33.1 g/dL (33.0-37.0); Mean Corpuscular Hgb 28.3 pg (27.0-31.0); Mean Corpuscular Volume 85.5 fL (81.0-99.0); Mean Platelet Volume 10.4 fL (7.4-10.4); Platelet Count 223 10^3/uL (130-400); Red Blood Cell Count 3.99 10^6/uL (4.20-5.40); White Blood Cell Count 5.5 10^3/uL (4.8-10.8)
[2023-12-20 06:27] LABS: INR 3.11
[2023-12-20 06:29] LABS: APTT 115.2 Sec (23.4-35.0)
[2023-12-20 06:56] LABS: Glucose - Point of Care 136 mg/dl (70-99)
[2023-12-20 07:00] VITALS: BP 131/49
--- NOTE | 2023-12-20 07:37 | W.PN.HOSP.TC ---
Today's Communication/Plan
-
continue to monitor for recurrent hematochezia
Assessment / Plan
Assessment / Plan
78-year-old with multiple medical problems including history of diverticulitis, hypertension, hyperlipidemia, chronic paretic cyst, diabetes and atrial fibrillation as well chronic osteoarthritis status post bilateral knee replacement, degenerative
disc disease of the lumbosacral spine, history of duodenal bleeding gastric ectasia presented to the emergency department with the immediate of complaints but mostly diarrhea, weakness, low back pain with ambulatory difficulties. On admission, it
was reviewed -- the patient's diarrhea is likely from prior. He has chronic incontinence with pencil-like stool. She does not have watery diarrhea. She has no evidence of dehydration. She had been placed on Augmentin for abdominal cramps after
discussing with PMD few days ago. She had no fevers or chills, dysuria on admission. She had no signs or symptoms or urinary tract infection on admission. Urinary frequency and incontinence unchanged from prior. Patient shows no focal neurological
deficits on history.
Gen: NAD, AAOx3.
Eyes: EOMI, PERRLA, no scleral icterus.
Neck: supple.
CV: allison, +S1/S2, no m/r/g.
Resp: CTAB anteriorly, no rales, wheezes, or rhonchi.
Abd: +BS, soft, NT, ND
Skin: No rashes.
Neuro: CN 2-12 intact, non-focal.
Psych: normal mood and affect.
CT A/P w/IV+PO:
1. Possible inflammatory bowel disease of the terminal ileum such as Crohn's. Peristalsis cannot be excluded�new mild left adrenal mass
2. Persistent mild nondistention of the rectosigmoid region mass cannot be excluded
3. Cystic pancreatic masses previously evaluated on MRI showed only a mass in pancreatic head no malignancy
4. Stable left adrenal mass noted to be benign adenoma by MRI
5. Diverticulosis no diverticulitis
CT head: No acute intracranial normality. Mild atrophy.
Colonoscopy 12/16/23: The examined portion of the ileum was normal. Biopsied. One 4 mm polyp at the ileocecal valve, removed with a cold snare. Resected and retrieved. Diverticulosis in the sigmoid colon. Non-bleeding internal hemorrhoids. Biopsies
were taken with a cold forceps from the right colon and left colon for evaluation of microscopic colitis.
Ongoing diarrhea:
-concern for inflammatory bowel disease/Rectosigmoid region mild distention cannot rule out mass based on imaging on admission
-Had been taking Augmentin for diverticulitis by PCP (stopped as no diverticulitis on CT)
-Holding MgO as that can cause diarrhea
-C diff NEG, stool Cx NEG
-GI following
-Colonoscopy 12/16/23 above, fairly unremarkable. Bleeding could have been done due to diverticula or internal hemorrhoids. Path NEG for malignancy, granulomas, acute colitis, etc.
-INR 3.11, stop heparin gtt, hold coumadin tonight
-with hematochezia continue to monitor for recurrent bleeding for another 24 hours, discussed with GI
Generalized Weakness:
-with lightheadedness
-ECG, CT brain, orthostatic VS on 12/13/23 all NEG
-PT/OT
PAF:
-INR 3.11, stop heparin gtt, hold coumadin tonight
-h/o s/p mechanical AVR 2009
Chronic osteoarthritis, spinal disease with acute on chronic lumbar back pain right side/rib pain due to musculoskeletal strain
-h/o lumbar epidural/lumbar rhizotomy left-sided
-Patient follows with pain management Dr. Segura in [place] is due for right-sided epidural
-Lidoderm patch to right rib
-Pain control
-PT/OT
Other problems:
Mild transaminitis, trend
Chronic daily headaches/Retinal migraines
Ischemic optic neuropathy right eye
Acute on chronic bilateral knee pain with ambulatory dysfunction, h/o bilateral knee replacements
Chronic Iron deficiency, pt reports has appointment end of December with Dr. Cortez for iron infusion
Essential HTN: cont Losartan
h/o Hypomagnesemia
Chronic urinary incontinence
h/o LBBB
h/o transient heart block/SSS
h/o CVA: cont ASA/statin
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
Chronic HFpEF: cont Lasix
DM2: a1c 6.4%, cont Lantus/SSI/accuchecks
HLD: cont statin
GERD: Cont PPI
Obesity due to excess calories: encourage wt loss, affects all aspects of care
FULL/therapeutic INR
Anticipated Discharge: Within 24 hours
Subjective/Interval History
-
Date of Service: December 20, 2023
Hematochezia yesterday, less so today.
Objective Data
-
Labs:
Laboratory Results
12/20/23 12/20/23
05:43 13:15
WBC 5.5
Hgb 11.3 L
Hct 34.1 L
Plt Count 223
PT 32.0 H
INR 3.11
APTT 115.2 H Pending
Vital Signs:
Vital Signs
Temp Pulse Resp BP Pulse Ox
98.0 F 46 16 131/49 96
12/20/23 07:00 12/20/23 07:00 12/20/23 07:00 12/20/23 07:00 12/20/23 07:00
I&O
12/19/23 12/20/23 12/21/23
06:59 06:59 06:59
Intake Total 480 / 480 1860 / 1860
Output Total 175 / 175
Balance 480 / 480 1685 / 1685
[2023-12-20] MEDS: KCL 20 MEQ PO (08:09)
[2023-12-20] MEDS: PROTONIX 40 MG PO (08:09)
[2023-12-20] MEDS: LANTUS 0.0599999999999999978 UNITS SC (08:09)
[2023-12-20] MEDS: LOW STRENGTH ASPIRIN 81 MG PO (08:09)
[2023-12-20] MEDS: COZAAR 50 MG PO ×2 (08:10→20:31)
[2023-12-20] MEDS: LASIX 20 MG PO (08:10)
[2023-12-20] MEDS: CRESTOR 20 MG PO (08:10)
[2023-12-20] MEDS: NOVOLOG FLEXPEN-LOW RESISTANCE SC ×2 (08:11→12:43)
[2023-12-20] MEDS: COSOPT EYE DROPS 1 DROP BOTH EYES ×2 (08:11→20:30)
--- NOTE | 2023-12-20 09:17 | W.PN.CD ---
Today's Communication / Plan
-
Monitor hemoglobin
INR therapeutic holding tonight's warfarin
Impression / Plan
-
78 yo female with PMH of mechanical AVR (2009), paroxysmal A fib, on warfarin, prior retinal artery occlusion, chronic HFPEF, HTN is admitted for evaluation for diarrhea. She has no cardiac complaints. She is admitted now s/p colonoscopy and INR
at goal. However, developed hematochezia yesterday.
Hematochezia
- continue CBC monitoring, Hgb 11.3 December 19
- GI consulted
# Mechanical AVR INR now rising goal 2.5-3.5
-also with paroxysmal A fib and embolic event
-at home takes coumadin and ASA 81mg, with INR goal 2.5-3.5
-high risk for holding coumadin INR therapeutic December 19 3.11
-given prior history of post c scope gi bleeding, using heparin gtt to bridge post procedure
-now off heparin
# Sinus allison, LBBB
-HR 40s-60s on monitor, no advanced heart block. Occasional PVC's. No prolonged pauses.
-she reports dizziness/weakness: Not likely from HR 40s, but will continue to monitor while she is here
-will pursue op EP evaluation with Dr Marquez. Discussed with her ongoing eval of bradycardia and she understands will be seen as outpt.
# Chronic HFPEF
-appears euvolemic: cont PO Lasix
# Paroxysmal A fib
-stable in sinus allison with LBBB; not on AV ryan agent due to bradycardia
-plan for AC as above
# HTN
-BP is at goal: continue losartan
Subjective:
Disappointed but understands need to stay
Physical Exam
Vital Signs/Labs
Vital Signs
Temp Pulse Resp BP Pulse Ox
98.0 F 46 16 131/49 96
12/20/23 07:00 12/20/23 08:10 12/20/23 07:00 12/20/23 08:10 12/20/23 07:00
12/19/23 12/20/23 12/21/23
06:59 06:59 06:59
Actual Weight 165 lb 12.8 oz 166 lb 3.2 oz
12/20/23 05:43
12/16/23 05:32
PT 32.0 Sec (11.4-14.6) H 12/20/23 05:43
INR 3.11 12/20/23 05:43
APTT 115.2 Sec (23.4-35.0) H 12/20/23 05:43
Magnesium 2.0 mg/dl (1.6-2.3) 12/20/23 05:43
12/13/23
14:36
[id number] Pept 263
Physical Exam
Constitutional: No acute distress
EENT: Anicteric
Cardiovascular: Rhythm & rate is regular and Pedal edema is absent
Respiratory: Respiratory effort normal and Lungs clear to auscul.
GI: Soft
Neuro/Psych: AO x 3
Data Reviewed
-
Date of Service: December 20, 2023
Medical Decision Making: Reviewed Test Results
EKG: Tracing Personally Visualized and interpreted (sr)
Labs: Labs Reviewed by me
[2023-12-20 11:00] VITALS: BP 137/45
[2023-12-20 11:19] LABS: Glucose - Point of Care 146 mg/dl (70-99)
[2023-12-20 15:15] VITALS: BP 156/55
[2023-12-20 17:07] LABS: Glucose - Point of Care 202 mg/dl (70-99)
[2023-12-20] MEDS: NOVOLOG FLEXPEN-LOW RESISTANCE 2 UNITS SC (18:17)
[2023-12-20 19:21] VITALS: BP 129/52
[2023-12-20] MEDS: XALATAN OPHTHALMIC SOLUTION 1 DROP BOTH EYES (20:30)
[2023-12-20 22:01] LABS: Glucose - Point of Care 209 mg/dl (70-99)
[2023-12-20 23:07] VITALS: BP 135/59
[2023-12-21] VITALS (7 sets, daily range): BP systolic 116–144; BP diastolic 48–64; PULSE 46; O2SAT 95; BMI 29.4
[2023-12-21] MEDS: TYLENOL 650 MG PO ×3 (02:04→23:30)
[2023-12-21 06:19] LABS: Hemoglobin 11.4 g/dL (12.0-16.0); Mean Corp Hgb Conc. 32.6 g/dL (33.0-37.0); Mean Corpuscular Hgb 28.6 pg (27.0-31.0); Mean Corpuscular Volume 87.9 fL (81.0-99.0); Mean Platelet Volume 10.3 fL (7.4-10.4); Platelet Count 226 10^3/uL (130-400); Red Blood Cell Count 3.98 10^6/uL (4.20-5.40); White Blood Cell Count 7.5 10^3/uL (4.8-10.8)
[2023-12-21 06:47] LABS: INR 3.83; PT 37.7 Sec (11.4-14.6)
[2023-12-21 06:54] LABS: Blood Urea Nitrogen 39 mg/dl (7-17); Calcium 9.7 mg/dl (8.4-10.2); Carbon Dioxide 22 mmol/L (22-30); Chloride 108 mmol/L (98-107); Estimated Creatinine Clearance 57 ml/min; Glucose 142 mg/dl (70-99); Potassium 4.4 mmol/L (3.5-5.1); Sodium 138 mmol/L (135-145); eGFR > 60.00
[2023-12-21 07:50] LABS: Glucose - Point of Care 124 mg/dl (70-99)
[2023-12-21] MEDS: NOVOLOG FLEXPEN-LOW RESISTANCE SC ×2 (08:03→12:18)
[2023-12-21] MEDS: PROTONIX 40 MG PO (08:22)
[2023-12-21] MEDS: CRESTOR 20 MG PO (08:22)
[2023-12-21] MEDS: LASIX 20 MG PO (08:23)
[2023-12-21] MEDS: COZAAR 50 MG PO ×2 (08:24→19:57)
[2023-12-21] MEDS: LANTUS 0.0599999999999999978 UNITS SC (08:25)
[2023-12-21] MEDS: KCL 20 MEQ PO (08:25)
[2023-12-21] MEDS: COSOPT EYE DROPS 1 DROP BOTH EYES ×2 (08:26→19:57)
[2023-12-21] MEDS: LOW STRENGTH ASPIRIN 81 MG PO (08:26)
--- NOTE | 2023-12-21 08:38 | W.PN.HOSP.TC ---
Today's Communication/Plan
-
Continue hold Coumadin and follow-up H&H and INR as well as any signs of re-bleeding.
Assessment / Plan
Assessment / Plan
78-year-old with multiple medical problems including history of diverticulitis, hypertension, hyperlipidemia, chronic paretic cyst, diabetes and atrial fibrillation as well chronic osteoarthritis status post bilateral knee replacement, degenerative
disc disease of the lumbosacral spine, history of duodenal bleeding gastric ectasia presented to the emergency department with the immediate of complaints but mostly diarrhea, weakness, low back pain with ambulatory difficulties. On admission, it
was reviewed -- the patient's diarrhea is likely from prior. He has chronic incontinence with pencil-like stool. She does not have watery diarrhea. She has no evidence of dehydration. She had been placed on Augmentin for abdominal cramps after
discussing with PMD few days ago. She had no fevers or chills, dysuria on admission. She had no signs or symptoms or urinary tract infection on admission. Urinary frequency and incontinence unchanged from prior. Patient shows no focal neurological
deficits on history.
Gen: NAD, AAOx3.
Eyes: EOMI, PERRLA, no scleral icterus.
Neck: supple.
CV: allison, +S1/S2, no m/r/g.
Resp: CTAB anteriorly, no rales, wheezes, or rhonchi.
Abd: +BS, soft, NT, ND
Skin: No rashes.
Neuro: CN 2-12 intact, non-focal.
Psych: normal mood and affect.
CT A/P w/IV+PO:
1. Possible inflammatory bowel disease of the terminal ileum such as Crohn's. Peristalsis cannot be excluded�new mild left adrenal mass
2. Persistent mild nondistention of the rectosigmoid region mass cannot be excluded
3. Cystic pancreatic masses previously evaluated on MRI showed only a mass in pancreatic head no malignancy
4. Stable left adrenal mass noted to be benign adenoma by MRI
5. Diverticulosis no diverticulitis
CT head: No acute intracranial normality. Mild atrophy.
Colonoscopy 12/16/23: The examined portion of the ileum was normal. Biopsied. One 4 mm polyp at the ileocecal valve, removed with a cold snare. Resected and retrieved. Diverticulosis in the sigmoid colon. Non-bleeding internal hemorrhoids. Biopsies
were taken with a cold forceps from the right colon and left colon for evaluation of microscopic colitis.
Ongoing diarrhea:
-concern for inflammatory bowel disease/Rectosigmoid region mild distention cannot rule out mass based on imaging on admission
-Had been taking Augmentin for diverticulitis by PCP (stopped as no diverticulitis on CT)
-Holding MgO as that can cause diarrhea
-C diff NEG, stool Cx NEG
-GI following although no notes over last few days-->will ask them to formally see if worsening but reeval over the next 24 hrs.
-Colonoscopy 12/16/23 above, fairly unremarkable. Bleeding could have been done due to diverticula or internal hemorrhoids. Path NEG for malignancy, granulomas, acute colitis, etc.
-INR 3.11, stopped heparin gtt, held Coumadin last night--> today INR 3.83. Hemoglobin 11.4 today. Will need to cont hold Coumadin today understanding high risk VTE. Repeat H/H and INR in am.
-with hematochezia yesterday and today decided to continue to monitor for recurrent bleeding for another 24 hours, Dr Morin discussed with GI yesterday.
Generalized Weakness:
-with lightheadedness
-ECG, CT brain, orthostatic VS on 12/13/23 all NEG
-PT/OT
PAF:
-INR 3.11, stopped heparin gtt yesterday, holding Coumadin tonight
-h/o s/p mechanical AVR 2009
-Appreciated cardiology follow-up today
Chronic osteoarthritis, spinal disease with acute on chronic lumbar back pain right side/rib pain due to musculoskeletal strain
-h/o lumbar epidural/lumbar rhizotomy left-sided
-Patient follows with pain management Dr. Segura in [place] is due for right-sided epidural
-Lidoderm patch to right rib
-Pain control
-PT/OT
Other problems:
Mild transaminitis, trend
Chronic daily headaches/Retinal migraines
Ischemic optic neuropathy right eye
Acute on chronic bilateral knee pain with ambulatory dysfunction, h/o bilateral knee replacements
Chronic Iron deficiency, pt reports has appointment end of December with Dr. Cortez for iron infusion
Essential HTN: cont Losartan
h/o Hypomagnesemia
Chronic urinary incontinence
h/o LBBB
h/o transient heart block/SSS
h/o CVA: cont ASA/statin
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
Chronic HFpEF: cont Lasix
DM2: a1c 6.4%, cont Lantus/SSI/accuchecks
HLD: cont statin
GERD: Cont PPI
Obesity due to excess calories: encourage wt loss, affects all aspects of care
FULL/therapeutic INR
Anticipated Discharge: 24 - 48 hours
Subjective/Interval History
-
Date of Service: December 21, 2023
Patient had 3 small bowel movements with blood today and last one dark brown maroonish bowel movement later on. Otherwise denies chest pain or shortness of breath.
Objective Data
-
Labs:
Laboratory Results
12/21/23
05:47
WBC 7.5
Hgb 11.4 L
Hct 35.0 L
Plt Count 226
PT 37.7 H
INR 3.83
Sodium 138
Potassium 4.4
Chloride 108 H
Carbon Dioxide 22
BUN 39 H
Creatinine 0.8
Glucose 142 H
Calcium 9.7
Vital Signs:
Vital Signs
Temp Pulse Resp BP Pulse Ox
98.1 F 46 16 144/64 98
12/21/23 07:00 12/21/23 08:24 12/21/23 07:00 12/21/23 08:24 12/21/23 07:00
I&O
12/20/23 12/21/23 12/22/23
06:59 06:59 06:59
Intake Total 1860 / 1860 880 / 880
Output Total 175 / 175 1000 / 1000
Balance 1685 / 1685 -120 / -120
Review of Systems
-
All other systems: Reviewed and negative
--- NOTE | 2023-12-21 09:54 | W.PN.CD ---
Today's Communication / Plan
-
OOB and ambulate
Impression / Plan
-
78 yo female with PMH of mechanical AVR (2009), paroxysmal A fib, on warfarin, prior retinal artery occlusion, chronic HFPEF, HTN is admitted for evaluation for diarrhea. She has no cardiac complaints. She is admitted now s/p colonoscopy and INR
at goal. However, developed hematochezia yesterday.
Hematochezia
- continue CBC monitoring, Hgb 11.3 December 19
- GI consulted, no BM at this point
# Mechanical AVR INR now rising goal 2.5-3.5
-also with paroxysmal A fib and embolic event
-at home takes coumadin and ASA 81mg, with INR goal 2.5-3.5
-high risk for holding coumadin INR therapeutic December 20 3.8
-given prior history of post c scope gi bleeding, using heparin gtt to bridge post procedure
-now off heparin
# Sinus allison, LBBB
-HR 40s-60s on monitor, no advanced heart block. Occasional PVC's. No prolonged pauses.
-she reports dizziness/weakness: Not likely from HR 40s, but will continue to monitor while she is here
-will pursue op EP evaluation with Dr Marquez. Discussed with her ongoing eval of bradycardia and she understands will be seen as outpt.
# Chronic HFPEF
-appears euvolemic: cont PO Lasix
# Paroxysmal A fib
-stable in sinus allison with LBBB; not on AV ryan agent due to bradycardia
-plan for AC as above
# HTN
-BP is at goal: continue losartan
Subjective:
Continues to feel OK
Physical Exam
Vital Signs/Labs
Vital Signs
Temp Pulse Resp BP Pulse Ox
98.1 F 46 16 144/64 98
12/21/23 07:00 12/21/23 08:24 12/21/23 07:00 12/21/23 08:24 12/21/23 07:00
12/20/23 12/21/23 12/22/23
06:59 06:59 06:59
Actual Weight 166 lb 3.2 oz 166 lb 1.6 oz
12/21/23 05:47
12/21/23 05:47
PT 37.7 Sec (11.4-14.6) H 12/21/23 05:47
INR 3.83 12/21/23 05:47
APTT 44.0 Sec (23.4-35.0) H 12/20/23 12:37
Magnesium 2.0 mg/dl (1.6-2.3) 12/20/23 05:43
12/13/23
14:36
[id number]-[id number] Pept 263
Physical Exam
Constitutional: No acute distress
EENT: Anicteric
Cardiovascular: Rhythm & rate is regular and Pedal edema is absent
Respiratory: Respiratory effort normal and Lungs clear to auscul.
GI: Soft
Neuro/Psych: AO x 3
Data Reviewed
-
Date of Service: December 21, 2023
EKG: Tracing Personally Visualized and interpreted (sr)
Labs: Labs Reviewed by me
[2023-12-21 12:13] LABS: Glucose - Point of Care 145 mg/dl (70-99)
--- NOTE | 2023-12-21 13:15 | PTCARENOTE ---
MD made aware of patient having 2 small, blood tinged bowel movements into toilet; Coumadin continuing to be held, repeat blood work ordered for AM. Patient states no complaints at this time.
[2023-12-21 17:14] LABS: Glucose - Point of Care 163 mg/dl (70-99)
[2023-12-21] MEDS: NOVOLOG FLEXPEN-LOW RESISTANCE 1 UNITS SC (17:54)
[2023-12-21] MEDS: XALATAN OPHTHALMIC SOLUTION 1 DROP BOTH EYES (19:57)
[2023-12-21 21:33] LABS: Glucose - Point of Care 186 mg/dl (70-99)
[2023-12-22 03:12] VITALS: BP 111/48
[2023-12-22 05:43] VITALS: BMI 29.4
[2023-12-22 06:00] VITALS: BMI 29.4
[2023-12-22 06:28] LABS: Hematocrit 37.5 % (37.0-47.0); Hemoglobin 12.2 g/dL (12.0-16.0); Mean Corp Hgb Conc. 32.5 g/dL (33.0-37.0); Mean Corpuscular Hgb 28.4 pg (27.0-31.0); Mean Corpuscular Volume 87.2 fL (81.0-99.0); Mean Platelet Volume 10.3 fL (7.4-10.4); Platelet Count 240 10^3/uL (130-400); Red Cell Dist. Width 14.2 % (11.5-14.5)
[2023-12-22 06:36] LABS: INR 3.03; PT 31.3 Sec (11.4-14.6)
[2023-12-22 07:10] VITALS: BP 118/43
[2023-12-22 07:24] LABS: Glucose - Point of Care 138 mg/dl (70-99)
[2023-12-22] MEDS: NOVOLOG FLEXPEN-LOW RESISTANCE SC ×2 (07:25→12:23)
--- NOTE | 2023-12-22 08:00 | W.PN.HOSP.TC ---
Today's Communication/Plan
-
Restart Coumadin today.
Assessment / Plan
Assessment / Plan
78-year-old with multiple medical problems including history of diverticulitis, hypertension, hyperlipidemia, chronic paretic cyst, diabetes and atrial fibrillation as well chronic osteoarthritis status post bilateral knee replacement, degenerative
disc disease of the lumbosacral spine, history of duodenal bleeding gastric ectasia presented to the emergency department with the immediate of complaints but mostly diarrhea, weakness, low back pain with ambulatory difficulties. On admission, it
was reviewed -- the patient's diarrhea is likely from prior. He has chronic incontinence with pencil-like stool. She does not have watery diarrhea. She has no evidence of dehydration. She had been placed on Augmentin for abdominal cramps after
discussing with PMD few days ago. She had no fevers or chills, dysuria on admission. She had no signs or symptoms or urinary tract infection on admission. Urinary frequency and incontinence unchanged from prior. Patient shows no focal neurological
deficits on history.
Gen: NAD, AAOx3.
Eyes: EOMI, PERRLA, no scleral icterus.
Neck: supple.
CV: allison, +S1/S2, no m/r/g.
Resp: CTAB anteriorly, no rales, wheezes, or rhonchi.
Abd: +BS, soft, NT, ND
Skin: No rashes.
Neuro: CN 2-12 intact, non-focal.
Psych: normal mood and affect.
CT A/P w/IV+PO:
1. Possible inflammatory bowel disease of the terminal ileum such as Crohn's. Peristalsis cannot be excluded�new mild left adrenal mass
2. Persistent mild nondistention of the rectosigmoid region mass cannot be excluded
3. Cystic pancreatic masses previously evaluated on MRI showed only a mass in pancreatic head no malignancy
4. Stable left adrenal mass noted to be benign adenoma by MRI
5. Diverticulosis no diverticulitis
CT head: No acute intracranial normality. Mild atrophy.
Colonoscopy 12/16/23: The examined portion of the ileum was normal. Biopsied. One 4 mm polyp at the ileocecal valve, removed with a cold snare. Resected and retrieved. Diverticulosis in the sigmoid colon. Non-bleeding internal hemorrhoids. Biopsies
were taken with a cold forceps from the right colon and left colon for evaluation of microscopic colitis.
Ongoing diarrhea:
-concern for inflammatory bowel disease/Rectosigmoid region mild distention cannot rule out mass based on imaging on admission
-Had been taking Augmentin for diverticulitis by PCP (stopped as no diverticulitis on CT)
-Holding MgO as that can cause diarrhea
-C diff NEG, stool Cx NEG
-GI following although no notes over last few days-->will ask them to formally see if worsening but reeval over the next 24 hrs.
-Colonoscopy 12/16/23 above, fairly unremarkable. Bleeding could have been done due to diverticula or internal hemorrhoids. Path NEG for malignancy, granulomas, acute colitis, etc.
-INR 3.11, stopped heparin gtt, held Coumadin last night--> today INR 3.03. Hemoglobin 12.2 today. Will need to restart Coumadin tonight since she is high risk VTE. Repeat H/H and INR in am.
-No further episodes hematochezia.
Generalized Weakness:
-with lightheadedness
-ECG, CT brain, orthostatic VS on 12/13/23 all NEG
-PT/OT
PAF:
-INR 3.03 stopped heparin gtt day before yesterday, restarting Coumadin tonight at 2.5 mg
-h/o s/p mechanical AVR 2009
-Appreciated cardiology follow-up today
Chronic osteoarthritis, spinal disease with acute on chronic lumbar back pain right side/rib pain due to musculoskeletal strain
-h/o lumbar epidural/lumbar rhizotomy left-sided
-Patient follows with pain management Dr. Segura in [place] is due for right-sided epidural
-Lidoderm patch to right rib
-Pain control
-PT/OT
Other problems:
Mild transaminitis, trend
Chronic daily headaches/Retinal migraines
Ischemic optic neuropathy right eye
Acute on chronic bilateral knee pain with ambulatory dysfunction, h/o bilateral knee replacements
Chronic Iron deficiency, pt reports has appointment end of December with Dr. Cortez for iron infusion
Essential HTN: cont Losartan
h/o Hypomagnesemia
Chronic urinary incontinence
h/o LBBB
h/o transient heart block/SSS
h/o CVA: cont ASA/statin
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
Chronic HFpEF: cont Lasix
DM2: a1c 6.4%, cont Lantus/SSI/accuchecks
HLD: cont statin
GERD: Cont PPI
Obesity due to excess calories: encourage wt loss, affects all aspects of care
FULL/therapeutic INR
Anticipated Discharge: 24 - 48 hours
Subjective/Interval History
-
Date of Service: December 22, 2023
Patient had bowel movement and no blood. No chest pain or shortness of breath
Objective Data
-
Labs:
Laboratory Results
12/22/23
05:35
WBC 6.0
Hgb 12.2
Hct 37.5
Plt Count 240
PT 31.3 H
INR 3.03
Vital Signs:
Vital Signs
Temp Pulse Resp BP Pulse Ox
97.6 F 44 18 111/48 98
12/22/23 03:12 12/22/23 03:12 12/22/23 03:12 12/22/23 03:12 12/22/23 03:12
I&O
12/21/23 12/22/23 12/23/23
06:59 06:59 06:59
Intake Total 880 / 880 2019
Output Total 1000 / 1000 850 / 850
Balance -120 / -120 1170 / 1170
[2023-12-22] MEDS: LANTUS 0.0599999999999999978 UNITS SC (08:19)
[2023-12-22] MEDS: KCL 20 MEQ PO (08:19)
[2023-12-22] MEDS: LOW STRENGTH ASPIRIN 81 MG PO (08:19)
[2023-12-22] MEDS: CRESTOR 20 MG PO (08:19)
[2023-12-22] MEDS: COZAAR 50 MG PO ×2 (08:20→20:39)
[2023-12-22] MEDS: PROTONIX 40 MG PO (08:20)
[2023-12-22] MEDS: COSOPT EYE DROPS 1 DROP BOTH EYES ×2 (08:20→20:40)
[2023-12-22] MEDS: LASIX 20 MG PO (08:23)
--- NOTE | 2023-12-22 09:01 | W.PN.CD ---
Today's Communication / Plan
-
warfarin 2.5mg tonight
Impression / Plan
-
78 yo female with PMH of mechanical AVR (2009), paroxysmal A fib, on warfarin, prior retinal artery occlusion, chronic HFPEF, HTN is admitted for evaluation for diarrhea. She has no cardiac complaints. She is admitted now s/p colonoscopy and INR
at goal. However, developed hematochezia yesterday.
Hematochezia
- continue CBC monitoring, Hgb stable
- GI consulted, no BM at this point
# Mechanical AVR INR now rising goal 2.5-3.5
-also with paroxysmal A fib and embolic event
-at home takes coumadin and ASA 81mg, with INR goal 2.5-3.5
-high risk for holding coumadin INR therapeutic December 21 3.0---Will give warfarin 2.5mg tonight.
-given prior history of post c scope gi bleeding, using heparin gtt to bridge post procedure
-now off heparin
# Sinus allison, LBBB
-HR 40s-60s on monitor, no advanced heart block. Occasional PVC's. No prolonged pauses.
-she reports dizziness/weakness: Not likely from HR 40s, but will continue to monitor while she is here
-will pursue op EP evaluation with Dr Marquez. Discussed with her ongoing eval of bradycardia and she understands will be seen as outpt.
-no clear indication for a ppm
# Chronic HFPEF
-appears euvolemic: cont PO Lasix
# Paroxysmal A fib
-stable in sinus allison with LBBB; not on AV ryan agent due to bradycardia
-plan for AC as above
# HTN
-BP is at goal: continue losartan
Subjective:
no complaints anxious for bm to go home
Physical Exam
Vital Signs/Labs
Vital Signs
Temp Pulse Resp BP Pulse Ox
97.6 F 54 18 118/43 98
12/22/23 03:12 12/22/23 08:20 12/22/23 03:12 12/22/23 08:20 12/22/23 03:12
12/21/23 12/22/23 12/23/23
06:59 06:59 06:59
Actual Weight 75.342 kg 75.251 kg
12/22/23 05:35
12/21/23 05:47
PT 31.3 Sec (11.4-14.6) H 12/22/23 05:35
INR 3.03 12/22/23 05:35
APTT 44.0 Sec (23.4-35.0) H 12/20/23 12:37
Magnesium 2.0 mg/dl (1.6-2.3) 12/20/23 05:43
12/13/23
14:36
[id number]-[id number]-Zrafhtioyzk Pept 263
Physical Exam
Constitutional: No acute distress
Cardiovascular: Rhythm & rate is regular, Pedal edema is absent, JVD pressure is normal and S1S2 is normal (mechanical S2)
Respiratory: Respiratory effort normal, Lungs clear to auscul., Wheeze Absent, Crackles Absent and Rhonchi Absent
Neuro/Psych: AO x 3
Data Reviewed
-
Date of Service: December 22, 2023
EKG: Other (tele sinus allison no chb or loong pauses)
[2023-12-22 11:03] VITALS: BP 113/50
[2023-12-22 12:31] LABS: Glucose - Point of Care 129 mg/dl (70-99)
[2023-12-22 15:00] VITALS: BP 129/52
[2023-12-22 17:10] LABS: Glucose - Point of Care 211 mg/dl (70-99)
[2023-12-22] MEDS: COUMADIN 2.5 MG PO (17:25)
[2023-12-22] MEDS: NOVOLOG FLEXPEN-LOW RESISTANCE 2 UNITS SC (17:26)
--- NOTE | 2023-12-22 17:51 | CM ---
PT OT pt demonstrated no skilled need.
Pt had requested [facility] . As per care port accepted.
Family to transport home.
PLAN Home with [facility]
[2023-12-22 19:26] VITALS: BP 129/49
[2023-12-22] MEDS: TYLENOL 650 MG PO (20:39)
[2023-12-22 21:33] LABS: Glucose - Point of Care 191 mg/dl (70-99)
[2023-12-22] MEDS: XALATAN OPHTHALMIC SOLUTION 1 DROP BOTH EYES (21:52)
[2023-12-22 23:19] VITALS: BP 107/59
[2023-12-23 03:26] VITALS: BP 105/44
[2023-12-23 06:00] VITALS: BMI 29.3
[2023-12-23 06:20] LABS: Hematocrit 36.2 % (37.0-47.0); Hemoglobin 11.6 g/dL (12.0-16.0); Mean Corpuscular Hgb 28.5 pg (27.0-31.0); Mean Corpuscular Volume 88.9 fL (81.0-99.0); Mean Platelet Volume 10.6 fL (7.4-10.4); Platelet Count 197 10^3/uL (130-400); Red Blood Cell Count 4.07 10^6/uL (4.20-5.40); Red Cell Dist. Width 14.1 % (11.5-14.5); White Blood Cell Count 6.4 10^3/uL (4.8-10.8)
[2023-12-23 06:30] LABS: INR 2.64; PT 28.1 Sec (11.4-14.6)
[2023-12-23 07:05] VITALS: BP 111/49
[2023-12-23 08:02] LABS: Glucose - Point of Care 152 mg/dl (70-99)
--- NOTE | 2023-12-23 08:16 | W.PN.CD ---
Today's Communication / Plan
-
home on warfarin 5mg then 2.5 mg tomorrow and INR check Thursday
Impression / Plan
-
78 yo female with PMH of mechanical AVR (2009), paroxysmal A fib, on warfarin, prior retinal artery occlusion, chronic HFPEF, HTN is admitted for evaluation for diarrhea. She has no cardiac complaints. She is admitted now s/p colonoscopy and INR
at goal. However, developed hematochezia yesterday.
Hematochezia
- continue CBC monitoring, Hgb stable
- GI consulted, no BM at this point
-she reports a normal bowel moviement
# Mechanical AVR INR now rising goal 2.5-3.5
-also with paroxysmal A fib and embolic event
-at home takes coumadin and ASA 81mg, with INR goal 2.5-3.5
-high risk for holding coumadin INR therapeutic December 22 2.6---Will give warfarin 5 mg tonight, 2.5mg tomorrow and INR Thursday--d/w our coumadin clinic
# Sinus allison, LBBB
-HR 40s-60s on monitor, no advanced heart block. Occasional PVC's. No prolonged pauses.
-she reports dizziness/weakness: Not likely from HR 40s, but will continue to monitor while she is here
-will pursue op EP evaluation with Dr Marquez. Discussed with her ongoing eval of bradycardia and she understands will be seen as outpt--appt made
-no clear indication for a ppm
# Chronic HFPEF
-appears euvolemic: cont PO Lasix
# Paroxysmal A fib
-stable in sinus allison with LBBB; not on AV ryan agent due to bradycardia
-plan for AC as above
# HTN
-BP is at goal: continue losartan
Subjective:
no complaints reports a normal bm
Physical Exam
Vital Signs/Labs
Vital Signs
Temp Pulse Resp BP Pulse Ox
97.9 F 44 18 105/44 96
05/22/24 03:26 12/23/23 03:26 12/23/23 03:26 12/23/23 03:26 12/23/23 03:26
12/22/23 12/23/23 12/24/23
06:59 06:59 06:59
Actual Weight 75.251 kg 74.979 kg
12/23/23 05:19
12/21/23 05:47
PT 28.1 Sec (11.4-14.6) H 12/23/23 05:19
INR 2.64 12/23/23 05:19
APTT 44.0 Sec (23.4-35.0) H 12/20/23 12:37
Magnesium 2.0 mg/dl (1.6-2.3) 12/20/23 05:43
12/13/23
14:36
Zou-G-Lslygjqwpev Pept 263
Physical Exam
Constitutional: No acute distress
Cardiovascular: Rhythm & rate is regular, Pedal edema is absent and S1S2 is normal (mechanical A2)
Respiratory: Respiratory effort normal, Lungs clear to auscul., Wheeze Absent and Crackles Absent
Neuro/Psych: AO x 3
Data Reviewed
-
Date of Service: December 23, 2023
EKG: Other (tele with sinus bradycardia and pvcs)
[2023-12-23] MEDS: LOW STRENGTH ASPIRIN 81 MG PO (08:31)
[2023-12-23] MEDS: LANTUS 0.0599999999999999978 UNITS SC (08:31)
[2023-12-23] MEDS: COSOPT EYE DROPS 1 DROP BOTH EYES (08:31)
[2023-12-23] MEDS: CRESTOR 20 MG PO (08:31)
[2023-12-23] MEDS: PROTONIX 40 MG PO (08:31)
[2023-12-23] MEDS: KCL 20 MEQ PO (08:31)
[2023-12-23] MEDS: NOVOLOG FLEXPEN-LOW RESISTANCE 1 UNITS SC (08:32)
[2023-12-23] MEDS: COZAAR 50 MG PO (08:32)
[2023-12-23] MEDS: LASIX 20 MG PO (08:32)
--- NOTE | 2023-12-23 08:43 | W.PN.HOSP.TC ---
Addendum entered and electronically signed by Rainer Thmoas MD 12/23/23 16:06:
Yes, gastrointestinal bleed is related to/associated with/enhanced by warfarin.
Original Note:
Today's Communication/Plan
-
Discharge planning today.
Assessment / Plan
Assessment / Plan
78-year-old with multiple medical problems including history of diverticulitis, hypertension, hyperlipidemia, chronic paretic cyst, diabetes and atrial fibrillation as well chronic osteoarthritis status post bilateral knee replacement, degenerative
disc disease of the lumbosacral spine, history of duodenal bleeding gastric ectasia presented to the emergency department with the immediate of complaints but mostly diarrhea, weakness, low back pain with ambulatory difficulties. On admission, it
was reviewed -- the patient's diarrhea is likely from prior. He has chronic incontinence with pencil-like stool. She does not have watery diarrhea. She has no evidence of dehydration. She had been placed on Augmentin for abdominal cramps after
discussing with PMD few days ago. She had no fevers or chills, dysuria on admission. She had no signs or symptoms or urinary tract infection on admission. Urinary frequency and incontinence unchanged from prior. Patient shows no focal neurological
deficits on history.
Gen: NAD, AAOx3.
Eyes: EOMI, PERRLA, no scleral icterus.
Neck: supple.
CV: allison, +S1/S2, no m/r/g.
Resp: CTAB anteriorly, no rales, wheezes, or rhonchi.
Abd: +BS, soft, NT, ND
Skin: No rashes.
Neuro: CN 2-12 intact, non-focal.
Psych: normal mood and affect.
CT A/P w/IV+PO:
1. Possible inflammatory bowel disease of the terminal ileum such as Crohn's. Peristalsis cannot be excluded�new mild left adrenal mass
2. Persistent mild nondistention of the rectosigmoid region mass cannot be excluded
3. Cystic pancreatic masses previously evaluated on MRI showed only a mass in pancreatic head no malignancy
4. Stable left adrenal mass noted to be benign adenoma by MRI
5. Diverticulosis no diverticulitis
CT head: No acute intracranial normality. Mild atrophy.
Colonoscopy 12/16/23: The examined portion of the ileum was normal. Biopsied. One 4 mm polyp at the ileocecal valve, removed with a cold snare. Resected and retrieved. Diverticulosis in the sigmoid colon. Non-bleeding internal hemorrhoids. Biopsies
were taken with a cold forceps from the right colon and left colon for evaluation of microscopic colitis.
Ongoing diarrhea:
-concern for inflammatory bowel disease/Rectosigmoid region mild distention cannot rule out mass based on imaging on admission
-Had been taking Augmentin for diverticulitis by PCP (stopped as no diverticulitis on CT)
-Holding MgO as that can cause diarrhea
-C diff NEG, stool Cx NEG
-GI following although no notes over last few days-->will ask them to formally see if worsening but reeval over the next 24 hrs.
-Colonoscopy 12/16/23 above, fairly unremarkable. Bleeding could have been done due to diverticula or internal hemorrhoids. Path NEG for malignancy, granulomas, acute colitis, etc.
-Today INR 2.64, Hemoglobin 11.6 today. Restarted Coumadin last night since she is high risk VTE. Repeat H/H and INR as outpatient as instructed by cardiology.
-No further episodes hematochezia.
Generalized Weakness:
-with lightheadedness
-ECG, CT brain, orthostatic VS on 12/13/23 all NEG
-PT/OT
PAF:
-INR 2.64, restarted Coumadin last night at 2.5 mg
-h/o s/p mechanical AVR 2009
-Appreciated cardiology follow-up today
Chronic osteoarthritis, spinal disease with acute on chronic lumbar back pain right side/rib pain due to musculoskeletal strain
-h/o lumbar epidural/lumbar rhizotomy left-sided
-Patient follows with pain management Dr. Segura in [place] is due for right-sided epidural
-Lidoderm patch to right rib
-Pain control
-PT/OT
Other problems:
Mild transaminitis, trend
Chronic daily headaches/Retinal migraines
Ischemic optic neuropathy right eye
Acute on chronic bilateral knee pain with ambulatory dysfunction, h/o bilateral knee replacements
Chronic Iron deficiency, pt reports has appointment end of December with Dr. Cortez for iron infusion
Essential HTN: cont Losartan
h/o Hypomagnesemia
Chronic urinary incontinence
h/o LBBB
h/o transient heart block/SSS
h/o CVA: cont ASA/statin
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
Chronic HFpEF: cont Lasix
DM2: a1c 6.4%, cont Lantus/SSI/accuchecks
HLD: cont statin
GERD: Cont PPI
Obesity due to excess calories: encourage wt loss, affects all aspects of care
FULL/therapeutic INR
Anticipated Discharge: Today
Subjective/Interval History
-
Date of Service: December 23, 2023
Patient had bowel movement with no blood. Feels well overall.
Objective Data
-
Labs:
Laboratory Results
12/23/23
05:19
WBC 6.4
Hgb 11.6 L
Hct 36.2 L
Plt Count 197
PT 28.1 H
INR 2.64
Vital Signs:
Vital Signs
Temp Pulse Resp BP Pulse Ox
97.9 F 44 18 105/44 96
12/23/23 03:26 12/23/23 03:26 12/23/23 03:26 12/23/23 03:26 12/23/23 03:26
I&O
12/22/23 12/23/23 12/24/23
06:59 06:59 06:59
Intake Total 2019
Output Total 850 / 850 1480 / 1480
Balance 1170 / 1170 440 / 440
[2023-12-23 11:00] VITALS: BP 114/45
[2023-12-23] MEDS: NOVOLOG FLEXPEN-LOW RESISTANCE SC (12:27)
--- NOTE | 2023-12-23 13:38 | W.DCSUMMARY ---
Discharge Summary
Discharge Data
Date of Admission: 12/14/23
Date of Discharge: 12/23/23
-
Pending Results: No
Hospital Course
Patient 78 years old female with history of aortic stenosis status post mechanical aortic valve replacement, CHF, pulmonary hypertension, paroxysmal atrial fibrillation, recurrent GI bleed, presented to the hospital with abdominal discomfort and
change in bowel habits concerns for colitis. Warfarin needed to be on hold and she was placed on heparin drip. GI and cardiology were consulted. Patient had a colonoscopy on 12/15 that shows 4 mm polyp at the ileocecal valve removed with a cold
snare, diverticulosis, nonbleeding internal hemorrhoids, and biopsies taken from the right colon and left colon for evaluation of microscopic colitis. Patient had some rectal bleeding after procedure and heparin had to be stopped and warfarin held.
Subsequently bleeding stopped on its own. Hemoglobin remained stable. Warfarin was able to be reintroduced and she had no evidence of bleeding while taking warfarin in the hospital. Her INR is 2.64 upon discharge and cardiology recommended and
discussed with patient about the doses that she will take as outpatient and they will recheck INR over the next 2 days as outpatient. Otherwise, patient is hemodynamically stable and she is going to be discharged in stable condition today.
Discharge duration: 36 minutes
Discharge Plan
-
Patient Disposition: Home (Routine Discharge)
Discharge Diagnosis/Procedures: Gastrointestinal bleed. Mechanical aortic valve replacement on chronic warfarin. Sinus bradycardia. Left bundle branch block. Chronic diastolic congestive heart failure. Paroxysmal atrial fibrillation.
Hypertension.
Diet: Low Cholesterol
Activity: As tolerated
Driving Restrictions: As prior to admission
Blood Work: Please PCP to order CBC, BMP, INR within 1 week
Referrals:
Raisa Vasquez CRNP [Specified Professional Personl] - 01/19/24 11:30 am
Silvia Pena MD [Family Provider] - in less than 1 week
Arvin Marquez MD [Active] - 01/11/24 2:40 pm
Prescriptions:
Continued
omeprazole 40 MG capsule,delayed release(DR/EC)
40 mg PO DAILY
riboflavin (vitamin B2) 400 MG tablet
400 mg PO DAILY
warfarin 5 mg tablet
2.5 mg PO SUFRSA
Patient Comments:
12/11/2023: Pt checked INR today, and then rechecks thursday for new dose
furosemide 20 mg tablet
20 mg PO DAILY
potassium chloride 20 mEq tablet extended release
20 meq PO DAILY
rosuvastatin 20 mg tablet
20 mg PO DAILY Qty: 90 0RF
losartan 50 mg tablet
50 mg PO BID
latanoprost 0.005 % drops
1 drp BOTH EYES HS
magnesium oxide 500 mg magnesium Tablet
500 mg PO TID
dorzolamide-timolol 22.3-6.8 mg/mL drops
1 drp BOTH EYES BID
insulin glargine [Lantus Solostar U-100 Insulin] 100 unit/mL (3 mL) insulin pen
6 unit SC DAILY
PreserVision AREDS 2,148 mcg-113 mg-45 mg-17.4mg Tablet
1 tab PO DAILY
Discontinued
amoxicillin-pot clavulanate 875-125 mg tablet
1 tab PO Q12H
Discharge Orders:
Discharge Patient (As Directed); Ordered 12/23/23
Ordered By: Rainer Thomas
Discharge Date and Time
Discharge Date/Time: 12/23/23 14:28
Print Language: YI
--- NOTE | 2023-12-23 14:44 | CM ---
MD entered order for discharge.
Pt had requested [facility] . As per care port accepted.
Family to transport home.
PLAN Home with [facility]
--- NOTE | 2023-12-23 14:59 | PN.CDI ---
CDI
- -
CDI:
Physician Documentation Request
Admit Date: 12/14/23 09:26
Dear Doctor William,
Patient admitted with ongoing diarrhea.
12/19 PN, 'Hematochezia yesterday, less so today.'
12/22 PN, 'Colonoscopy 12/16/23 above, fairly unremarkable. Bleeding could have been done due to diverticula or internal hemorrhoids.
Discharge Patient Instructions, 'Gastrointestinal bleed. Mechanical aortic valve replacement on chronic warfarin.'
Please clarify the likely relationship between these conditions:
Yes, Gastrointestinal bleed is related to/associated with/enhanced by Warfarin.
No, Gastrointestinal bleed is not related to/associated with/ enhanced by Warfarin but it is due to ___. (Please specify)
Unable to determine
Use of terms such as suspected, likely, concern for, or probable (associated with a specific diagnosis that is being evaluated, monitored, or treated as if it exists) are acceptable and can be coded in the inpatient setting, when documented at the
time of discharge.
Thank you,
Yenni ENG,RN,CCDS
CDI Specialist
Available via [facility] text
Please use your independent medical judgment in providing your response.
== END 2023-12-23 14:28 | disposition home health service (06) | DRG 348 ==
LOC: 2 NORTH 09:26
PROVIDERS: Clinical Nurse Specialist Family Health; Hospitalist; Internal Medicine; Nurse Practitioner; Nurse Practitioner Family; ADMITTING PHYSICIAN Internal Medicine; ATTENDING PHYSICIAN Hospitalist; CONSULT PHYSICIAN Internal Medicine; CONSULT PHYSICIAN Internal Medicine Gastroenterology; EMERGENCY PHYSICIAN Emergency Medicine; FAMILY PHYSICIAN Internal Medicine
PROC: 0DBG8ZX Excision of Left Large Intestine, Via Natural or Artificial Opening Endoscopic, Diagnostic (ICD-10-PCS; 2023-12-16)
PROC: 0DBB8ZX Excision of Ileum, Via Natural or Artificial Opening Endoscopic, Diagnostic (ICD-10-PCS; 2023-12-16)
PROC: 0DBC8ZZ Excision of Ileocecal Valve, Via Natural or Artificial Opening Endoscopic (ICD-10-PCS; 2023-12-16)
PROC: 0DBF8ZX Excision of Right Large Intestine, Via Natural or Artificial Opening Endoscopic, Diagnostic (ICD-10-PCS; 2023-12-16)
DX: K57.31 Diverticulosis of large intestine without perforation or abscess with bleeding (principal); D68.32 Hemorrhagic disorder due to extrinsic circulating anticoagulants; I44.2 Atrioventricular block, complete; I50.32 Chronic diastolic (congestive) heart failure; K86.2 Cyst of pancreas; K91.840 Postprocedural hemorrhage of a digestive system organ or structure following a digestive system procedure; M54.2 Cervicalgia; M54.50 Low back pain, unspecified; E11.40 Type 2 diabetes mellitus with diabetic neuropathy, unspecified; E78.00 Pure hypercholesterolemia, unspecified; G43.109 Migraine with aura, not intractable, without status migrainosus; I11.0 Hypertensive heart disease with heart failure; K21.9 Gastro-esophageal reflux disease without esophagitis; K76.0 Fatty (change of) liver, not elsewhere classified; I35.0 Nonrheumatic aortic (valve) stenosis; H54.61 Unqualified visual loss, right eye, normal vision left eye; E11.36 Type 2 diabetes mellitus with diabetic cataract; H47.011 Ischemic optic neuropathy, right eye; L40.9 Psoriasis, unspecified; G89.29 Other chronic pain; I27.20 Pulmonary hypertension, unspecified; I48.0 Paroxysmal atrial fibrillation; D50.9 Iron deficiency anemia, unspecified; M25.561 Pain in right knee; M25.562 Pain in left knee; E27.9 Disorder of adrenal gland, unspecified; E66.09 Other obesity due to excess calories; R26.2 Difficulty in walking, not elsewhere classified; Y84.8 Other medical procedures as the cause of abnormal reaction of the patient, or of later complication, without mention of misadventure at the time of the procedure; Y73.0 Diagnostic and monitoring gastroenterology and urology devices associated with adverse incidents; Y92.239 Unspecified place in hospital as the place of occurrence of the external cause; E83.42 Hypomagnesemia; K64.8 Other hemorrhoids; R32 Unspecified urinary incontinence; N32.81 Overactive bladder; Z96.653 Presence of artificial knee joint, bilateral; Z86.16 Personal history of COVID-19; Z86.73 Personal history of transient ischemic attack (TIA), and cerebral infarction without residual deficits; Z90.710 Acquired absence of both cervix and uterus; Z95.2 Presence of prosthetic heart valve; Z90.49 Acquired absence of other specified parts of digestive tract; Z79.01 Long term (current) use of anticoagulants; Z79.4 Long term (current) use of insulin; Z86.010 Personal history of colon polyps; Z87.19 Personal history of other diseases of the digestive system; Z68.29 Body mass index [BMI] 29.0-29.9, adult; Z11.52 Encounter for screening for COVID-19; Z88.8 Allergy status to other drugs, medicaments and biological substances
CPT/HCPCS: 88305; 70450; 74177; 80048; 80053; 80076; 82550; 82607; 82962; 83605; 83735; 83880; 83993; 84132; 84443; 84484; 85025; 85027; 85610; 85652; 85730; 86140; 87045; 87046; 87324; 87427; 87449; 87502; 87811; 89055; 93005; 96374; 97116; 97162; 97166; 97530; 97535; 99285; Q9967

== ENCOUNTER → 2024-01-12 06:29 | Outpatient (REF) | payer MEDICARE, SELFPAY ==
[2024-01-12 08:51] LABS: % Immature Granulocytes 0.2 % (0-0.5); % Lymphocytes 33.2 % (20.5-51.1); % Monocytes 10.4 % (1.7-9.3); % Neutrophils 53.2 % (42.2-75.2); Absolute Basophils 0.1 10^3/uL (0-0.2); Absolute Eosinophils 0.1 10^3/uL (0-0.7); Absolute Lymphocytes 1.7 10^3/uL (1.2-3.4); Absolute Monocytes 0.5 10^3/uL (0.1-0.6); Absolute Neutrophils 2.7 10^3/uL (1.4-6.5); Hemoglobin 12.6 g/dL (12.0-16.0); Mean Corp Hgb Conc. 32.3 g/dL (33.0-37.0); Mean Corpuscular Hgb 28.5 pg (27.0-31.0); Mean Corpuscular Volume 88.2 fL (81.0-99.0); Mean Platelet Volume 10.2 fL (7.4-10.4); Nucleated Red Blood Cells % 0 %; Platelet Count 224 10^3/uL (130-400); Red Blood Cell Count 4.42 10^6/uL (4.20-5.40); Red Cell Dist. Width 13.6 % (11.5-14.5)
[2024-01-12 09:00] LABS: Erythrocyte Sed Rate 10 mm/hour (0-20)
[2024-01-12 09:14] LABS: ALT (SGPT) 21 U/L (0-35); AST (SGOT) 27 U/L (14-36); Albumin 4.1 g/dl (3.5-5.0); Alkaline Phosphatase 72 U/L (38-126); Blood Urea Nitrogen 34 mg/dl (7-17); Calcium 9.3 mg/dl (8.4-10.2); Carbon Dioxide 25 mmol/L (22-30); Chloride 107 mmol/L (98-107); Glucose 130 mg/dl (70-99); Iron 66 ug/dl (37-170); Magnesium 2.1 mg/dl (1.6-2.3); Potassium 4.1 mmol/L (3.5-5.1); Sodium 142 mmol/L (135-145); Total Bilirubin 0.3 mg/dl (0.2-1.3); Total Protein 6.7 g/dl (6.3-8.2); eGFR > 60.00
[2024-01-12 09:23] LABS: Percent Saturation 18 % (20-50); Total Iron Binding Capacity 366 ug/dl (265-497)
[2024-01-12 09:29] LABS: C-Reactive Protein < 5.00 mg/L (0.0-10.00)
[2024-01-12 11:52] LABS: Folate 10.3 ng/ml (2.76-20)
[2024-01-14 15:15] LABS: Ferritin 23.2 ng/ml (11.1-264.0)
== END ==
LOC: REG 06:29
PROVIDERS: ATTENDING PHYSICIAN Ophthalmology; FAMILY PHYSICIAN Internal Medicine; REFERRING PHYSICIAN Internal Medicine Hematology & Oncology
DX: D64.9 Anemia, unspecified (principal); E83.42 Hypomagnesemia; H34.11 Central retinal artery occlusion, right eye; K86.2 Cyst of pancreas; E61.1 Iron deficiency
CPT/HCPCS: 36415; 80053; 82728; 82746; 83540; 83550; 83735; 85025; 85652; 86140

== ENCOUNTER 2024-02-25 07:46 | Day surgery (SDC) | payer MEDICARE, SELFPAY ==
[2024-02-25] VITALS (10 sets, daily range): BP systolic 144–172; BP diastolic 60–72; BMI 29.8; BMI 29.9
[2024-02-25 08:37] LABS: Glucose - Point of Care 138 mg/dl (70-99)
[2024-02-25 08:57] LABS: INR 1.39; PT 17.1 Sec (11.4-14.6)
--- NOTE | 2024-02-25 13:21 | ITS.CL.PACE ---
[employer] [facility]order - Pacemaker Implant
Pacemaker Implant
Procedure Report:
FIELD SPEC-P with Bi-Ventricular Permanent Pacemaker (BiV-PPM) Placement:
Ms. Modi is a 79 years old woman with sick sinus syndrome, chronic conduction disease with left bundle branch block, intermittent AV block, paroxysmal symptomatic atrial fibrillation, HFpEF, mechanical aortic valve 2010, hypertension,
hyperlipidemia, type 2 insulin-dependent diabetes, osteoarthritis, CVA, retinal artery occlusion, and recurrent GI bleed secondary to
GAVE who had significant symptomatic pauses is recommended BiV pacemaker and he is here for the device implantation.
Indications: Sick sinus syndrome and left bundle branch block and intermittent AV block needs a biventricular pacemaker.
Date of the Procedure: 02/25/2024
Pre-Operative Diagnosis: Sick sinus syndrome and left bundle branch block and intermittent AV block
Post-Operative Diagnosis: Sick sinus syndrome and left bundle branch block and intermittent AV block
Procedure Performed: FIELD SPEC-P with BIVENTRICULAR PERMANENT PACEMAKER IMPLANTATION
Performing Physician:
Arvin Marquez MD
Anesthesia:
See anesthesia records
Detailed Description of the Procedure:
The patient was identified using hospital identification and informed consent obtained for the procedure. The risks were explained to the patient and the family including, but not limited to: Bleeding, infection, arrhythmia, stroke,
vascular/cardiac/lung puncture, surgery, pacemaker dependency/device malfunction. All questions were answered.
A surgical pause was performed in accordance with hospital regulations. Anesthesia service provided sedation as reported separately. Antibiotics administered IV for risk of bacterial colonization. After obtaining informed and written consent, the
patient was brought to the electrophysiology laboratory.
A timeout was performed immediately before the procedure. The left chest was prepped from the nipple to the angle of the jaw with chlorhexidine, and draped following sterile technique in usual routine.�
The procedure site was meticulously prepared with surgical scrub and allowed to dry with no pooling. Sterile draping was applied to cover the procedure site. The image intensifier was draped with sterile bag and positioned over the patient.
The left infra-clavicular region was prepped and draped in the usual sterile fashion. Local anesthesia was administered subcutaneously using 1% lidocaine / Bupivacaine. The left cephalic vein cut-down was performed with an incision at the
delto-pectoral groove, and vascular sheaths were introduced for lead access. These were advanced into the right ventricle and the right atrium.
Axillary vein was accessed using micropuncture apparatus. The leads were placed in the axillary vein to the IVC.
Attention turned to the coronary sinus. The guide wire was advanced to the IVC and a long hemostatic extended hook, peel away sheath was advanced to the RA.
The CS was cannulated using radiofocus glidewire. The sheath was advanced over the guidewire across the bend into the CS. The glidewire was placed into the CS and coronary sinus venography was obtained. CS anatomy revealed a posterolateral branch.
The posterolateral branch was accessed using a BMW wire.
The canted lead was placed over the wire but had high threshold with instability. The PL branch was big and wide and decision was made to place an active fix CS wire to avoid dislodgement. A long active fixation quad LV lead was used and advanced
into the postero-lateral br over the BMW wire with anticlock movement. Once adequate location achieved the LV lead was deployed by clock cortes turns. Once adequate fixation achieved, the push and pull test was done and lead location was confirmed.
During pacing, QRS complex was favorable, with a QS in lateral leads and RBBB configuration during LV pacing. It was deemed ideal for biventricular pacing. Diaphragmatic stimulation was not present with high output pacing here. The long guiding
sheath was removed from the vein and then from the body without change in lead position, impedance, sensing, or capture.
The right ventricular lead was then placed in the RV septal wall. The lead was secured in position with an active fixation technique at the apical septal location.
Then the atrial lead was placed in the right atrial appendage with active fixation.
There was excellent sensing, pacing, and impedance from the leads, with no diaphragmatic stimulation at 10 V output.�Bovie cautery, antibiotics, and fluoroscopy were used.
Short CA interval permitted non-adaptivCRT pacing with LV pacing 20 msec earlier with excellent QRS narrowing. The leads were sutured to the underlying pectoralis fascia with 0-silk / 2-0 Ethibond stitches.�
Some oozing was seen at access sites. This was managed with manual pressure and a loose pursestring suture.�
The leads were attached to the pulse generator in standard configuration with acceptable sensing and threshold parameters.
The device was anchored to underlying fascia using 2-0 Ethibond suture.
The pocket was irrigated with antibiotic solution; the pocket was inspected with no active bleeding noted. The device and the leads were placed in the pocket.
Deep subcutaneous tissues were closed with 3 layers of 2-0 VLoc sutures and the dermis was reopposed using a running 4-0 VLoc subcuticular suture. Sponge counts / sharp counts were appropriate.
Procedure End:
The procedure was tolerated well. Aquacel bandaged was applied. A pressure dressing was applied.
Estimated Blood loss:
10 cc
Specimens Removed:
No cultures and no specimens were obtained. No intraoperative pathology was identified.
Urine output:
None
Packs / Drains/ Tubes:
None
Instrument / Sponge Count Correct:
Yes
Flouro time:
9min / 52mGy
Contrast used:
5ml
Complications of the Procedure:
None
Condition of Patient at Time of Transfer:
Hemodynamically stable with no neurological or vascular compromise.
Device information:�
Generator: [employer]Point; Model: [id number]; Serial # [id number]� - L Pect SQ
����������� Atrial Plug: Medtronic; Model: 5076-52; Serial # [id number] - RAA
����������������������� Measured data on the RV lead was sensing of 1.5 mV, impedance of 420 ohms and threshold of 1.5 V at 0.4ms�
����������� RV Lead: Medtronic; Model: 5076-58; Serial # [id number] � RV Septum
����������������������� Measured data on the RV lead was sensing of 15mV, impedance of 580 ohms and threshold of 1.0 V at 0.4ms�
����������� LV pacing lead: Medtronic; Model: 4798-88; Serial # [id number] � PL Br
����������������������� Measured data on the LV lead was impedance of 620 ohms and threshold of 1.2 V at 0.4ms (LV3 to LV4; diaphragm not seen at max output for all the various combination tested).
PROGRAMMING PARAMETERS:�
Elpidio parameter settings were DDDR 50-130 �
����������� Paced AV interval: 130ms
����������� Sensed AV interval: 100 ms.
����������� Rate Adaptive A-V Interval: on
�����������
Output� parameters:
����������������������� Amplitude (V)������������� Pulse Width (ms)������� Sensitivity (mV)
����������� RA: ���� 3.5 ����������������� ����������� 0.4������������������ ����������� 0.3
����������� RV: ���� 3.5 ����������������� ����������� 0.4������������������ ����������� 0.9
����������� LV:������ 3.5������������������ ����������� 0.4������������������
Summary:
Successful implantation of MRI compatible FIELD SPEC-P
Results/Recommendations:
-Please follow up CXR�
Instructions to be given to patient:�
- Please follow up with [facility] at [address] [place] [address] ([phone]) to get your wound checked in 2 weeks of your discharge.
- Do not wet incision site until after it is evaluated at cardiology clinic. No baths or showers until then. Sponge baths / showers are OK but dab dry the dressing after it is wet.�
- Allow 'steri strips' to fall off on their own�
- Do not lift left elbow above shoulder, particularly with sudden jerking movements, for 1 month�
- Do not lift anything weighing more than 5 pounds with the left arm for 1 month�
- If you notice any fevers, shortness of breath, lightheadedness, chest pain, or worsening swelling in the wound site, please contact the arrhythmia clinic, contact your concrete tester, or present to the hospital for evaluation.�
Arvin Marquez MD
Electrophysiology
[2024-02-25 14:10] LABS: Glucose - Point of Care 94 mg/dl (70-99)
[2024-02-25] MEDS: TYLENOL 1000 MG PO ×2 (14:49→22:41)
--- NOTE | 2024-02-25 14:55 | CM ---
Chart reviewed. Patient is independent of ADLS, lives with her significant other in a 2 STH, 0 ALIN, ambulates with a SPC and RW. Patient currently with no needs. Plan is for the patient to return home. CM to follow.
[2024-02-25 16:30] LABS: Glucose - Point of Care 112 mg/dl (70-99)
--- NOTE | 2024-02-25 17:24 | PTCARENOTE ---
Received pt post PPM. VSS, EKG and CXR obtained. Dry pressure dressing intact. Left arm immobilizer intact. Ecchymosis noted distal from pressure dressing from previous injury. Meds as ordered. Will monitor.
[2024-02-25] MEDS: ANCEF 5 IV (18:03)
[2024-02-25] MEDS: COUMADIN 5 MG PO (18:03)
[2024-02-25] MEDS: PROTONIX 40 MG PO (18:04)
[2024-02-25] MEDS: COZAAR 50 MG PO (19:58)
[2024-02-25] MEDS: COSOPT EYE DROPS 1 DROP BOTH EYES (19:59)
[2024-02-25 21:22] LABS: Glucose - Point of Care 152 mg/dl (70-99)
--- NOTE | 2024-02-25 21:39 | PTCARENOTE ---
received patient at the change of shift. AAOx3. patient states having some 'stiffness' on her left shoulder from not moving it. Tylenol ordered and scheduled for 2200-see oct. L chest site CDI. pressure dressing intact. L arm immobilizer. reviewed
activity restrictions with patient and verbalized understanding. AV paced 60. bp stable. educated patient to inform Rn with any changes. call cox within reach.
[2024-02-25] MEDS: XALATAN OPHTHALMIC SOLUTION 1 DROP BOTH EYES (22:42)
[2024-02-26] MEDS: ANCEF 5 IV (02:52)
[2024-02-26 02:53] VITALS: BP 173/60
[2024-02-26 03:27] VITALS: BP 155/63
[2024-02-26 03:32] LABS: Hematocrit 36.2 % (37.0-47.0); Hemoglobin 11.8 g/dL (12.0-16.0); Mean Corp Hgb Conc. 32.6 g/dL (33.0-37.0); Mean Corpuscular Hgb 29.4 pg (27.0-31.0); Mean Platelet Volume 9.8 fL (7.4-10.4); Platelet Count 177 10^3/uL (130-400); Red Blood Cell Count 4.02 10^6/uL (4.20-5.40); Red Cell Dist. Width 14.3 % (11.5-14.5); White Blood Cell Count 6.6 10^3/uL (4.8-10.8)
[2024-02-26 03:45] LABS: Blood Urea Nitrogen 27 mg/dl (7-17); Calcium 9.4 mg/dl (8.4-10.2); Carbon Dioxide 23 mmol/L (22-30); Chloride 109 mmol/L (98-107); Estimated Creatinine Clearance 65 ml/min; Glucose 118 mg/dl (70-99); Magnesium 2.1 mg/dl (1.6-2.3); Potassium 4.4 mmol/L (3.5-5.1); Sodium 138 mmol/L (135-145); eGFR > 60.00
[2024-02-26 03:53] LABS: INR 1.35; PT 16.8 Sec (11.4-14.6)
[2024-02-26 04:10] VITALS: BMI 29.9
[2024-02-26] MEDS: TYLENOL 1000 MG PO (05:59)
[2024-02-26 07:14] VITALS: BP 134/61
[2024-02-26] MEDS: KCL 20 MEQ PO (07:56)
[2024-02-26] MEDS: COZAAR 50 MG PO (07:56)
[2024-02-26] MEDS: ASPIR LOW (ENTERIC COATED) 81 MG PO (07:56)
[2024-02-26] MEDS: LASIX 20 MG PO (07:56)
[2024-02-26] MEDS: CRESTOR 20 MG PO (07:56)
[2024-02-26] MEDS: COSOPT EYE DROPS 1 DROP BOTH EYES (07:57)
[2024-02-26] MEDS: ZETIA 10 MG PO (07:57)
[2024-02-26 08:11] LABS: Glucose - Point of Care 121 mg/dl (70-99)
[2024-02-26] MEDS: LANTUS 0.08 UNITS SC (08:31)
[2024-02-26 09:25] LABS: Glycohemoglobin (HgbA1c) 6.4 % (4.0-5.6)
--- NOTE | 2024-02-26 10:17 | W.PN.CARDCBS ---
Addendum entered and electronically signed by Gabe Gill MD 02/26/24 12:17:
I saw and examined the patient.
The [employer] CONSULTANT's note was reviewed and I agree with the note.
Comment: Site, CXR image, Tele, ekg tracing all personally reviewed. Good result. All good. F/u arranged. All questions answered. Home today.
Original Note:
Today's Communication / Plan
-
post BiV PPM stable for d/c home
Impression / Plan
-
PCP: Silvia Pena MD
CDY: Regine Rasheed MD
Ms. Modi is a 79 years old woman with sick sinus syndrome, chronic conduction disease with left bundle branch block, intermittent AV block, paroxysmal symptomatic atrial fibrillation, HFpEF, mechanical aortic valve 2009, hypertension,
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
implantation.
Impression/Plan:
Symptomatic SSS/LBBB/AV block - post BiV PPM 02/25/24, site stable with scant drainage, mild inc pain
CXR no PTX, tele AV dual paced, activity restrictions reviewed
incision check 1 week
Severe post AVR 2009 Mechanical - INR 1.35, Resumed Coumadin last evening 5mg
continue 5mg thu and thu, check INR Thursday, goal 2.5-3.5
Chronic HFpEF 55%
HTN
HLD
DM2
CVA
Retinal artery occlusion
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
Osteoarthritis
Progress Note - Crew Mess Attendant
Subjective
Date of Service: February 26, 2024
no cp, sob, mild inc pain
Objective
Labs:
02/26/24 03:01
02/26/24 03:01
Labs
Hgb 11.8 g/dL (12.0-16.0) L 02/26/24 03:01
Hct 36.2 % (37.0-47.0) L 02/26/24 03:01
Plt Count 177 10^3/uL (130-400) 02/26/24 03:01
PT 16.8 Sec (11.4-14.6) H 02/26/24 03:01
INR 1.35 02/26/24 03:01
Sodium 138 mmol/L (135-145) 02/26/24 03:01
Potassium 4.4 mmol/L (3.5-5.1) 02/26/24 03:01
BUN 27 mg/dl (7-17) H 02/26/24 03:01
Creatinine 0.7 mg/dL (0.6-1.0) 02/26/24 03:01
Glucose 118 mg/dl (70-99) H 02/26/24 03:01
Vital Signs and I&O:
Vital Signs
Temp Pulse Resp BP Pulse Ox
98.2 F 60 16 134/61 97
02/26/24 07:14 02/26/24 07:15 02/26/24 07:14 02/26/24 07:14 02/26/24 08:00
Vital Signs
Temp Pulse Resp BP Pulse Ox
98.2 F 60 16 134/61 97
02/26/24 07:14 02/26/24 07:15 02/26/24 07:14 02/26/24 07:14 02/26/24 08:00
Intake & Output
02/24/24 02/25/24 02/26/24 02/27/24
06:59 06:59 06:59 06:59
Intake Total 250 / 250
Balance 250 / 250
Physical Exam
Physical Exam
NAD, AOX3
S1, S2, RRR
CTAB, non labored
SNTND Bsx4
L CW AQuacel dressing with scant drainage, marked, pressure dressing removed
--- NOTE | 2024-02-26 11:09 | PTCARENOTE ---
Pt received this am with left arm immobilizer intact and left chest pressure dressing dry and intact. Denies any pain at this time. Pt discharged to home with her . Discharge instructions given and reviewed with pt with good understanding.
--- NOTE | 2024-02-26 11:46 | W.DS.TRANS ---
DC Summary - [facility]
-
Discharge Instructions:
Sleep Apnea Risk Intermediate
Discharge Diagnosis/Procedures BiV Pacemaker placement
Diet Low Cholesterol,Diabetic, Carb Controlled
Driving Restrictions No driving for 1 week
Bathing Restrictions OK to Shower
Instructions:
Stand-Alone Forms: DC Inst - Implanted Device
Changes to Home Medications: No
Discharge Medications:
DC Medications w/original date entered in [facility]
furosemide 20 mg tablet 20 mg PO DAILY Fluid Retention/Swelling 11/25/22
potassium chloride 20 mEq tablet,extended release 20 meq PO DAILY Electrolyte Repletion 11/25/22
rosuvastatin 20 mg tablet 20 mg PO DAILY #90 tabs 12/24/22
latanoprost 0.005 % eye drops 1 drp BOTH EYES HS Eye Condition 12/11/23
losartan 50 mg tablet 50 mg PO BID Blood Pressure 12/11/23
ezetimibe 10 mg tablet (Zetia) 10 mg PO DAILY 01/29/24
vit C 250 mg-vit E 90 mg-zinc 40 mg-copper 1 [id number] capsule (PreserVision AREDS-2) 1 tab PO BID 01/29/24
warfarin 5 mg tablet 5 mg PO TUWE 01/29/24
Cosopt 1 drp BOTH EYES BID 02/25/24
acetaminophen 500 mg tablet 1,000 mg PO Q8H 02/25/24
aspirin 81 mg tablet,delayed release 81 mg PO DAILY 02/25/24
cholecalciferol (vitamin D3) 25 mcg (1,000 unit) capsule (Vitamin D3) 25 mcg PO QPM 02/25/24
insulin detemir U-100 100 unit/mL (3 mL) subcutaneous pen (Levemir FlexPen) 8 unit SC DAILY 02/25/24
omeprazole 20 mg capsule,delayed release 20 mg PO QPM 02/25/24
warfarin 2.5 mg tablet 2.5 mg PO SUMOTHFRSA 02/25/24
Home Medication Changes
Pending Results: No
== END 2024-02-26 12:21 | disposition home or self-care (01) ==
LOC: CATH 07:46
PROVIDERS: Nurse Practitioner Adult Health; ATTENDING PHYSICIAN Internal Medicine Cardiovascular Disease; FAMILY PHYSICIAN Internal Medicine; OTHER PHYSICIAN Internal Medicine Cardiovascular Disease
DX: I49.5 Sick sinus syndrome (principal); E78.5 Hyperlipidemia, unspecified; I11.0 Hypertensive heart disease with heart failure; Z79.4 Long term (current) use of insulin; E11.9 Type 2 diabetes mellitus without complications; M19.90 Unspecified osteoarthritis, unspecified site; Z95.2 Presence of prosthetic heart valve; I50.32 Chronic diastolic (congestive) heart failure; I48.0 Paroxysmal atrial fibrillation; H34.9 Unspecified retinal vascular occlusion; I45.10 Unspecified right bundle-branch block; I44.7 Left bundle-branch block, unspecified; Z87.19 Personal history of other diseases of the digestive system; K21.9 Gastro-esophageal reflux disease without esophagitis; M48.00 Spinal stenosis, site unspecified; Z90.49 Acquired absence of other specified parts of digestive tract; Z79.82 Long term (current) use of aspirin; Z79.899 Other long term (current) drug therapy; Z86.73 Personal history of transient ischemic attack (TIA), and cerebral infarction without residual deficits; Z79.01 Long term (current) use of anticoagulants
CPT/HCPCS: 33208; 33225; 71045; 80048; 82962; 83036; 83735; 85027; 85610; 93005; C1769; C1887; C1892; C1898; C1900; C2621; Q9967

== ENCOUNTER → 2024-03-16 09:21 | Outpatient (REF) | payer MEDICARE, SELFPAY ==
[2024-03-16 11:33] LABS: % Basophils 1.6 % (0-2); % Eosinophils 3.2 % (0-6); % Immature Granulocytes 0.3 % (0-0.5); % Lymphocytes 17.7 % (20.5-51.1); % Monocytes 8.1 % (1.7-9.3); % Neutrophils 69.1 % (42.2-75.2); Absolute Basophils 0.1 10^3/uL (0-0.2); Absolute Eosinophils 0.2 10^3/uL (0-0.7); Absolute Lymphocytes 1.3 10^3/uL (1.2-3.4); Absolute Monocytes 0.6 10^3/uL (0.1-0.6); Absolute Neutrophils 5.2 10^3/uL (1.4-6.5); Hemoglobin 11.6 g/dL (12.0-16.0); Mean Corp Hgb Conc. 33.1 g/dL (33.0-37.0); Mean Corpuscular Hgb 28.6 pg (27.0-31.0); Mean Corpuscular Volume 86.2 fL (81.0-99.0); Mean Platelet Volume 10.5 fL (7.4-10.4); Nucleated Red Blood Cells % 0 %; Platelet Count 232 10^3/uL (130-400); Red Blood Cell Count 4.06 10^6/uL (4.20-5.40); White Blood Cell Count 7.5 10^3/uL (4.8-10.8)
[2024-03-16 12:07] LABS: ALT (SGPT) 47 U/L (0-35); AST (SGOT) 44 U/L (14-36); Albumin 4.1 g/dl (3.5-5.0); Alkaline Phosphatase 75 U/L (38-126); Blood Urea Nitrogen 33 mg/dl (7-17); Calcium 9.1 mg/dl (8.4-10.2); Carbon Dioxide 21 mmol/L (22-30); Chloride 109 mmol/L (98-107); Glucose 190 mg/dl (70-99); Iron 67 ug/dl (37-170); Potassium 4.5 mmol/L (3.5-5.1); Sodium 139 mmol/L (135-145); Total Bilirubin 0.4 mg/dl (0.2-1.3); Total Protein 6.5 g/dl (6.3-8.2); eGFR > 60.00
[2024-03-16 12:16] LABS: Percent Saturation 19 % (20-50); Total Iron Binding Capacity 351 ug/dl (265-497)
[2024-03-16 12:38] LABS: Ferritin 28.2 ng/ml (11.1-264.0)
== END ==
LOC: REG 09:21
PROVIDERS: ATTENDING PHYSICIAN Internal Medicine Hematology & Oncology; FAMILY PHYSICIAN Internal Medicine
DX: D50.0 Iron deficiency anemia secondary to blood loss (chronic) (principal); D51.9 Vitamin B12 deficiency anemia, unspecified; Z51.81 Encounter for therapeutic drug level monitoring
CPT/HCPCS: 36415; 80053; 82728; 83540; 83550; 85025

== ENCOUNTER → 2024-05-02 10:38 | Outpatient (REF) | payer MEDICARE, SELFPAY ==
[2024-05-02 11:44] LABS: % Basophils 1.1 % (0-2); % Immature Granulocytes 0.1 % (0-0.5); % Lymphocytes 30.2 % (20.5-51.1); % Monocytes 9.4 % (1.7-9.3); % Neutrophils 57.2 % (42.2-75.2); Absolute Basophils 0.1 10^3/uL (0-0.2); Absolute Eosinophils 0.2 10^3/uL (0-0.7); Absolute Lymphocytes 2.2 10^3/uL (1.2-3.4); Absolute Monocytes 0.7 10^3/uL (0.1-0.6); Absolute Neutrophils 4.2 10^3/uL (1.4-6.5); Hematocrit 38.4 % (37.0-47.0); Hemoglobin 12.8 g/dL (12.0-16.0); Mean Corp Hgb Conc. 33.3 g/dL (33.0-37.0); Mean Corpuscular Hgb 29.2 pg (27.0-31.0); Mean Corpuscular Volume 87.5 fL (81.0-99.0); Mean Platelet Volume 9.9 fL (7.4-10.4); Nucleated Red Blood Cells % 0 %; Platelet Count 215 10^3/uL (130-400); Red Blood Cell Count 4.39 10^6/uL (4.20-5.40); Red Cell Dist. Width 14.6 % (11.5-14.5); White Blood Cell Count 7.3 10^3/uL (4.8-10.8)
[2024-05-02 11:56] LABS: Erythrocyte Sed Rate 16 mm/hour (0-20)
[2024-05-02 12:52] LABS: ALT (SGPT) 191 U/L (0-35); AST (SGOT) 114 U/L (14-36); Albumin 4.2 g/dl (3.5-5.0); Alkaline Phosphatase 70 U/L (38-126); Direct Bilirubin 0.1 mg/dl (0.0-0.4); Iron 60 ug/dl (37-170); Total Bilirubin 0.4 mg/dl (0.2-1.3); Total Protein 6.5 g/dl (6.3-8.2)
[2024-05-02 12:56] LABS: C-Reactive Protein < 5.00 mg/L (0.0-10.00)
[2024-05-02 13:01] LABS: Percent Saturation 20 % (20-50); Total Iron Binding Capacity 298 ug/dl (265-497)
== END ==
LOC: REG 10:38
PROVIDERS: ATTENDING PHYSICIAN Internal Medicine Hematology & Oncology; FAMILY PHYSICIAN Internal Medicine; REFERRING PHYSICIAN Ophthalmology
DX: R74.01 Elevation of levels of liver transaminase levels (principal); D50.0 Iron deficiency anemia secondary to blood loss (chronic); D51.9 Vitamin B12 deficiency anemia, unspecified; H34.11 Central retinal artery occlusion, right eye
CPT/HCPCS: 36415; 80076; 82728; 83540; 83550; 85025; 85652; 86140

== ENCOUNTER → 2024-05-06 08:03 | Outpatient (REF) | payer MEDICARE, SELFPAY ==
[2024-05-06 09:47] LABS: ALT (SGPT) 94 U/L (0-35); AST (SGOT) 42 U/L (14-36); Albumin 4.1 g/dl (3.5-5.0); Alkaline Phosphatase 67 U/L (38-126); Blood Urea Nitrogen 39 mg/dl (7-17); Carbon Dioxide 24 mmol/L (22-30); Chloride 107 mmol/L (98-107); Glucose 192 mg/dl (70-99); Potassium 4.2 mmol/L (3.5-5.1); Sodium 144 mmol/L (135-145); Total Bilirubin 0.2 mg/dl (0.2-1.3); Total Protein 6.5 g/dl (6.3-8.2); eGFR > 60.00
== END ==
LOC: REG 08:03
PROVIDERS: ATTENDING PHYSICIAN Internal Medicine; REFERRING PHYSICIAN Internal Medicine Hematology & Oncology
DX: R74.01 Elevation of levels of liver transaminase levels (principal)
CPT/HCPCS: 36415; 80053

== ENCOUNTER → 2024-05-23 09:35 | Outpatient (REF) | payer MEDICARE, SELFPAY ==
[2024-05-23 11:49] LABS: ALT (SGPT) 40 U/L (0-35); AST (SGOT) 33 U/L (14-36); Albumin 4.1 g/dl (3.5-5.0); Alkaline Phosphatase 65 U/L (38-126); Blood Urea Nitrogen 29 mg/dl (7-17); Calcium 9.5 mg/dl (8.4-10.2); Carbon Dioxide 24 mmol/L (22-30); Chloride 106 mmol/L (98-107); Glucose 155 mg/dl (70-99); Potassium 4.5 mmol/L (3.5-5.1); Sodium 141 mmol/L (135-145); Total Bilirubin 0.3 mg/dl (0.2-1.3); Total Protein 6.6 g/dl (6.3-8.2); eGFR > 60.00
== END ==
LOC: REG 09:35
PROVIDERS: ATTENDING PHYSICIAN Internal Medicine; OTHER PHYSICIAN Internal Medicine Cardiovascular Disease; OTHER PHYSICIAN Internal Medicine Hematology & Oncology
DX: E11.9 Type 2 diabetes mellitus without complications (principal); I10 Essential (primary) hypertension
CPT/HCPCS: 36415; 80053

== ENCOUNTER → 2024-05-30 09:52 | Outpatient (REF) | payer MEDICARE, SELFPAY ==
[2024-05-30 10:28] LABS: % Eosinophils 1.7 % (0-6); % Immature Granulocytes 0.2 % (0-0.5); % Lymphocytes 25.9 % (20.5-51.1); % Monocytes 8.8 % (1.7-9.3); % Neutrophils 62.4 % (42.2-75.2); Absolute Basophils 0.1 10^3/uL (0-0.2); Absolute Eosinophils 0.1 10^3/uL (0-0.7); Absolute Lymphocytes 1.6 10^3/uL (1.2-3.4); Absolute Monocytes 0.5 10^3/uL (0.1-0.6); Absolute Neutrophils 3.7 10^3/uL (1.4-6.5); Hematocrit 42.5 % (37.0-47.0); Hemoglobin 14.2 g/dL (12.0-16.0); Mean Corp Hgb Conc. 33.4 g/dL (33.0-37.0); Mean Corpuscular Hgb 30.5 pg (27.0-31.0); Mean Corpuscular Volume 91.4 fL (81.0-99.0); Mean Platelet Volume 9.8 fL (7.4-10.4); Nucleated Red Blood Cells % 0 %; Platelet Count 201 10^3/uL (130-400); Red Blood Cell Count 4.65 10^6/uL (4.20-5.40); Red Cell Dist. Width 14.8 % (11.5-14.5)
[2024-05-30 11:02] LABS: ALT (SGPT) 35 U/L (0-35); AST (SGOT) 36 U/L (14-36); Albumin 4.7 g/dl (3.5-5.0); Alkaline Phosphatase 65 U/L (38-126); Blood Urea Nitrogen 38 mg/dl (7-17); Calcium 9.6 mg/dl (8.4-10.2); Carbon Dioxide 23 mmol/L (22-30); Chloride 108 mmol/L (98-107); Glucose 118 mg/dl (70-99); Iron 94 ug/dl (37-170); Potassium 4.6 mmol/L (3.5-5.1); Sodium 144 mmol/L (135-145); Total Bilirubin 0.5 mg/dl (0.2-1.3); Total Protein 7.3 g/dl (6.3-8.2); eGFR > 60.00
[2024-05-30 11:13] LABS: Percent Saturation 35 % (20-50); Total Iron Binding Capacity 265 ug/dl (265-497)
== END ==
LOC: REG 09:52
PROVIDERS: ATTENDING PHYSICIAN Internal Medicine Hematology & Oncology; FAMILY PHYSICIAN Internal Medicine; OTHER PHYSICIAN Urology; REFERRING PHYSICIAN Internal Medicine Cardiovascular Disease
DX: D50.0 Iron deficiency anemia secondary to blood loss (chronic) (principal); D51.9 Vitamin B12 deficiency anemia, unspecified; E11.9 Type 2 diabetes mellitus without complications; R74.01 Elevation of levels of liver transaminase levels
CPT/HCPCS: 36415; 80053; 82728; 83036; 83540; 83550; 85025

== ENCOUNTER → 2024-07-22 07:46 | Outpatient (REF) | payer MEDICARE, SELFPAY ==
[2024-07-22 09:37] LABS: % Basophils 1.3 % (0-2); % Eosinophils 2.8 % (0-6); % Immature Granulocytes 0.4 % (0-0.5); % Lymphocytes 27.3 % (20.5-51.1); % Monocytes 8.7 % (1.7-9.3); % Neutrophils 59.5 % (42.2-75.2); Absolute Basophils 0.1 10^3/uL (0-0.2); Absolute Eosinophils 0.2 10^3/uL (0-0.7); Absolute Lymphocytes 1.5 10^3/uL (1.2-3.4); Absolute Monocytes 0.5 10^3/uL (0.1-0.6); Absolute Neutrophils 3.2 10^3/uL (1.4-6.5); Hematocrit 39.6 % (37.0-47.0); Hemoglobin 12.8 g/dL (12.0-16.0); Mean Corp Hgb Conc. 32.3 g/dL (33.0-37.0); Mean Corpuscular Hgb 30.4 pg (27.0-31.0); Mean Corpuscular Volume 94.1 fL (81.0-99.0); Mean Platelet Volume 10.1 fL (7.4-10.4); Nucleated Red Blood Cells % 0 %; Platelet Count 250 10^3/uL (130-400); Red Blood Cell Count 4.21 10^6/uL (4.20-5.40); Red Cell Dist. Width 14.6 % (11.5-14.5); White Blood Cell Count 5.4 10^3/uL (4.8-10.8)
[2024-07-22 10:10] LABS: ALT (SGPT) 34 U/L (0-35); AST (SGOT) 34 U/L (14-36); Albumin 4.1 g/dl (3.5-5.0); Alkaline Phosphatase 62 U/L (38-126); Blood Urea Nitrogen 26 mg/dl (7-17); Calcium 9.3 mg/dl (8.4-10.2); Carbon Dioxide 23 mmol/L (22-30); Chloride 109 mmol/L (98-107); Glucose 108 mg/dl (70-99); HDL Cholesterol 52 mg/dl; Iron 75 ug/dl (37-170); LDL Cholesterol, Calculated 97 mg/dl; Potassium 4.3 mmol/L (3.5-5.1); Sodium 141 mmol/L (135-145); Total Bilirubin 0.4 mg/dl (0.2-1.3); Total Cholesterol 199 mg/dl (50-199); Total Protein 6.4 g/dl (6.3-8.2); Triglyceride 253 mg/dl (10-149); Very Low Density Lipoprotein 50 mg/dl (0-30); eGFR > 60.00
[2024-07-22 10:19] LABS: Percent Saturation 25 % (20-50); Total Iron Binding Capacity 290 ug/dl (265-497)
== END ==
LOC: REG 07:46
PROVIDERS: ATTENDING PHYSICIAN Internal Medicine Hematology & Oncology; FAMILY PHYSICIAN Internal Medicine; REFERRING PHYSICIAN Internal Medicine Cardiovascular Disease
DX: R74.01 Elevation of levels of liver transaminase levels (principal); D50.0 Iron deficiency anemia secondary to blood loss (chronic); D51.9 Vitamin B12 deficiency anemia, unspecified
CPT/HCPCS: 36415; 80053; 80061; 82728; 83540; 83550; 85025

== ENCOUNTER → 2024-09-02 06:40 | Outpatient (REF) | payer MEDICARE, SELFPAY ==
[2024-09-02 07:25] LABS: % Basophils 1.4 % (0-2); % Eosinophils 2.5 % (0-6); % Immature Granulocytes 0.2 % (0-0.5); % Lymphocytes 26.7 % (20.5-51.1); % Monocytes 9.6 % (1.7-9.3); % Neutrophils 59.6 % (42.2-75.2); Absolute Basophils 0.1 10^3/uL (0-0.2); Absolute Eosinophils 0.1 10^3/uL (0-0.7); Absolute Lymphocytes 1.4 10^3/uL (1.2-3.4); Absolute Monocytes 0.5 10^3/uL (0.1-0.6); Hematocrit 38.9 % (37.0-47.0); Hemoglobin 12.7 g/dL (12.0-16.0); Mean Corp Hgb Conc. 32.6 g/dL (33.0-37.0); Mean Corpuscular Hgb 29.9 pg (27.0-31.0); Mean Corpuscular Volume 91.5 fL (81.0-99.0); Mean Platelet Volume 9.7 fL (7.4-10.4); Nucleated Red Blood Cells % 0 %; Platelet Count 232 10^3/uL (130-400); Red Blood Cell Count 4.25 10^6/uL (4.20-5.40); Red Cell Dist. Width 12.7 % (11.5-14.5); White Blood Cell Count 5.1 10^3/uL (4.8-10.8)
[2024-09-02 08:03] LABS: C-Reactive Protein < 5.00 mg/L (0.0-10.00)
[2024-09-02 08:05] LABS: Erythrocyte Sed Rate 25 mm/hour (0-20)
[2024-09-02 08:10] LABS: Iron 67 ug/dl (37-170)
[2024-09-02 08:19] LABS: Percent Saturation 24 % (20-50); Total Iron Binding Capacity 277 ug/dl (265-497)
[2024-09-02 08:22] LABS: Total Iron Binding Capacity 288 ug/dl (265-497)
== END ==
LOC: REG 06:40
PROVIDERS: ATTENDING PHYSICIAN Ophthalmology; FAMILY PHYSICIAN Internal Medicine; OTHER PHYSICIAN Internal Medicine Cardiovascular Disease; REFERRING PHYSICIAN Internal Medicine Hematology & Oncology
DX: H34.11 Central retinal artery occlusion, right eye (principal); D50.0 Iron deficiency anemia secondary to blood loss (chronic); K31.811 Angiodysplasia of stomach and duodenum with bleeding; H43.813 Vitreous degeneration, bilateral; H40.013 Open angle with borderline findings, low risk, bilateral
CPT/HCPCS: 36415; 82728; 83540; 83550; 85025; 85652; 86140

== ENCOUNTER → 2024-10-12 06:46 | Outpatient (REF) | payer MEDICARE, SELFPAY ==
[2024-10-12 07:55] LABS: Urine Albumin 2+ (Neg - Trace); Urine Bilirubin Negative (Negative); Urine Character Slightly Cloudy (Clear); Urine Color Yellow; Urine Glucose Negative (Negative); Urine Ketone Negative (Negative); Urine Leukocyte Negative (Negative); Urine Nitrite Negative (Negative); Urine Occult Blood Negative (Negative); Urine Urobilinogen Negative (Neg - 1+)
[2024-10-12 08:01] LABS: Urine Bacteria Few (Negative); Urine Red Blood Cell 0-2 /HPF (0-2); Urine White Cell 0-2 /HPF (0-5)
[2024-10-12 08:03] LABS: % Basophils 1.4 % (0-2); % Eosinophils 3.1 % (0-6); % Immature Granulocytes 0.2 % (0-0.5); % Lymphocytes 31.3 % (20.5-51.1); % Monocytes 10.4 % (1.7-9.3); % Neutrophils 53.6 % (42.2-75.2); Absolute Basophils 0.1 10^3/uL (0-0.2); Absolute Eosinophils 0.1 10^3/uL (0-0.7); Absolute Lymphocytes 1.3 10^3/uL (1.2-3.4); Absolute Monocytes 0.4 10^3/uL (0.1-0.6); Absolute Neutrophils 2.3 10^3/uL (1.4-6.5); Hematocrit 39.5 % (37.0-47.0); Hemoglobin 12.8 g/dL (12.0-16.0); Mean Corp Hgb Conc. 32.4 g/dL (33.0-37.0); Mean Corpuscular Hgb 28.6 pg (27.0-31.0); Mean Corpuscular Volume 88.2 fL (81.0-99.0); Mean Platelet Volume 9.8 fL (7.4-10.4); Nucleated Red Blood Cells % 0 %; Platelet Count 259 10^3/uL (130-400); Red Blood Cell Count 4.48 10^6/uL (4.20-5.40); Red Cell Dist. Width 12.7 % (11.5-14.5); White Blood Cell Count 4.2 10^3/uL (4.8-10.8)
[2024-10-12 08:38] LABS: ALT (SGPT) 32 U/L (0-35); AST (SGOT) 34 U/L (14-36); Albumin 4.3 g/dl (3.5-5.0); Alkaline Phosphatase 64 U/L (38-126); Blood Urea Nitrogen 24 mg/dl (7-17); Calcium 9.3 mg/dl (8.4-10.2); Carbon Dioxide 24 mmol/L (22-30); Chloride 107 mmol/L (98-107); Glucose 116 mg/dl (70-99); HDL Cholesterol 42 mg/dl; Iron 72 ug/dl (37-170); LDL Cholesterol, Calculated 99 mg/dl; Potassium 4.5 mmol/L (3.5-5.1); Sodium 139 mmol/L (135-145); Total Bilirubin 0.8 mg/dl (0.2-1.3); Total Cholesterol 186 mg/dl (50-199); Total Protein 6.6 g/dl (6.3-8.2); Triglyceride 227 mg/dl (10-149); Very Low Density Lipoprotein 45 mg/dl (0-30); eGFR > 60.00
[2024-10-12 08:47] LABS: Microalbumin, Random Urine 5.4 mg/dl (0.6-1.7)
[2024-10-12 08:53] LABS: Percent Saturation 25 % (20-50); Total Iron Binding Capacity 284 ug/dl (265-497)
[2024-10-12 09:14] LABS: TSH Reflex To Free T4 1.47 uIU/ml (0.47-4.68)
[2024-10-12 09:18] LABS: Microalbumin/creatinine Ratio 46.8 mg/g
[2024-10-12 09:31] LABS: Vitamin B12 867 pg/ml (239-931)
[2024-10-12 10:43] LABS: Glycohemoglobin (HgbA1c) 6.1 % (4.0-5.6)
== END ==
LOC: REG 06:46
PROVIDERS: ATTENDING PHYSICIAN Internal Medicine Hematology & Oncology; FAMILY PHYSICIAN Internal Medicine; OTHER PHYSICIAN Internal Medicine Gastroenterology; REFERRING PHYSICIAN Internal Medicine Cardiovascular Disease
DX: D50.0 Iron deficiency anemia secondary to blood loss (chronic) (principal); D51.9 Vitamin B12 deficiency anemia, unspecified; Z00.00 Encounter for general adult medical examination without abnormal findings; Z78.9 Other specified health status; R82.90 Unspecified abnormal findings in urine; E55.9 Vitamin D deficiency, unspecified; E78.5 Hyperlipidemia, unspecified; I10 Essential (primary) hypertension; D50.9 Iron deficiency anemia, unspecified; R73.03 Prediabetes
CPT/HCPCS: 36415; 80053; 80061; 81003; 81015; 82043; 82306; 82570; 82607; 82728; 83036; 83540; 83550; 84443; 85025

== ENCOUNTER → 2024-10-17 08:14 | Outpatient (REF) | payer MEDICARE, SELFPAY | LOC: RAD 08:14 | PROVIDERS: ATTENDING PHYSICIAN Otolaryngology; FAMILY PHYSICIAN Internal Medicine | DX: R22.1 Localized swelling, mass and lump, neck (principal) | CPT/HCPCS: 76536 ==

== ENCOUNTER → 2024-10-26 14:07 | Outpatient (REF) | payer MEDICARE, SELFPAY | LOC: RAD 14:07 | PROVIDERS: ATTENDING PHYSICIAN Internal Medicine | DX: M25.552 Pain in left hip (principal) | CPT/HCPCS: 73502 ==

== ENCOUNTER → 2024-11-29 06:20 | Outpatient (REF) | payer MEDICARE, SELFPAY ==
[2024-11-29 07:05] LABS: % Basophils 1.5 % (0-2); % Immature Granulocytes 0.3 % (0-0.5); % Lymphocytes 26.4 % (20.5-51.1); % Monocytes 9.9 % (1.7-9.3); % Neutrophils 59.9 % (42.2-75.2); Absolute Basophils 0.1 10^3/uL (0-0.2); Absolute Eosinophils 0.1 10^3/uL (0-0.7); Absolute Lymphocytes 1.6 10^3/uL (1.2-3.4); Absolute Monocytes 0.6 10^3/uL (0.1-0.6); Absolute Neutrophils 3.7 10^3/uL (1.4-6.5); Hematocrit 42.8 % (37.0-47.0); Hemoglobin 13.9 g/dL (12.0-16.0); Mean Corp Hgb Conc. 32.5 g/dL (33.0-37.0); Mean Corpuscular Hgb 28.7 pg (27.0-31.0); Mean Corpuscular Volume 88.4 fL (81.0-99.0); Mean Platelet Volume 10.1 fL (7.4-10.4); Nucleated Red Blood Cells % 0 %; Platelet Count 209 10^3/uL (130-400); Red Blood Cell Count 4.84 10^6/uL (4.20-5.40); Red Cell Dist. Width 14.3 % (11.5-14.5); White Blood Cell Count 6.1 10^3/uL (4.8-10.8)
[2024-11-29 07:24] LABS: Erythrocyte Sed Rate 9 mm/hour (0-20)
[2024-11-29 07:46] LABS: C-Reactive Protein < 5.00 mg/L (0.0-10.00)
[2024-11-29 07:52] LABS: Blood Urea Nitrogen 29 mg/dl (7-17); Calcium 9.6 mg/dl (8.4-10.2); Carbon Dioxide 24 mmol/L (22-30); Chloride 109 mmol/L (98-107); Glucose 134 mg/dl (70-99); Iron 65 ug/dl (37-170); Potassium 3.9 mmol/L (3.5-5.1); Sodium 143 mmol/L (135-145); eGFR > 60.00
[2024-11-29 08:02] LABS: Percent Saturation 20 % (20-50); Total Iron Binding Capacity 321 ug/dl (265-497)
[2024-11-29 08:24] LABS: Ferritin 53.4 ng/ml (11.1-264.0)
== END ==
LOC: REG 06:20
PROVIDERS: ATTENDING PHYSICIAN Internal Medicine Hematology & Oncology; FAMILY PHYSICIAN Internal Medicine; OTHER PHYSICIAN Internal Medicine; OTHER PHYSICIAN Internal Medicine Cardiovascular Disease; OTHER PHYSICIAN Ophthalmology
DX: H34.11 Central retinal artery occlusion, right eye (principal); H43.813 Vitreous degeneration, bilateral; H40.013 Open angle with borderline findings, low risk, bilateral; D50.0 Iron deficiency anemia secondary to blood loss (chronic); D51.9 Vitamin B12 deficiency anemia, unspecified; Z51.81 Encounter for therapeutic drug level monitoring
CPT/HCPCS: 36415; 80048; 82728; 83540; 83550; 85025; 85652; 86140

== ENCOUNTER → 2025-01-04 07:06 | Outpatient (REF) | payer MEDICARE, SELFPAY | LOC: RCS 07:06 | PROVIDERS: ATTENDING PHYSICIAN Nurse Practitioner Gerontology; FAMILY PHYSICIAN Internal Medicine; OTHER PHYSICIAN Internal Medicine Hematology & Oncology | DX: Z95.2 Presence of prosthetic heart valve (principal) | CPT/HCPCS: 93306 ==

== ENCOUNTER → 2025-01-13 06:28 | Outpatient (REF) | payer MEDICARE, SELFPAY ==
[2025-01-13 07:28] LABS: % Basophils 1.4 % (0-2); % Eosinophils 2.3 % (0-6); % Immature Granulocytes 0.2 % (0-0.5); % Lymphocytes 28.8 % (20.5-51.1); % Monocytes 9.4 % (1.7-9.3); % Neutrophils 57.9 % (42.2-75.2); Absolute Basophils 0.1 10^3/uL (0-0.2); Absolute Eosinophils 0.1 10^3/uL (0-0.7); Absolute Lymphocytes 1.5 10^3/uL (1.2-3.4); Absolute Monocytes 0.5 10^3/uL (0.1-0.6); Hematocrit 41.3 % (37.0-47.0); Hemoglobin 13.4 g/dL (12.0-16.0); Mean Corp Hgb Conc. 32.4 g/dL (33.0-37.0); Mean Corpuscular Hgb 29.1 pg (27.0-31.0); Mean Corpuscular Volume 89.6 fL (81.0-99.0); Mean Platelet Volume 10.1 fL (7.4-10.4); Nucleated Red Blood Cells % 0 %; Platelet Count 211 10^3/uL (130-400); Red Blood Cell Count 4.61 10^6/uL (4.20-5.40); Red Cell Dist. Width 14.6 % (11.5-14.5); White Blood Cell Count 5.1 10^3/uL (4.8-10.8)
[2025-01-13 08:28] LABS: ALT (SGPT) 20 U/L (0-35); AST (SGOT) 25 U/L (14-36); Albumin 4.3 g/dl (3.5-5.0); Alkaline Phosphatase 55 U/L (38-126); Direct Bilirubin 0.1 mg/dl (0.0-0.4); Iron 62 ug/dl (37-170); Total Bilirubin 0.4 mg/dl (0.2-1.3); Total Protein 6.9 g/dl (6.3-8.2)
[2025-01-13 08:37] LABS: Percent Saturation 19 % (20-50); Total Iron Binding Capacity 315 ug/dl (265-497)
[2025-01-13 09:22] LABS: Glycohemoglobin (HgbA1c) 6.2 % (4.0-5.6)
[2025-01-13 16:36] LABS: Ferritin 52.1 ng/ml (11.1-264.0)
== END ==
LOC: REG 06:28
PROVIDERS: ATTENDING PHYSICIAN Internal Medicine Hematology & Oncology; FAMILY PHYSICIAN Internal Medicine
DX: D50.0 Iron deficiency anemia secondary to blood loss (chronic) (principal); D51.9 Vitamin B12 deficiency anemia, unspecified; E11.9 Type 2 diabetes mellitus without complications; E78.5 Hyperlipidemia, unspecified; D62 Acute posthemorrhagic anemia
CPT/HCPCS: 36415; 80076; 82728; 83036; 83540; 83550; 85025

== ENCOUNTER → 2025-04-07 09:23 | Outpatient (REF) | payer MEDICARE, SELFPAY ==
[2025-04-07 10:37] LABS: Hematocrit 42.2 % (37.0-47.0); Hemoglobin 13.7 g/dL (12.0-16.0); Mean Corp Hgb Conc. 32.5 g/dL (33.0-37.0); Mean Corpuscular Volume 89.8 fL (81.0-99.0); Nucleated Red Blood Cells % 0 %; Platelet Count 206 10^3/uL (130-400); Red Cell Dist. Width 13.5 % (11.5-14.5)
[2025-04-07 11:05] LABS: Iron 67 ug/dl (37-170)
[2025-04-07 11:14] LABS: Total Iron Binding Capacity 334 ug/dl (265-497)
[2025-04-07 11:43] LABS: Ferritin 40.6 ng/ml (11.1-264.0)
== END ==
LOC: REG 09:23
PROVIDERS: ATTENDING PHYSICIAN Internal Medicine Hematology & Oncology; FAMILY PHYSICIAN Internal Medicine
DX: D50.0 Iron deficiency anemia secondary to blood loss (chronic) (principal); D51.9 Vitamin B12 deficiency anemia, unspecified
CPT/HCPCS: 36415; 82728; 83540; 83550; 85025

== ENCOUNTER → 2025-04-21 06:27 | Outpatient (REF) | payer MEDICARE, SELFPAY ==
[2025-04-21 08:37] LABS: ALT (SGPT) 24 U/L (0-35); AST (SGOT) 29 U/L (14-36); Albumin 4.5 g/dl (3.5-5.0); Alkaline Phosphatase 55 U/L (38-126); Blood Urea Nitrogen 28 mg/dl (7-17); Calcium 9.5 mg/dl (8.4-10.2); Carbon Dioxide 25 mmol/L (22-30); Chloride 109 mmol/L (98-107); Glucose 130 mg/dl (70-99); Potassium 4.0 mmol/L (3.5-5.1); Sodium 142 mmol/L (135-145); Total Protein 7.3 g/dl (6.3-8.2); eGFR > 60.00
[2025-04-21 08:39] LABS: Glycohemoglobin (HgbA1c) 6.4 % (4.0-5.6)
== END ==
LOC: REG 06:27
PROVIDERS: ATTENDING PHYSICIAN Internal Medicine
DX: E11.9 Type 2 diabetes mellitus without complications (principal)
CPT/HCPCS: 36415; 80053; 83036

== ENCOUNTER → 2025-05-10 08:23 | Outpatient (REF) | payer MEDICARE, SELFPAY ==
[2025-05-10 09:25] LABS: Hematocrit 42.7 % (37.0-47.0); Hemoglobin 13.6 g/dL (12.0-16.0); Mean Corp Hgb Conc. 31.9 g/dL (33.0-37.0); Mean Corpuscular Volume 89.9 fL (81.0-99.0); Nucleated Red Blood Cells % 0 %; Platelet Count 218 10^3/uL (130-400); Red Cell Dist. Width 13.5 % (11.5-14.5)
[2025-05-10 09:50] LABS: Iron 76 ug/dl (37-170)
[2025-05-10 10:00] LABS: Total Iron Binding Capacity 336 ug/dl (265-497)
[2025-05-10 12:00] LABS: Ferritin 40.5 ng/ml (11.1-264.0)
== END ==
LOC: REG 08:23
PROVIDERS: ATTENDING PHYSICIAN Internal Medicine Hematology & Oncology; FAMILY PHYSICIAN Internal Medicine
DX: D50.0 Iron deficiency anemia secondary to blood loss (chronic) (principal); D51.9 Vitamin B12 deficiency anemia, unspecified
CPT/HCPCS: 36415; 82728; 83540; 83550; 85025

== ENCOUNTER → 2025-05-30 08:41 | Outpatient (REF) | payer MEDICARE, SELFPAY ==
[2025-05-30 09:51] LABS: Urine Character Clear (Clear)
[2025-05-30 10:24] LABS: Urine Red Blood Cell 30-40 /HPF (0-2)
== END ==
LOC: REG 08:41
PROVIDERS: ATTENDING PHYSICIAN Internal Medicine
DX: R30.0 Dysuria (principal)
CPT/HCPCS: 81003; 81015; 87086

== ENCOUNTER → 2025-06-08 06:22 | Outpatient (REF) | payer MEDICARE, SELFPAY ==
[2025-06-08 08:18] LABS: Hematocrit 41.9 % (37.0-47.0); Hemoglobin 13.9 g/dL (12.0-16.0); Mean Corp Hgb Conc. 33.2 g/dL (33.0-37.0); Mean Corpuscular Volume 87.7 fL (81.0-99.0); Nucleated Red Blood Cells % 0 %; Platelet Count 215 10^3/uL (130-400); Red Cell Dist. Width 13.2 % (11.5-14.5)
[2025-06-08 08:26] LABS: Urine Character Clear (Clear)
[2025-06-08 09:00] LABS: ALT (SGPT) 23 U/L (0-35); AST (SGOT) 26 U/L (14-36); Albumin 4.3 g/dl (3.5-5.0); Alkaline Phosphatase 57 U/L (38-126); Blood Urea Nitrogen 30 mg/dl (7-17); Calcium 9.4 mg/dl (8.4-10.2); Carbon Dioxide 24 mmol/L (22-30); Chloride 105 mmol/L (98-107); Glucose 128 mg/dl (70-99); HDL Cholesterol 51 mg/dl; Iron 67 ug/dl (37-170); LDL Cholesterol, Calculated 100 mg/dl; Potassium 3.6 mmol/L (3.5-5.1); Sodium 139 mmol/L (135-145); Total Protein 6.9 g/dl (6.3-8.2); Very Low Density Lipoprotein 39 mg/dl (0-30); eGFR > 60.00
[2025-06-08 09:09] LABS: Total Iron Binding Capacity 325 ug/dl (265-497)
[2025-06-08 09:15] LABS: Total Iron Binding Capacity 328 ug/dl (265-497)
[2025-06-08 10:43] LABS: Urine Squamous Cell 0-2 /LPF (Few)
[2025-06-08 10:44] LABS: Urine Red Blood Cell 0-2 /HPF (0-2); Urine White Cell 0-2 /HPF (0-5)
[2025-06-08 13:03] LABS: Ferritin 60.7 ng/ml (11.1-264.0)
[2025-06-08 13:06] LABS: Ferritin 64.8 ng/ml (11.1-264.0)
== END ==
LOC: REG 06:22
PROVIDERS: ATTENDING PHYSICIAN Internal Medicine Gastroenterology; FAMILY PHYSICIAN Internal Medicine; REFERRING PHYSICIAN Internal Medicine Hematology & Oncology
DX: D50.0 Iron deficiency anemia secondary to blood loss (chronic) (principal); D51.9 Vitamin B12 deficiency anemia, unspecified; K86.2 Cyst of pancreas; E78.5 Hyperlipidemia, unspecified; Z51.81 Encounter for therapeutic drug level monitoring; N39.0 Urinary tract infection, site not specified
CPT/HCPCS: 36415; 80053; 80061; 81003; 81015; 82728; 83540; 83550; 85025

== ENCOUNTER → 2025-06-22 08:48 | Outpatient (REF) | payer MEDICARE, SELFPAY ==
[2025-06-22 10:24] LABS: Blood Urea Nitrogen 25 mg/dl (7-17); Calcium 9.1 mg/dl (8.4-10.2); Carbon Dioxide 28 mmol/L (22-30); Chloride 103 mmol/L (98-107); Glucose 98 mg/dl (70-99); Potassium 3.7 mmol/L (3.5-5.1); Sodium 137 mmol/L (135-145); eGFR > 60.00
== END ==
LOC: REG 08:48
PROVIDERS: ATTENDING PHYSICIAN Internal Medicine; REFERRING PHYSICIAN Internal Medicine Hematology & Oncology
DX: Z79.899 Other long term (current) drug therapy (principal)
CPT/HCPCS: 36415; 80048

== ENCOUNTER → 2025-07-24 06:25 | Outpatient (REF) | payer MEDICARE, SELFPAY ==
[2025-07-24 07:49] LABS: Hematocrit 43.8 % (37.0-47.0); Hemoglobin 14.6 g/dL (12.0-16.0); Mean Corp Hgb Conc. 33.3 g/dL (33.0-37.0); Mean Corpuscular Volume 88.0 fL (81.0-99.0); Nucleated Red Blood Cells % 0 %; Platelet Count 225 10^3/uL (130-400); Red Cell Dist. Width 13.2 % (11.5-14.5)
[2025-07-24 08:24] LABS: Iron 75 ug/dl (37-170)
[2025-07-24 08:34] LABS: Total Iron Binding Capacity 300 ug/dl (265-497)
[2025-07-24 09:00] LABS: Ferritin 73.0 ng/ml (11.1-264.0)
[2025-07-24 11:07] LABS: Glycohemoglobin (HgbA1c) 6.2 % (4.0-5.9)
== END ==
LOC: REG 06:25
PROVIDERS: ATTENDING PHYSICIAN Internal Medicine; OTHER PHYSICIAN Internal Medicine Cardiovascular Disease; REFERRING PHYSICIAN Internal Medicine Hematology & Oncology
DX: E11.9 Type 2 diabetes mellitus without complications (principal); D50.0 Iron deficiency anemia secondary to blood loss (chronic); D51.9 Vitamin B12 deficiency anemia, unspecified; D68.32 Hemorrhagic disorder due to extrinsic circulating anticoagulants
CPT/HCPCS: 36415; 82728; 83036; 83540; 83550; 85025